=== PATIENT | female | born 1975 | race Caucasian/White ===

== ENCOUNTER 2016-07-24 18:31 | Emergency (ER) | payer OTHER ==
[~2016-07-24] VITALS: Ht 160 cm; Wt 68.0 kg
[~2016-07-24 18:31] MED LIST: /AUGM875TA OR; ADDE20TA PO; BACL10TA2; CELE10TA PO; CLIN300C PO; FLEXERIL OR; IBUP600T OR; IBUP800T; LIDO5DIS; VALI5TAB OR; VENL75TA2 OR; VICO5TAB PO; VICODAN
[2016-07-24 18:32] VITALS: BP 174/104
[2016-07-24] MEDS ORDERED: EFFE150C PO (18:38)
[2016-07-24] MEDS ORDERED: CLON1TAB PO (18:38)
[2016-07-24] MEDS ORDERED: ACETAMINOPHEN 325 MG TAB PO ONE (19:15)
[2016-07-24] MEDS ORDERED: TYLE325T5 PO (19:16)
[2016-07-24] MEDS ORDERED: AUGM875T27 PO (19:16)
[2016-07-24] MEDS ORDERED: AUGMENTIN 875 MG TAB PO ONE (19:30)
[2016-07-24] MEDS ORDERED: CIPRODEX OTIC SUSP 7.5ML AD SCH (21:00)
== END 2016-07-24 19:57 | disposition home or self-care (01) ==
LOC: M ED 19:22
DX: H60.91 Unspecified otitis externa, right ear (principal); Z87.440 Personal history of urinary (tract) infections; Z79.899 Other long term (current) drug therapy

== ENCOUNTER 2016-08-04 03:42 | Emergency (ER) | payer OTHER ==
[~2016-08-04] VITALS: Ht 160 cm; Wt 68.0 kg
[~2016-08-04 03:42] MED LIST changes: +AUGM875T27 PO; +CLON1TAB PO; +EFFE150C PO; +TYLE325T5 PO
[2016-08-04] MEDS ORDERED: VICO5TAB16 PO (04:19)
[2016-08-04] MEDS ORDERED: HYDR-3713 (04:27)
[2016-08-04 04:58] VITALS: BP 146/89
[2016-08-04] MEDS ORDERED: LOTR1CRE TOP (05:04)
== END 2016-08-04 05:18 | disposition home or self-care (01) ==
LOC: M ED 04:21
DX: B37.2 Candidiasis of skin and nail (principal); F41.9 Anxiety disorder, unspecified; F32.9 Major depressive disorder, single episode, unspecified; Z79.891 Long term (current) use of opiate analgesic; Z79.899 Other long term (current) drug therapy; Z88.8 Allergy status to other drugs, medicaments and biological substances

== ENCOUNTER 2016-09-07 17:35 | Emergency (ER) | payer OTHER ==
[~2016-09-07] VITALS: Ht 160 cm; Wt 79.1 kg
[~2016-09-07 17:35] MED LIST changes: -AUGM875T27 PO; +AUGM875T28 PO; +HYDR-3713; +LOTR1CRE11 TOP; +VICO5TAB16 PO
[2016-09-07 18:05] VITALS: BP 140/90
[2016-09-07] MEDS ORDERED: CLEO300C2 PO (18:05)
[2016-10-22] MEDS ORDERED: PRED20TA PO (10:57)
[2016-10-22] MEDS ORDERED: PERC7.5T11 PO (10:57)
== END 2016-09-07 18:15 | disposition home or self-care (01) ==
LOC: M ED 18:11
DX: L03.116 Cellulitis of left lower limb (principal); Z87.891 Personal history of nicotine dependence; Z79.899 Other long term (current) drug therapy; Z88.8 Allergy status to other drugs, medicaments and biological substances

== ENCOUNTER 2016-10-06 03:19 | Emergency (ER) | payer OTHER ==
[~2016-10-06 03:19] MED LIST changes: +CLEO300C2 PO
[2016-10-06] MEDS ORDERED: KETOROLAC 30 MG/ML VIAL (J1885) IV ONE (04:15)
[2016-10-06] MEDS ORDERED: NS 1,000 ML IV ONE (04:15)
[2016-10-06 05:04] LABS: BASO # 0.1 K/mm3 (0.0-0.2); BASO % 1.2 % (0.0-1.0); EOS # 0.1 K/mm3 (0.0-0.50); EOS % 2.2 % (0.0-3.0); LARGE UNSTAINED CELL # 0.1 K/mm3 (0.0-0.4); LYMPH # 1.8 K/mm3 (1.5-4.5); LYMPH % 30.6 % (24.0-44.0); MEAN CORPUSCULAR HEMOGLOBIN 29.4 pg (27.0-33.0); MEAN CORPUSCULAR HGB CONC 34.3 g/dl (32.0-36.5); MEAN CORPUSCULAR VOLUME 85.6 fl (80.0-96.0); MONO # 0.4 K/mm3 (0.0-0.8); MONO % 7.3 % (0.0-5.0); NEUTROPHILS # 3.3 K/mm3 (1.8-7.7); NEUTROPHILS % 56.7 % (36.0-66.0); PLATELET COUNT, AUTOMATED 293 k/mm3 (150-450); RED CELL DISTRIBUTION WIDTH 14.8 % (11.5-14.5); WHITE BLOOD COUNT 5.8 K/mm3 (4.0-10.0)
[2016-10-06 05:05] LABS: ADD MORPHOLOGY? YES
--- NOTE | 2016-10-06 05:06 | ED PDOC ---
Post-Departure Follow-Up This record was completed partially or completely on paper due to electronic EMR downtime. Please see the scanned paper chart attached. Renetta Dial MD Oct 06, 2016 05:06
[2016-10-06 05:21] LABS: ANISOCYTOSIS 2+; BURR CELLS 1+; OVALOCYTES 1+
[2016-10-06] MEDS ORDERED: ONDANSETRON 4MG/2ML VIAL (J2405) IV ONE (05:45)
[2016-10-06 06:02] LABS: ANION GAP 4 MEQ/L (8-16); BLOOD UREA NITROGEN 13 MG/DL (7-18); CALCIUM LEVEL 8.3 MG/DL (8.5-10.1); CARBON DIOXIDE LEVEL 24 MEQ/L (21-32); CHLORIDE LEVEL 108 MEQ/L (98-107); CREATININE FOR GFR 0.83 MG/DL (0.55-1.02); GLOMERULAR FILTRATION RATE > 60.0 (>60); GLUCOSE, FASTING 88 MG/DL (70-105); SODIUM LEVEL 136 MEQ/L (136-145)
[2016-10-06] MEDS: MORPHINE 4 MG/ML 1ML SYRINGE IV PRN ×2 (06:03→06:48)
[2016-10-06 06:07] LABS: POTASSIUM SERUM 6.1 MEQ/L (3.5-5.1)
[2016-10-06 06:08] VITALS: BP 149/78
[2016-10-06] MEDS ORDERED: PRED20TA PO (06:25)
[2016-10-06] MEDS ORDERED: methylPREDNISolone INJ 125 MG/2 ML VIAL (J2930) IV ONE (06:30)
--- NOTE | 2016-10-06 11:32 | REPUSA ---
CLINICAL HISTORY: Headaches. TECHNIQUE: Multiple axial brain CT scan sections were obtained from base to vertex without contrast a dministration. COMMENTS: The study shows normal configuration of sella turcica. There are no intra or extra-axial collections. There is no mass effect or midline shift. There is no evidence of hematoma formation. No hydrocephal us is present. No abnormal calcifications are noted. No significant abnormalities are seen either in the posterior fossa or supratentorial compartment. The sinuses and mastoid air cells are patent. IMPRESSION: No evidence of acute intracranial pathology. Thank you for your kind referral of this patient.
[2016-10-07] MEDS ORDERED: TYLE325T5 PO (14:41)
[2016-10-22] MEDS ORDERED: PERC7.5T11 PO (10:57)
[2016-10-22] MEDS ORDERED: PRED20TA PO (10:57)
== END 2016-10-06 06:57 | disposition home or self-care (01) ==
LOC: M ED 03:19
DX: M31.6 Other giant cell arteritis (principal); Z88.8 Allergy status to other drugs, medicaments and biological substances; Z79.899 Other long term (current) drug therapy

== ENCOUNTER 2016-10-07 14:20 | Emergency (ER) | payer OTHER ==
[~2016-10-07] VITALS: Ht 160 cm; Wt 68.2 kg
[~2016-10-07 14:20] MED LIST changes: +PRED20TA PO
[2016-10-07] MEDS ORDERED: TYLE325T5 PO (14:41)
[2016-10-07] MEDS ORDERED: methylPREDNISolone INJ 125 MG/2 ML VIAL (J2930) IV ONE (15:15)
[2016-10-07] MEDS ORDERED: MORPHINE 4 MG/ML 1ML SYRINGE IV ONE (15:15)
[2016-10-07] MEDS ORDERED: METOCLOPRAMIDE INJ 10MG/2ML VIAL (J2765) IV ONE (15:15)
[2016-10-07] MEDS ORDERED: NS 1,000 ML IV ONE (15:15)
[2016-10-07 15:36] LABS: EOS # 0.1 K/mm3 (0.0-0.50); EOS % 0.7 % (0.0-3.0); LARGE UNSTAINED CELL % 0.2 % (0.0-4.0); LYMPH % 7.1 % (24.0-44.0); MEAN CORPUSCULAR HEMOGLOBIN 30.3 pg (27.0-33.0); MEAN CORPUSCULAR VOLUME 84.2 fl (80.0-96.0); MONO # 0.5 K/mm3 (0.0-0.8); MONO % 3.3 % (0.0-5.0); NEUTROPHILS # 12.5 K/mm3 (1.8-7.7); NEUTROPHILS % 88.7 % (36.0-66.0); PLATELET COUNT, AUTOMATED 370 k/mm3 (150-450); RED CELL DISTRIBUTION WIDTH 13.8 % (11.5-14.5); WHITE BLOOD COUNT 14.1 K/mm3 (4.0-10.0)
[2016-10-07 15:55] LABS: ANION GAP 5 MEQ/L (8-16); BLOOD UREA NITROGEN 8 MG/DL (7-18); CALCIUM LEVEL 9.2 MG/DL (8.5-10.1); CARBON DIOXIDE LEVEL 26 MEQ/L (21-32); CHLORIDE LEVEL 103 MEQ/L (98-107); CREATININE FOR GFR 0.78 MG/DL (0.55-1.02); GLOMERULAR FILTRATION RATE > 60.0 (>60); GLUCOSE, FASTING 179 MG/DL (70-105); POTASSIUM SERUM 4.3 MEQ/L (3.5-5.1); SODIUM LEVEL 134 MEQ/L (136-145)
[2016-10-07 16:04] LABS: ERYTHROCYTE SEDIMENTATION RATE 17 mm/hr (0-20)
[2016-10-07 16:47] VITALS: BP 151/92
[2016-10-22] MEDS ORDERED: PERC7.5T11 PO (10:57)
[2016-10-22] MEDS ORDERED: PRED20TA PO (10:57)
== END 2016-10-07 16:51 | disposition home or self-care (01) ==
LOC: M ED 14:20
DX: R51 Headache (principal); M31.6 Other giant cell arteritis; R56.9 Unspecified convulsions; I10 Essential (primary) hypertension; F41.9 Anxiety disorder, unspecified; F43.10 Post-traumatic stress disorder, unspecified; Z88.8 Allergy status to other drugs, medicaments and biological substances; Z87.891 Personal history of nicotine dependence; Z79.899 Other long term (current) drug therapy

== ENCOUNTER 2016-10-13 20:53 | Emergency (ER) | payer OTHER ==
[~2016-10-13] VITALS: Ht 160 cm; Wt 80.7 kg
[2016-10-13] MEDS ORDERED: PERC5TAB12 PO (22:25)
[2016-10-13] MEDS ORDERED: PRED20TA PO (22:25)
[2016-10-13] MEDS ORDERED: predniSONE 20 MG TAB PO ONE (22:30)
[2016-10-13] MEDS ORDERED: PERCOCET 5MG/325MG TAB PO ONE (22:30)
[2016-10-13 22:40] VITALS: BP 159/99
[2016-10-22] MEDS ORDERED: PRED20TA PO (10:57)
[2016-10-22] MEDS ORDERED: PERC7.5T11 PO (10:57)
== END 2016-10-13 22:41 | disposition home or self-care (01) ==
LOC: M ED 20:53
DX: R51 Headache (principal); R05 Cough; I10 Essential (primary) hypertension; M31.6 Other giant cell arteritis; F17.210 Nicotine dependence, cigarettes, uncomplicated; Z87.442 Personal history of urinary calculi; Z88.8 Allergy status to other drugs, medicaments and biological substances; Z79.899 Other long term (current) drug therapy

== ENCOUNTER 2016-10-25 11:09 | Day surgery (SDC) | payer OTHER ==
[~2016-10-25] VITALS: Ht 160 cm; Wt 77.1 kg
[~2016-10-25 11:09] MED LIST changes: +PERC5TAB12 PO; +PERC7.5T11 PO
[2016-10-25] MEDS ORDERED: ceFAZolin SOD 1 GM in D5W MINI-BAG PLUS 50 ML IV ONE (11:15)
[2016-10-25] MEDS ORDERED: LR 1,000 ML IV ONE (11:15)
[2016-10-25] MEDS ORDERED: LIDOCAINE 2% INJ 100 MG/5 ML SDV (FOR ANES.) As Ordered ONE (12:44)
[2016-10-25] MEDS ORDERED: ONDANSETRON 4MG/2ML VIAL (J2405) As Ordered ONE (12:44)
[2016-10-25] MEDS ORDERED: MIDAZOLAM INJ 2 MG/2 ML VIAL (J2250) As Ordered ONE (12:44)
[2016-10-25] MEDS ORDERED: fentaNYL 100 MCG/2 ML INJECTION (J3010) As Ordered ONE (12:44)
[2016-10-25] MEDS ORDERED: PROPOFOL 200 MG/20 ML VIAL As Ordered ONE ×2 (12:44→14:11)
[2016-10-25] MEDS ORDERED: LIDOCAINE 1% SDV INJ 30 ML VIAL As Ordered ONE (13:13)
[2016-10-25] MEDS ORDERED: BUPIVACAINE HCL 0.25% 30 ML VIAL As Ordered ONE (13:13)
[2016-10-25] MEDS ORDERED: PERCOCET 5MG/325MG TAB As Ordered ONE (15:01)
[2016-10-25] MEDS ORDERED: ONDANSETRON 4MG/2ML VIAL (J2405) IV PRN (15:15)
[2016-10-25] MEDS ORDERED: PERCOCET 5MG/325MG TAB PO PRN (15:15)
[2016-10-25] MEDS ORDERED: METOCLOPRAMIDE INJ 10MG/2ML VIAL (J2765) IV PRN (15:15)
[2016-10-25] MEDS ORDERED: LR 1,000 ML IV SCH (15:15)
[2016-10-25] MEDS ORDERED: NORCO, ANEXSIA 5/325MG TABLET (HYDROcodone/ACETAMINOPHEN) PO PRN (15:15)
[2016-10-25 15:45] VITALS: BP 148/90
--- NOTE | 2016-10-26 08:54 | RO ---
DATE OF PROCEDURE: 10/25/2016 PREOPERATIVE DIAGNOSIS: Right temporal headaches. POSTOPERATIVE DIAGNOSIS: Right temporal headaches. PROCEDURE: Right temporal artery biopsy. SURGEON: Kza Moffett DO PLANT DIRECTOR: None. ANESTHESIA: Intravenous (IV) sedation with 5 mL of 1% lidocaine plain local. COMPLICATIONS: None. INDICATIONS FOR PROCEDURE: The patient is a 40-year-old female presents with a 3-week history of severe right-sided headaches with blurred vision, swelling over the right scalp, and pain to palpation. She was sent over for temporal artery biopsy. Recommendation was to proceed with procedure. Risks and benefits of procedure not limited but including bleeding, infection, damage to surrounding structures, hematoma, need for further surgery discussed in detail with the patient. Informed consent was obtained, and procedure was planned. DESCRIPTION OF PROCEDURE: The patient brought back to operating room #2 after sufficient sedation. The right scalp was sterilely prepped and draped with Betadine. The temporal artery was mapped out using Doppler; and once that was completed, the skin and subcutaneous tissue was infiltrated with local. Following that, a 4 cm incision was created with a #15 blade scalpel. This incision was carried down through the temporal fascia. Once that was completed, the artery was identified. A length of approximately 2.5 to 3 cm was mobilized gently. There was one branch heading posteriorly that was ligated with clips, then cut. The artery was then ligated proximally and distally with a 2-0 Vicryl suture. The artery was then cut out and sent for biopsy. The subcutaneous tissues were reapproximated with a 3-0 Vicryl suture interrupted, followed by a running 4-0 Vicryl subcuticular suture to approximate the skin edges. Once this was completed, the area was cleaned and dried, and a Steri-Strip was applied, thus ending procedure.
[2016-10-26] MEDS ORDERED: PERC5TAB12 PO (17:00)
[2016-10-26] MEDS ORDERED: CLAR1TAB2 PO (20:56)
== END 2016-10-25 15:40 | disposition home or self-care (01) ==
LOC: M SDC 11:09
PROVIDERS: ATTEND Surgery
DX: R51 Headache (principal); I10 Essential (primary) hypertension; F41.9 Anxiety disorder, unspecified; F32.9 Major depressive disorder, single episode, unspecified; R29.898 Other symptoms and signs involving the musculoskeletal system; M51.9 Unspecified thoracic, thoracolumbar and lumbosacral intervertebral disc disorder; F43.10 Post-traumatic stress disorder, unspecified; R56.9 Unspecified convulsions; Z88.8 Allergy status to other drugs, medicaments and biological substances; Z79.899 Other long term (current) drug therapy; Z98.51 Tubal ligation status; Z72.0 Tobacco use

== ENCOUNTER 2016-10-26 16:53 | Emergency (ER) | payer OTHER ==
[~2016-10-26] VITALS: Ht 160 cm; Wt 79.5 kg
[2016-10-26] MEDS ORDERED: PERC5TAB12 PO (17:00)
[2016-10-26] MEDS ORDERED: MORPHINE 4 MG/ML 1ML SYRINGE IM ONE (19:00)
[2016-10-26 20:28] VITALS: BP 150/108
[2016-10-26] MEDS ORDERED: PERCOCET 5MG/325MG TAB PO ONE (20:30)
[2016-10-26] MEDS ORDERED: CLAR1TAB2 PO (20:56)
== END 2016-10-26 21:10 | disposition home or self-care (01) ==
LOC: M ED 16:53
DX: G89.18 Other acute postprocedural pain (principal); R21 Rash and other nonspecific skin eruption

== ENCOUNTER → 2016-11-02 | Outpatient (REF) | payer OTHER ==
[~2016-11-02] MED LIST changes: +CIPR0.3S AS; +CLAR1TAB2 PO; +INDO25CA PO; +TRAM50TA2 PO
== END ==
LOC: M LAB REF 21:17
PROVIDERS: ATTEND Physician Assistant
DX: L30.9 Dermatitis, unspecified (principal)

== ENCOUNTER → 2016-11-02 | Outpatient (REF) ==
--- NOTE | 2016-11-02 16:56 | REP ---
LUMBOSACRAL SPINE: Three AP and lateral views of the lumbosacral spine are performed. There is no compression fracture or malalignment with normal lumbar lordosis. There is no evidence of spondylolysis or spondylolisthesis. There appears to be mild disc space narrowing at L5-S1 with mild sclerosis at the posterior facet joints at that level. The posterior elements are intact. IMPRESSION: Mild degenerative changes L5-S1 level. Signed by Kaz Roberts MD 11/02/2016 05:11 P
== END ==
LOC: M SMT 12:59
PROVIDERS: ATTEND Internal Medicine
DX: Z02.9 Encounter for administrative examinations, unspecified (principal); L30.9 Dermatitis, unspecified

== ENCOUNTER → 2016-11-10 | Outpatient (CLI) | payer OTHER ==
[2016-11-10 08:47] LABS: MEAN CORPUSCULAR HEMOGLOBIN 31.1 pg (27.0-33.0); MEAN CORPUSCULAR HGB CONC 36.3 g/dl (32.0-36.5); MEAN CORPUSCULAR VOLUME 85.7 fl (80.0-96.0); RED CELL DISTRIBUTION WIDTH 15.7 % (11.5-14.5); WHITE BLOOD COUNT 7.6 K/mm3 (4.0-10.0)
[2016-11-10 09:27] LABS: ALBUMIN 3.7 GM/DL (3.2-5.2); ALBUMIN/GLOBULIN RATIO 1.09 (1.00-1.93); ALKALINE PHOSPHATASE 75 U/L (45-117); ALT/SGPT 54 U/L (12-78); ANION GAP 7 MEQ/L (8-16); AST/SGOT 29 U/L (15-37); BILIRUBIN,TOTAL 0.4 MG/DL (0.2-1.0); BLOOD UREA NITROGEN 11 MG/DL (7-18); CARBON DIOXIDE LEVEL 25 MEQ/L (21-32); CHLORIDE LEVEL 108 MEQ/L (98-107); CHOLESTEROL LEVEL 218 MG/DL (<200); CREATININE FOR GFR 0.76 MG/DL (0.55-1.02); GLOMERULAR FILTRATION RATE > 60.0 (>60); GLUCOSE, FASTING 110 MG/DL (70-105); POTASSIUM SERUM 4.8 MEQ/L (3.5-5.1); SODIUM LEVEL 140 MEQ/L (136-145); TOTAL PROTEIN 7.1 GM/DL (6.4-8.2); TRIGLYCERIDES LEVEL 178 MG/DL (<150)
== END ==
LOC: M LAB 08:06
PROVIDERS: ATTEND Family Medicine
DX: R53.83 Other fatigue (principal)

== ENCOUNTER 2017-01-12 18:16 | Emergency (ER) | payer OTHER ==
[~2017-01-12] VITALS: Ht 160 cm; Wt 83.2 kg
[2017-01-12 18:16] VITALS: BP 169/108
[~2017-01-12 18:16] MED LIST changes: -CIPR0.3S AS; -INDO25CA PO; -TRAM50TA2 PO
[2017-01-13] MEDS ORDERED: TRAM50TA2 PO (14:46)
[2017-01-13] MEDS ORDERED: INDO25CA PO (14:46)
[2017-01-13] MEDS ORDERED: CIPR0.3S AS ×2 (14:46→14:55)
== END 2017-01-12 19:00 | disposition left against medical advice (07) ==
LOC: M ED 18:16
DX: H92.09 Otalgia, unspecified ear (principal); Z53.21 Procedure and treatment not carried out due to patient leaving prior to being seen by health care provider

== ENCOUNTER 2017-01-13 13:25 | Emergency (ER) | payer OTHER ==
[~2017-01-13] VITALS: Ht 160 cm; Wt 82.7 kg
[2017-01-13] MEDS ORDERED: TRAM50TA2 PO (14:46)
[2017-01-13] MEDS ORDERED: CIPR0.3S AS ×2 (14:46→14:55)
[2017-01-13] MEDS ORDERED: INDO25CA PO (14:46)
[2017-01-13 15:02] VITALS: BP 164/120
--- NOTE | 2017-01-13 15:24 | REP ---
Chest x-ray: Two views. History: Right-sided neck and facial swelling. . Comparison study: March 18, 2016. . Findings: The lungs are well inflated and free of infiltrate. The pleural angles are sharp. The heart size is normal. Pulmonary vasculature is not increased. No significant bony abnormality is seen. Impression: Negative chest x-ray. Signed by Sincere Pena MD 01/13/2017 03:16 P
== END 2017-01-13 15:35 | disposition home or self-care (01) ==
LOC: M ED 13:25
DX: H60.92 Unspecified otitis externa, left ear (principal); R22.0 Localized swelling, mass and lump, head; I10 Essential (primary) hypertension; R51 Headache; R56.9 Unspecified convulsions; F41.9 Anxiety disorder, unspecified; F33.9 Major depressive disorder, recurrent, unspecified; F43.10 Post-traumatic stress disorder, unspecified; Z79.899 Other long term (current) drug therapy; Z88.8 Allergy status to other drugs, medicaments and biological substances

== ENCOUNTER 2017-02-15 16:51 | Emergency (ER) | payer OTHER ==
[~2017-02-15] VITALS: Ht 160 cm; Wt 81.8 kg
[~2017-02-15 16:51] MED LIST changes: +CIPR0.3S AS; +INDO25CA PO; +TRAM50TA2 PO
[2017-02-15] MEDS ORDERED: OXAY1TAB (17:16)
[2017-02-15] MEDS ORDERED: VALI5TAB PO (17:16)
[2017-02-15] MEDS ORDERED: NS 1,000 ML IV ONE (20:00)
[2017-02-15] MEDS ORDERED: KETOROLAC 30 MG/ML VIAL (J1885) IV ONE (20:00)
[2017-02-15] MEDS ORDERED: MORPHINE 4 MG/ML 1ML SYRINGE IV ONE (20:00)
[2017-02-15] MEDS ORDERED: HYDROmorphone HCL 1 MG/ML SYRINGE (J1170) IV PRN (21:15)
[2017-02-15] MEDS ORDERED: METOCLOPRAMIDE INJ 10MG/2ML VIAL (J2765) IV ONE (21:15)
[2017-02-15 21:22] VITALS: BP 159/92
== END 2017-02-15 21:59 | disposition home or self-care (01) ==
LOC: M ED 16:51
DX: R51 Headache (principal); Z87.891 Personal history of nicotine dependence
CPT/HCPCS: 96361; 96374; 96375; 99284; J1170; J1885; J2765

== ENCOUNTER → 2017-02-28 | Outpatient (REF) | payer OTHER ==
[~2017-02-28] MED LIST changes: +OXAY1TAB; +VALI5TAB PO
[2017-02-28 17:48] LABS: ANION GAP 12 MEQ/L (8-16); BLOOD UREA NITROGEN 9 MG/DL (7-18); CALCIUM LEVEL 8.7 MG/DL (8.5-10.1); CARBON DIOXIDE LEVEL 21 MEQ/L (21-32); CHLORIDE LEVEL 107 MEQ/L (98-107); CREATININE FOR GFR 0.72 MG/DL (0.55-1.02); GLOMERULAR FILTRATION RATE > 60.0 (>60); GLUCOSE, FASTING 94 MG/DL (70-105); POTASSIUM SERUM 4.4 MEQ/L (3.5-5.1); SODIUM LEVEL 140 MEQ/L (136-145)
[2017-02-28 18:01] LABS: MEAN CORPUSCULAR HGB CONC 33.4 g/dl (32.0-36.5); MEAN CORPUSCULAR VOLUME 86.8 fl (80.0-96.0); PLATELET COUNT, AUTOMATED 368 10^3/uL (150-450); RED CELL DISTRIBUTION WIDTH 14.4 % (11.5-14.5); WHITE BLOOD COUNT 6.4 10^3/uL (4.0-10.0)
== END ==
LOC: M SFHCLERA 12:51
PROVIDERS: ATTEND Family Medicine
DX: Z79.899 Other long term (current) drug therapy (principal); F43.10 Post-traumatic stress disorder, unspecified; F41.1 Generalized anxiety disorder

== ENCOUNTER 2017-04-04 21:35 | Emergency (ER) | payer OTHER ==
[2017-04-05] MEDS: ONDANSETRON 4MG/2ML VIAL (J2405) IV (00:45)
[2017-04-05] MEDS: NS 1,000 ML IV (00:45)
[2017-04-05] MEDS: HYDROmorphone HCL 1 MG/ML SYRINGE (J1170) IV (00:53)
[2017-04-05] MEDS: HYDROmorphone 2 MG TAB PO (02:00)
== END 2017-04-05 02:11 | disposition home or self-care (01) ==
LOC: M ED 21:35
DX: R51 Headache (principal); G89.29 Other chronic pain; R56.9 Unspecified convulsions; F41.9 Anxiety disorder, unspecified; F33.9 Major depressive disorder, recurrent, unspecified; F43.10 Post-traumatic stress disorder, unspecified; Z79.899 Other long term (current) drug therapy; Z88.8 Allergy status to other drugs, medicaments and biological substances; Z98.890 Other specified postprocedural states; Z87.891 Personal history of nicotine dependence
CPT/HCPCS: J1170

== ENCOUNTER 2017-04-11 20:19 | Emergency (ER) | payer OTHER ==
[2017-04-11] MEDS: oxyCODONE 5MG TAB PO (21:11)
[2017-04-11] MEDS: ONDANSETRON 4 MG ORAL DISINTEGRATING TAB (S0181) PO (21:12)
== END 2017-04-11 21:34 | disposition home or self-care (01) ==
LOC: M ED 20:19
DX: R51 Headache (principal); R11.2 Nausea with vomiting, unspecified; R53.83 Other fatigue
CPT/HCPCS: 99283

== ENCOUNTER 2017-04-29 05:44 | Emergency (ER) | payer OTHER ==
[2017-04-29] MEDS: ONDANSETRON 4MG/2ML VIAL (J2405) IV (07:47)
[2017-04-29] MEDS: MORPHINE 4 MG/ML 1ML VIAL (J2270) IV (07:47)
[2017-04-29] MEDS: NS 1,000 ML IV (07:48)
[2017-04-29 08:05] LABS: BASO % 0.5 % (0.0-1.0); EOS # 0.2 10^3/uL (0.0-0.50); EOS % 1.8 % (0.0-3.0); HEMATOCRIT 39.7 % (36.0-47.0); HEMOGLOBIN 13.6 g/dl (12.0-16.0); IMMATURE GRANULOCYTE % 0.2 % (0-3.0); LYMPH # 2.1 10^3/uL (1.5-4.5); LYMPH % 24.6 % (24.0-44.0); MEAN CORPUSCULAR HEMOGLOBIN 28.8 pg (27.0-33.0); MEAN CORPUSCULAR HGB CONC 34.3 g/dl (32.0-36.5); MEAN CORPUSCULAR VOLUME 83.9 fl (80.0-96.0); MONO # 0.6 10^3/uL (0.0-0.8); MONO % 7.5 % (0.0-5.0); NEUTROPHILS # 5.6 10^3/uL (1.8-7.7); NEUTROPHILS % 65.4 % (36.0-66.0); PLATELET COUNT, AUTOMATED 331 10^3/uL (150-450); RED BLOOD COUNT 4.73 10^6/uL (4.00-5.40); RED CELL DISTRIBUTION WIDTH 13.1 % (11.5-14.5); WHITE BLOOD COUNT 8.5 10^3/uL (4.0-10.0)
[2017-04-29 08:34] LABS: ALBUMIN 3.9 GM/DL (3.2-5.2); ALBUMIN/GLOBULIN RATIO 1.03 (1.00-1.93); ALKALINE PHOSPHATASE 86 U/L (45-117); ALT/SGPT 29 U/L (12-78); AMYLASE 40 U/L (25-115); ANION GAP 7 MEQ/L (8-16); AST/SGOT 13 U/L (7-37); BILIRUBIN,DIRECT < 0.1 MG/DL (0.0-0.2); BILIRUBIN,TOTAL 0.4 MG/DL (0.2-1.0); BLOOD UREA NITROGEN 14 MG/DL (7-18); CALCIUM LEVEL 8.5 MG/DL (8.5-10.1); CARBON DIOXIDE LEVEL 23 MEQ/L (21-32); CHLORIDE LEVEL 110 MEQ/L (98-107); CREATININE FOR GFR 0.95 MG/DL (0.55-1.30); FREE T4 0.86 NG/DL (0.76-1.46); GLOMERULAR FILTRATION RATE > 60.0 (>60); GLUCOSE, FASTING 113 MG/DL (70-100); POTASSIUM SERUM 3.7 MEQ/L (3.5-5.1); SODIUM LEVEL 140 MEQ/L (136-145); TOTAL PROTEIN 7.7 GM/DL (6.4-8.2)
[2017-04-29] MEDS ORDERED: ISOVUE-370 76% 100ML VIAL (Q9967) As Ordered (08:36)
== END 2017-04-29 09:37 | disposition home or self-care (01) ==
LOC: M ED 05:44
DX: E03.9 Hypothyroidism, unspecified (principal); E04.1 Nontoxic single thyroid nodule; I10 Essential (primary) hypertension; G43.909 Migraine, unspecified, not intractable, without status migrainosus; F43.10 Post-traumatic stress disorder, unspecified; M51.9 Unspecified thoracic, thoracolumbar and lumbosacral intervertebral disc disorder; Z79.899 Other long term (current) drug therapy; Z88.8 Allergy status to other drugs, medicaments and biological substances; Z87.891 Personal history of nicotine dependence
CPT/HCPCS: J2270

== ENCOUNTER → 2017-05-06 | Outpatient (CLI) | payer OTHER | LOC: M PAIN 09:30 | DX: M46.1 Sacroiliitis, not elsewhere classified (principal); M51.16 Intervertebral disc disorders with radiculopathy, lumbar region; M51.17 Intervertebral disc disorders with radiculopathy, lumbosacral region; M54.5 Low back pain; G89.29 Other chronic pain; M41.9 Scoliosis, unspecified; F41.9 Anxiety disorder, unspecified; M79.7 Fibromyalgia; E03.9 Hypothyroidism, unspecified; Z79.899 Other long term (current) drug therapy; Z88.8 Allergy status to other drugs, medicaments and biological substances; Z87.891 Personal history of nicotine dependence | CPT/HCPCS: G0463 ==

== ENCOUNTER 2017-05-07 18:34 | Emergency (ER) | payer OTHER ==
[2017-05-07] MEDS: zolPIDEM TARTRATE 5 MG TAB PO (21:57)
[2017-05-07] MEDS: LIDOCAINE VISCOUS 2% SOLN 15ML UDC MT (22:00)
== END 2017-05-07 22:11 | disposition home or self-care (01) ==
LOC: M ED 18:34
DX: E06.9 Thyroiditis, unspecified (principal); I10 Essential (primary) hypertension; Z87.891 Personal history of nicotine dependence; Z79.899 Other long term (current) drug therapy; Z88.8 Allergy status to other drugs, medicaments and biological substances
CPT/HCPCS: 87880

== ENCOUNTER → 2017-05-11 | Outpatient (REF) | payer OTHER ==
[2017-05-11 12:02] LABS: THYROID PEROXIDASE ANTIBODY < 28.0 U/ML (<60.0)
[2017-05-11 12:04] LABS: TOTAL T3 122.4 NG/DL (60.0-181.0)
[2017-05-11 12:21] LABS: FREE T4 0.93 NG/DL (0.76-1.46)
== END ==
LOC: M LABDRAW1 10:39
DX: E03.9 Hypothyroidism, unspecified (principal)
CPT/HCPCS: 84443

== ENCOUNTER 2017-05-20 03:44 | Emergency (ER) | payer OTHER ==
[2017-05-20] MEDS: KETOROLAC 60 MG/2 ML VIAL (J1885) IM (06:30)
[2017-05-20 06:59] LABS: BASO # 0.1 10^3/uL (0.0-0.2); BASO % 0.7 % (0.0-1.0); EOS # 0.2 10^3/uL (0.0-0.50); HEMATOCRIT 36.3 % (36.0-47.0); HEMOGLOBIN 12.7 g/dl (12.0-16.0); IMMATURE GRANULOCYTE % 0.1 % (0-3.0); LYMPH # 2.1 10^3/uL (1.5-4.5); MEAN CORPUSCULAR HEMOGLOBIN 29.3 pg (27.0-33.0); MEAN CORPUSCULAR VOLUME 83.6 fl (80.0-96.0); MONO # 0.8 10^3/uL (0.0-0.8); MONO % 9.5 % (0.0-5.0); NEUTROPHILS # 4.9 10^3/uL (1.8-7.7); NEUTROPHILS % 60.7 % (36.0-66.0); PLATELET COUNT, AUTOMATED 298 10^3/uL (150-450); RED BLOOD COUNT 4.34 10^6/uL (4.00-5.40); RED CELL DISTRIBUTION WIDTH 13.1 % (11.5-14.5)
[2017-05-20] MEDS ORDERED: ACETAMINOPHEN 325 MG TAB PO (07:15)
[2017-05-20 07:30] LABS: ERYTHROCYTE SEDIMENTATION RATE 24 mm/hr (0-20)
[2017-05-20] MEDS: oxyCODONE 5MG TAB PO (07:46)
== END 2017-05-20 08:16 | disposition home or self-care (01) ==
LOC: M ED 03:44
DX: M54.2 Cervicalgia (principal); G89.29 Other chronic pain; G43.009 Migraine without aura, not intractable, without status migrainosus; R21 Rash and other nonspecific skin eruption; F17.210 Nicotine dependence, cigarettes, uncomplicated; Z79.899 Other long term (current) drug therapy; Z88.8 Allergy status to other drugs, medicaments and biological substances
CPT/HCPCS: J1885

== ENCOUNTER → 2017-05-30 | Outpatient (REF) | payer OTHER | LOC: M LAB REF 14:19 | DX: E04.2 Nontoxic multinodular goiter (principal) ==

== ENCOUNTER 2017-06-01 20:33 | Emergency (ER) | payer OTHER ==
[2017-06-01] MEDS: KETOROLAC 30 MG/ML VIAL (J1885) IV (23:30)
[2017-06-02 00:14] LABS: ANION GAP 7 MEQ/L (8-16); BLOOD UREA NITROGEN 18 MG/DL (7-18); CALCIUM LEVEL 9.2 MG/DL (8.5-10.1); CARBON DIOXIDE LEVEL 25 MEQ/L (21-32); CHLORIDE LEVEL 110 MEQ/L (98-107); GLOMERULAR FILTRATION RATE > 60.0 (>60); GLUCOSE, FASTING 104 MG/DL (70-100); POTASSIUM SERUM 4.1 MEQ/L (3.5-5.1); SODIUM LEVEL 142 MEQ/L (136-145)
[2017-06-02] MEDS ORDERED: ISOVUE-370 76% 100ML VIAL (Q9967) As Ordered (00:32)
[2017-06-02] MEDS: PERCOCET 5MG/325MG TAB PO (02:24)
== END 2017-06-02 02:30 | disposition home or self-care (01) ==
LOC: M ED 20:33
DX: G43.909 Migraine, unspecified, not intractable, without status migrainosus (principal); Z88.8 Allergy status to other drugs, medicaments and biological substances; Z79.899 Other long term (current) drug therapy
CPT/HCPCS: Q9967

== ENCOUNTER → 2017-06-06 | Outpatient (CLI) | payer OTHER | LOC: M PAIN 11:15 | DX: M46.1 Sacroiliitis, not elsewhere classified (principal); M51.16 Intervertebral disc disorders with radiculopathy, lumbar region; M51.17 Intervertebral disc disorders with radiculopathy, lumbosacral region; M54.5 Low back pain; G89.29 Other chronic pain; F32.9 Major depressive disorder, single episode, unspecified; F41.9 Anxiety disorder, unspecified; Z79.891 Long term (current) use of opiate analgesic; Z79.899 Other long term (current) drug therapy; Z88.8 Allergy status to other drugs, medicaments and biological substances; Z87.891 Personal history of nicotine dependence | CPT/HCPCS: G0463 ==

== ENCOUNTER → 2017-06-20 | Outpatient (CLI) | payer OTHER | LOC: M PAIN 14:30 | DX: M51.16 Intervertebral disc disorders with radiculopathy, lumbar region (principal); M51.17 Intervertebral disc disorders with radiculopathy, lumbosacral region; M54.5 Low back pain; M79.7 Fibromyalgia; F41.9 Anxiety disorder, unspecified; E03.9 Hypothyroidism, unspecified; M41.9 Scoliosis, unspecified; Z79.891 Long term (current) use of opiate analgesic; Z79.899 Other long term (current) drug therapy; Z88.8 Allergy status to other drugs, medicaments and biological substances; Z87.891 Personal history of nicotine dependence | CPT/HCPCS: G0463 ==

== ENCOUNTER → 2017-07-04 | Outpatient (CLI) | payer OTHER | LOC: M PAIN 10:30 | DX: M51.16 Intervertebral disc disorders with radiculopathy, lumbar region (principal); M51.17 Intervertebral disc disorders with radiculopathy, lumbosacral region; M54.5 Low back pain; M79.7 Fibromyalgia; F41.9 Anxiety disorder, unspecified; E03.9 Hypothyroidism, unspecified; Z79.891 Long term (current) use of opiate analgesic; Z79.899 Other long term (current) drug therapy; Z88.8 Allergy status to other drugs, medicaments and biological substances; Z87.891 Personal history of nicotine dependence | CPT/HCPCS: G0463 ==

== ENCOUNTER → 2017-07-06 | Outpatient (REF) | payer OTHER ==
[2017-07-06 15:48] LABS: BASO % 0.6 % (0.0-1.0); EOS # 0.1 10^3/uL (0.0-0.50); EOS % 1.9 % (0.0-3.0); HEMATOCRIT 37.8 % (36.0-47.0); IMMATURE GRANULOCYTE % 0.3 % (0-3.0); LYMPH # 1.4 10^3/uL (1.5-4.5); LYMPH % 19.6 % (24.0-44.0); MEAN CORPUSCULAR HEMOGLOBIN 28.3 pg (27.0-33.0); MEAN CORPUSCULAR HGB CONC 34.4 g/dl (32.0-36.5); MEAN CORPUSCULAR VOLUME 82.2 fl (80.0-96.0); MONO # 0.4 10^3/uL (0.0-0.8); MONO % 6.2 % (0.0-5.0); NEUTROPHILS % 71.4 % (36.0-66.0); PLATELET COUNT, AUTOMATED 320 10^3/uL (150-450); RED CELL DISTRIBUTION WIDTH 13.2 % (11.5-14.5); WHITE BLOOD COUNT 6.9 10^3/uL (4.0-10.0)
[2017-07-06 16:08] LABS: ALBUMIN 3.8 GM/DL (3.2-5.2); ALBUMIN/GLOBULIN RATIO 1.06 (1.00-1.93); ALKALINE PHOSPHATASE 98 U/L (45-117); ALT/SGPT 36 U/L (12-78); ANION GAP 5 MEQ/L (8-16); AST/SGOT 22 U/L (7-37); BILIRUBIN,TOTAL 0.4 MG/DL (0.2-1.0); BLOOD UREA NITROGEN 9 MG/DL (7-18); CALCIUM LEVEL 8.8 MG/DL (8.5-10.1); CARBON DIOXIDE LEVEL 24 MEQ/L (21-32); CHLORIDE LEVEL 112 MEQ/L (98-107); CREATININE FOR GFR 0.86 MG/DL (0.55-1.30); GLOMERULAR FILTRATION RATE > 60.0 (>60); GLUCOSE, FASTING 115 MG/DL (70-100); POTASSIUM SERUM 4.1 MEQ/L (3.5-5.1); RHEUMATOID FACTOR QUANT < 10.0 IU/ML (<15.0); SODIUM LEVEL 141 MEQ/L (136-145); THYROID STIMULATING HORMONE 0.975 uIU/ML (0.358-3.740); TOTAL PROTEIN 7.4 GM/DL (6.4-8.2)
[2017-07-06 16:38] LABS: ERYTHROCYTE SEDIMENTATION RATE 27 mm/hr (0-20)
[2017-07-08 14:19] LABS: ANTINUCLEAR ANTIBODIES DIRECT Negative (Negative)
== END ==
LOC: M LABDRAW1 14:16
DX: R51 Headache (principal)

== ENCOUNTER → 2017-07-18 | Outpatient (CLI) | payer OTHER | LOC: M PAIN 11:45 | DX: G89.29 Other chronic pain (principal); M51.16 Intervertebral disc disorders with radiculopathy, lumbar region; M51.17 Intervertebral disc disorders with radiculopathy, lumbosacral region; M54.5 Low back pain; M79.7 Fibromyalgia; F41.9 Anxiety disorder, unspecified; E03.9 Hypothyroidism, unspecified; E04.1 Nontoxic single thyroid nodule; Z79.891 Long term (current) use of opiate analgesic; Z87.891 Personal history of nicotine dependence; Z79.899 Other long term (current) drug therapy; Z88.8 Allergy status to other drugs, medicaments and biological substances | CPT/HCPCS: G0463 ==

== ENCOUNTER → 2017-07-26 | Outpatient (REF) | payer OTHER ==
[2017-07-26 22:33] LABS: CONTROL LINE MONO INT CTR LINE PRESENT; MONO SCRN NEGATIVE (NEGATIVE)
[2017-07-27 07:57] LABS: FOLATE 5.7 NG/ML; VITAMIN B12 LEVEL 202 PG/ML
[2017-07-29 00:09] LABS: Lyme Disease IgG/IgM Antibodie <0.91 ISR (0.00-0.90); Lyme Disease IgM Ab Quantitati <0.80 index (0.00-0.79)
== END ==
LOC: M LABDRAW1 17:15
DX: M51.16 Intervertebral disc disorders with radiculopathy, lumbar region (principal)

== ENCOUNTER → 2017-08-09 | Outpatient (CLI) | payer OTHER | LOC: M PAIN 10:30 | DX: M51.16 Intervertebral disc disorders with radiculopathy, lumbar region (principal); M51.17 Intervertebral disc disorders with radiculopathy, lumbosacral region; M54.5 Low back pain; M79.7 Fibromyalgia; F41.9 Anxiety disorder, unspecified; E03.9 Hypothyroidism, unspecified; Z79.891 Long term (current) use of opiate analgesic; Z79.899 Other long term (current) drug therapy; Z88.8 Allergy status to other drugs, medicaments and biological substances; Z87.891 Personal history of nicotine dependence | CPT/HCPCS: G0463 ==

== ENCOUNTER → 2017-09-30 | Outpatient (CLI) | payer OTHER | LOC: M PAIN 10:45 | DX: M51.16 Intervertebral disc disorders with radiculopathy, lumbar region (principal); M51.17 Intervertebral disc disorders with radiculopathy, lumbosacral region; M79.7 Fibromyalgia; Z79.891 Long term (current) use of opiate analgesic; T40.2X5A Adverse effect of other opioids, initial encounter; K59.03 Drug induced constipation; M41.9 Scoliosis, unspecified; F41.9 Anxiety disorder, unspecified; E03.9 Hypothyroidism, unspecified; E04.1 Nontoxic single thyroid nodule; Z87.891 Personal history of nicotine dependence; Z79.899 Other long term (current) drug therapy; Z88.8 Allergy status to other drugs, medicaments and biological substances | CPT/HCPCS: G0463 ==

== ENCOUNTER → 2017-12-19 | Outpatient (CLI) | payer OTHER | LOC: M PAIN 11:30 | DX: M51.16 Intervertebral disc disorders with radiculopathy, lumbar region (principal); M51.17 Intervertebral disc disorders with radiculopathy, lumbosacral region; M79.7 Fibromyalgia; T40.2X5A Adverse effect of other opioids, initial encounter; K59.03 Drug induced constipation; F41.9 Anxiety disorder, unspecified; E03.9 Hypothyroidism, unspecified; I10 Essential (primary) hypertension; F43.10 Post-traumatic stress disorder, unspecified; Z72.0 Tobacco use; Z79.899 Other long term (current) drug therapy; Z88.8 Allergy status to other drugs, medicaments and biological substances | CPT/HCPCS: G0463 ==

== ENCOUNTER → 2018-01-13 | Outpatient (CLI) | payer OTHER | LOC: M RAD 15:54 | DX: M51.16 Intervertebral disc disorders with radiculopathy, lumbar region (principal) | CPT/HCPCS: 72148 ==

== ENCOUNTER → 2018-01-19 | Outpatient (CLI) | payer OTHER | LOC: M PAIN 11:30 | DX: M51.16 Intervertebral disc disorders with radiculopathy, lumbar region (principal); M51.17 Intervertebral disc disorders with radiculopathy, lumbosacral region; M79.7 Fibromyalgia; Z79.891 Long term (current) use of opiate analgesic; T40.2X5A Adverse effect of other opioids, initial encounter; K59.03 Drug induced constipation; F41.9 Anxiety disorder, unspecified; M41.9 Scoliosis, unspecified; E03.9 Hypothyroidism, unspecified; E04.1 Nontoxic single thyroid nodule; I10 Essential (primary) hypertension; F43.10 Post-traumatic stress disorder, unspecified; F17.210 Nicotine dependence, cigarettes, uncomplicated; Z79.899 Other long term (current) drug therapy; Z88.8 Allergy status to other drugs, medicaments and biological substances | CPT/HCPCS: G0463 ==

== ENCOUNTER 2018-03-07 07:50 | Emergency (ER) | payer OTHER | END 2018-03-07 09:45 | disposition home or self-care (01) | LOC: M ED 07:50 | DX: M25.471 Effusion, right ankle (principal); M25.472 Effusion, left ankle; M25.461 Effusion, right knee; M25.462 Effusion, left knee; I10 Essential (primary) hypertension; M51.9 Unspecified thoracic, thoracolumbar and lumbosacral intervertebral disc disorder; F43.10 Post-traumatic stress disorder, unspecified; F41.9 Anxiety disorder, unspecified; F32.9 Major depressive disorder, single episode, unspecified; G43.909 Migraine, unspecified, not intractable, without status migrainosus; Z87.442 Personal history of urinary calculi; M79.7 Fibromyalgia; G25.81 Restless legs syndrome; M19.90 Unspecified osteoarthritis, unspecified site; Z72.0 Tobacco use; Z79.899 Other long term (current) drug therapy; Z88.8 Allergy status to other drugs, medicaments and biological substances | CPT/HCPCS: 93970 ==

== ENCOUNTER → 2018-03-17 | Outpatient (CLI) | payer OTHER ==
[~2018-03-17] MED LIST changes: +AMBI10TA PO; +BUSP1TAB PO; -CLON1TAB PO; +CLON1TAB8 PO; +DULO30CA PO; -EFFE150C PO; +EFFE150C2 PO; +HYDR25OI TOP; +LACT10SO3 PO; +LIDO1SOL7 MT; -LOTR1CRE11 TOP; +LOTR1CRE12 TOP; +MOVA1TAB2 PO; +OXYC-517 PO; +OXYC1TAB23 PO; +SUCR1TA PO; +TRAM50TA2; +ZOFR4TAB14 PO; +ZONI100C2 PO; +ZONI25CA2 PO; +[UNRECOGNIZED DRUG - CODE] PO
--- NOTE | 2018-03-17 16:37 | REP ---
MRI brain without contrast: History: Headache . Comparison study: No comparison brain MRI. Comparison brain CT study October 06, 2016. Technique: Axial and sagittal imaging planes are utilized for T1 and T2-weighted scans. Sequences include spin-echo, fast spin echo, FLAIR, and diffusion weighted sequences. MRI findings: There is magnetic field susceptibility artifact emanating from the right cheek soft tissues in this patient with known dermal piercing. No bony calvarial lesion is seen. Craniocervical junction and upper cervical cord are normal in appearance. There is no MR evidence of significant paranasal sinus disease. No intraorbital abnormality is seen. The lateral, third, and fourth ventricles are normal in size and position. Roberts-white differentiation pattern is intact above and below the tentorium. There is no evidence of intracranial hemorrhage. No mass, infarction, extra-axial fluid collection or midline shift is seen. No abnormal white matter lesion is seen. Impression: Negative noncontrast brain MRI study. Electronically Signed by Sincere Pena MD 03/17/2018 04:28 P
== END ==
LOC: M PLARAD 13:29
PROVIDERS: ATTEND Physician Assistant Medical
DX: R51 Headache (principal); R41.840 Attention and concentration deficit

== ENCOUNTER → 2018-04-11 | Outpatient (CLI) | payer OTHER ==
--- NOTE | 2018-04-22 00:38 | ECWPNPC ---
PATIENT NAME: DENISE ABAD : 1975 GENDER: FEMALE VISIT DATE: 04/11/2018 DISCHARGE DATE: 04/11/18 1501 VISIT LOCKED DATE TIME: PHYSICIAN: CHARAN FERRELL RESOURCE: CHARAN FERRELL REASON FOR APPOINTMENT 1. SW PT-BACK HISTORY OF PRESENT ILLNESS HISTORY OF PRESENT ILLNESS: HERE FOR ROUTINE F/U AND MANAGEMENT OF CHRONIC GENERALIZED BODY PAIN.COMPLAINING OF INCEASE IN KNEE PAIN LATELY.RATING PAIN VAS 8/10.PAIN AWAKENS HER FROM SLEEP.DESCRIBES PAIN CONSTANT,ACHING AND BURNING. PAIN THE PATIENT DESCRIBES THE PAIN... FALL RISK SCREENING: SCREENING :NO FALLS IN THE PAST YEAR CURRENT MEDICATIONS TAKING CARAFATE 1 GM TABLET 1 TABLET ORALLY FOUR TIMES DAILY PRN TAKING CYMBALTA 60 MG CAPSULE DELAYED RELEASE PARTICLES 1 CAPSULE ORALLY BID TAKING LACTULOSE 10 GM/15ML SOLUTION 15 ML ORALLY ONCE A DAY TAKING MOVANTIK 25 MG TABLET 1 TABLET IN THE MORNING ORALLY ONCE A DAY TAKING ZOHYDRO ER 40 MG CAPSULE ER 12 HOUR ABUSE-DETERRENT 1 CAPSULE ORALLY EVERY 12 HRS TAKING AMLODIPINE BESYLATE 10 MG TABLET 1 TABLET ORALLY ONCE A DAY TAKING FUROSEMIDE 40 MG TABLET 1 TABLET ORALLY ONCE A DAY TAKING POTASSIUM CHLORIDE CR 8 MEQ ORALLY DAILY NOT-TAKING ZONISAMIDE 100 MG CAPSULE 1 CAPSULE--TAKES 150 MGS ORALLY BID NOT-TAKING VITAMIN B2 100 MG ORALLY BID DISCONTINUED METOPROLOL TARTRATE 25 MG TABLET 1 TABLET WITH FOOD ORALLY TWICE A DAY DISCONTINUED SENNOSIDES-DOCUSATE SODIUM 8.6-50 MG TABLET 2 CAPSULES AT BEDTIME NEEDED ORALLY ONCE A DAY, NOTES: NEEDS INCREASE DISCONTINUED MAGNESIUM OXIDE 500 MG TABLET ORALLY MEDICATION LIST REVIEWED AND RECONCILED WITH THE PATIENT PAST MEDICAL HISTORY L5-S1 CENTRAL DISC HERNIATION (BEING COVERED UNDER WORKMAN COMP) SCOLOSIS ANXIETY FIBROMYALGIA HYPOTHYROIDISM THYROID NODULE HYPERTENSION PTSD ALLERGIES BENADRYL: RESTLESS LEG : SIDE EFFECTS SURGICAL HISTORY CSECTION X 2 2001 TUBAL LIGATION WITH LEFT OVARY AND TUBE REMOVAL SECONDARY TO CYST 2004 BIOPSY OF TEMPORAL ARTERY FAMILY HISTORY FATHER: ALIVE 63 YRS, DM DUE TO AGENT ORANGE, HTN, DIAGNOSED WITH DIABETES, HYPERTENSION, PSYCHIATRIC CONDITIONS MOTHER: ALIVE 61 YRS, HTN, DIAGNOSED WITH HYPERTENSION SIBLINGS: ALIVE 37 YRS, HEALTHY SISTER 1 BROTHER(S) , 1 SISTER(S) - HEALTHY. 3DAUGHTER(S) - HEALTHY. SOCIAL HISTORY GENERAL: TOBACCO USE ARE YOU A:FORMER SMOKER HOW LONG HAS IT BEEN SINCE YOU LAST SMOKED?1-3 MONTHS BMI CARE GOAL FOLLOW-UP ABOVE NORMAL BMI FOLLOW-UPDIETARY MANAGEMENT EDUCATION, GUIDANCE, AND COUNSELING ALCOHOL SCREENING DID YOU HAVE A DRINK CONTAINING ALCOHOL IN THE PAST YEAR?NO POINTS0 INTERPRETATIONNEGATIVE RECREATIONAL DRUG USE NO DRUGS. CAFFEINE 3-4/D NON-DIET. HIV / HEP-C SCREENING HIV TEST OFFERED TO PATIENT:YES DATE OFFERED:02/28/2017 TEST ACCEPTED:NO REASON:PATIENT DECLINED HEP-C TEST OFFERED TO PATIENT:NO CHEONDOISM [id number] NONE LANGUAGE LANGUAGES SPOKEN:CROATIAN LEARNING BARRIERS / SPECIAL NEEDS BARRIERS TO LEARNING?NO HEARING IMPAIRED?NO VISION IMPAIRED?YES :CORRECTIVE LENSES COGNITIVELY IMPAIRED?NO READINESS TO LEARN?YES LEARNING PREFERENCES?NO LEARNING CAPABILITIES PRESENT?YES EMOTIONAL BARRIERS?NO SPECIAL DEVICES?NO MEDICAL LIAISON NEEDED?NO DOMESTIC VIOLENCE DO YOU FEEL SAFE IN YOUR ENVIRONMENT?YES OCCUPATION: UNEMPLOYED. DIET: NORMAL. EXERCISE: NO REGULAR EXERCISE. MARITAL STATUS: . OTHERS AT HOME: SPOUSE, CHILDREN. PAIN CLINIC PFS, CLERGY, PUBLIC HEALTH REFERRALS HAS THE PATIENT BEEN EDUCATED REGARDING HIS/HER PLAN OF CARE?YES HAS THE PATIENT BEEN EDUCATED REGARDING PAIN, THE RISK FOR PAIN, THE IMPORTANCE OF EFFECTIVE PAIN MANAGEMENT, AND THE PAIN ASSESSMENT PROCESS?YES HOUSING: RENT A DUPLEX. ADVANCE DIRECTIVE ADVANCE DIRECTIVE DISCUSSED WITH PATIENT:YES 04/11/18 PT DOES NOT HAVE ANY ADVANCED DIRECTIVES AND SHE DECLINES INFORMATION ON HCP AT THIS TIME. AD 08/09/17 6729 REVIEWED. BVREVIEWED WITH PAITENT 12/19/17 1200 JSREVIEWED WITH PATIENT 01/19/18 1151 JS04/11/18 REVIEWED WITH PT. AD. HOSPITALIZATION/MAJOR DIAGNOSTIC PROCEDURE C SECTIONS REVIEW OF SYSTEMS REVIEWED BY: PROVIDER: CHARAN RONDON . CONSTITUTIONAL: ANY CHANGE IN YOUR MEDICAL CONDITION? NO . CHILLS NO . FEVER NO . INFECTION: DO YOU HAVE NEW INFECTIONS? NO . DO YOU HAVE HISTORY OF MRSA? NO . MUSCULOSKELETAL: ANY NEW PATTERNS OF PAIN OR NUMBNESS? YES, HAS BEEN HAVING A LOT OF PAIN IN BOTH KNEES WITH SWELLING AND REDNESS, FEELS HOT TO THE TOUCH, HAS BEEN GOING ON FOR APPROX. 1 MONTH TERRY WHEN SHE HAS BEEN ON HER FEET FOR AWHILE, ANKLES ARE ALSO SWOLLEN. SHE WAS STARTED ON FLUID PILL AND K+ BY DR. MEANS AND SHE AT THIS TIME IS LOOKING FOR A NEW PCP. THE SWELLING IS BETTER WITH THE FLUID PILL BUT SHE STILL HAS IT . GASTROENTEROLOGY: ANY NEW CHANGE IN BOWEL CONTROL? NO . GENITOURINARY: ANY NEW CHANGE IN BLADDER CONTROL? NO . IS THERE A CHANCE YOU COULD BE ? NO . HEMATOLOGY/LYMPH: DO YOU TAKE ANY BLOOD THINNERS? (FOR EXAMPLE- COUMADIN, PLAVIX, AGGRENOX, PLATEL, PRADAXA, OR XARELTO) NO . WHEN WAS YOUR LAST DOSE? DATE: TIME: . NEUROLOGY: HAVE YOU FALLEN IN THE PAST 12 MONTHS? NO . ANY NEW EXTREMITY NUMBNESS OR WEAKNESS? YES, ABOVE . CARDIOLOGY: DO YOU HAVE A PACEMAKER OR DEFIBRILLATOR? NO . RESPIRATORY: HAVE YOU BEEN SICK IN THE PAST WEEK? NO . FEVER NO . FLU LIKE SYMPTOMS? NO . COUGH NO . INTEGUMENTARY: DO YOU HAVE ANY RASHES OR OPEN SORES? NO . ALLERGIC/IMMUNO: ARE YOU ALLERGIC TO IV DYE? NO . ANY NEW ALLERGIES? NO . PSYCHIATRIC: DO YOU HAVE THOUGHTS OF HURTING YOURSELF OR SOMEONE ELSE? NO . ARE YOU ABUSED, NEGLECTED, OR IN AN UNSAFE ENVIRONMENT? NO . ENDOCRINOLOGY: ARE YOU DIABETIC? NO . OTHER: DO YOU NEED ANY PRESCRIPTIONS? NO . IF YES, PLEASE LIST: ____ . ANY NEW PROBLEMS WITH YOUR MEDICATIONS? NO . WHEN DID YOU LAST EAT? ____ . WHEN DID YOU LAST DRINK? ____ . WHAT DID YOU LAST DRINK? ____ . NAME OF PERSON DRIVING YOU HOME? ____ . DO YOU HAVE ANY OTHER QUESTIONS OR CONCERNS YES, SWELLING IN KNEES AND ANKLES WITH PAIN. PAIN RIGHT CHEST AND ARM X 2 DAYS. SORE TO TOUCH . VITAL SIGNS WT 174.8 LBS, HT 63 IN, BMI 30.96 INDEX, BP 146/93 MM HG, HR 106 /MIN, RR 16 /MIN, TEMP 97.7 F, OXYGEN SAT % 98%, SAFE IN ENV? (Y/N) Y, NA INITIALS TX 13:58, REVIEWED BY: NIRMAL. EXAMINATION GENERAL EXAMINATION: PSYCHALERT , ORIENTED X 3. LUNGS:CLEAR TO AUSCULTATION BILATERALLY. HEART:NORMAL S1S2, NO MURMURS, CLICK OR RUBS. MUSCULOSKELETAL:MUSCLE STRENGTH TESTING 5/5 BILATERAL UPPER EXTREMITIES. POINT TENDERNESS OVER BILATERAL SIJ REGIONS. TENDER POINTS IDENTIFIED ABOVE AND BELOW THE WAIST, BOTH SIDES OF THE BODY CONSISTANT WITH FIBROMYALGIA. TRIGGER POINTS AND TIGHT FIBROUS BANDS IDENTIFIED OVER BILATERAL TRAPEZIUS MUSCLES WELL ACROSS THE LUMBOSACRAL AXIS.. EXTREMITIES:NO EDEMA. ASSESSMENTS INTERVERTEBRAL DISC DISORDER WITH RADICULOPATHY OF LUMBOSACRAL REGION - M51.17 (PRIMARY) FIBROMYALGIA - M79.7 USE OF OPIATES FOR THERAPEUTIC PURPOSES - Z79.891 TREATMENT INTERVERTEBRAL DISC DISORDER WITH RADICULOPATHY OF LUMBOSACRAL REGION CONTINUE MOVANTIK TABLET, 25 MG, 1 TABLET IN THE MORNING, ORALLY, ONCE A DAY CONTINUE LACTULOSE SOLUTION, 10 GM/15ML, 15 ML, ORALLY, ONCE A DAY REFILL ZOHYDRO ER CAPSULE ER 12 HOUR ABUSE-DETERRENT, 40 MG, 1 CAPSULE, ORALLY, EVERY 12 HRS, 30 DAY(S), 60 CAPSULE, REFILLS 0 NOTES: ISTOP REGISTRY REVIEWED AND DEMONSTRATES COMPLLIANCE. (REF # ) BRINGS IN MEDICATIONS WHICH IS APPROPRIATE FOR WHAT WAS DISPENSED. RECENT URINE TOXICOLOGY REVIEWED. NO UNAUTHORIZED MEDICATIONS. NO ILLICIT SUBSTANCES AND PRESCRIBED MEDICATIONS WERE PRESENT. , RISKS AND BENEFITS OF NARCOTIC/OPIOD MEDICATIONS WERE REVIEWED WITH PATIENT - THIS INCLUDES BUT IS NOT LIMITED TO RISK OF DEPENDANCE/DEVELOPMENT OF ADDICTION, MOOD DISTURBANCE AND DEPRESSION, OSTEOPOROSIS, HORMONAL AND LABIDAL CHANGES, RESPIRATORY DEPRESSION AND . PATIENT IS ADVISED NOT TO DRIVE OR DRINK ALCOHOL WHILE ON THESE MEDICATIONS. PROCEDURE CODES FA211 ESTABILISHED PATIENT [facility] CHARGE DISPOSITION & COMMUNICATION FOLLOW UP 2 MONTHS ELECTRONICALLY SIGNED BY ALCON CLIFFORD ON 04/21/2018 AT 09:13 AM EST DISCLAIMER : THIS IS A VISIT SUMMARY EXTRACTED FROM THE [employer] CHART. IT IS NOT A COPY OF THE [employer] PROGRESS NOTE. MTDD
== END ==
LOC: M PAIN 14:45
PROVIDERS: ATTEND Nurse Practitioner Family
DX: M51.17 Intervertebral disc disorders with radiculopathy, lumbosacral region (principal); M79.7 Fibromyalgia; G89.29 Other chronic pain; F41.9 Anxiety disorder, unspecified; E03.9 Hypothyroidism, unspecified; I10 Essential (primary) hypertension; F43.10 Post-traumatic stress disorder, unspecified; E66.9 Obesity, unspecified; Z68.30 Body mass index [BMI] 30.0-30.9, adult; Z87.891 Personal history of nicotine dependence; Z88.8 Allergy status to other drugs, medicaments and biological substances; Z79.891 Long term (current) use of opiate analgesic; Z79.899 Other long term (current) drug therapy

== ENCOUNTER 2018-05-16 18:48 | Emergency (ER) | payer OTHER ==
[~2018-05-16] VITALS: Ht 162.6 cm; Wt 76.4 kg
[2018-05-16] MEDS ORDERED: AMLO10TA5 (18:55)
[2018-05-16] MEDS ORDERED: POTA1TAB21 (18:55)
[2018-05-16] MEDS ORDERED: FURO40TA2 (18:55)
[2018-05-16] MEDS ORDERED: NS 1,000 ML IV ONE (20:00)
[2018-05-16] MEDS ORDERED: hydrOXYzine 50 MG TAB PO ONE (20:45)
[2018-05-16] MEDS ORDERED: KETOROLAC 30 MG/ML VIAL (J1885) IV ONE (20:45)
[2018-05-16] MEDS ORDERED: METOCLOPRAMIDE INJ 10MG/2ML VIAL (J2765) IV ONE (20:45)
[2018-05-16 21:29] LABS: FREE THYROXINE INDEX 3.5 % (1.3-4.8); THYROID STIMULATING HORMONE 2.06 uIU/ML (0.358-3.740); THYROXINE (T4) 10.5 UG/DL (4.5-12.0)
[2018-05-16 21:36] VITALS: BP 123/76
== END 2018-05-16 21:37 | disposition home or self-care (01) ==
LOC: M ED 18:48
DX: R51 Headache (principal); I10 Essential (primary) hypertension; M79.7 Fibromyalgia; G25.81 Restless legs syndrome; F43.10 Post-traumatic stress disorder, unspecified; E04.1 Nontoxic single thyroid nodule; Z87.891 Personal history of nicotine dependence
CPT/HCPCS: 84436; 84443; 84479; 96374; 96375; 99284; J1885; J2765

== ENCOUNTER → 2018-05-24 | Outpatient (CLI) | payer OTHER ==
[~2018-05-24] MED LIST changes: +AMLO10TA5; +FURO40TA2; +POTA1TAB21
--- NOTE | 2018-05-25 05:18 | REP ---
Clinical: Thyroid lesion/mass. Technique: Real time sagastume scale and color evaluation using linear high frequency transducer. Comparison: None. Findings: Thyroid gland is diffusely heterogeneous and nodular. Isthmus measures 3.4 mm in width. Right lobe measures 4.3 x 1.8 x 2.0 cm and includes complex cystic nodule in the upper pole with multiple soft tissue components measuring 18 x 13 x 14 mm along with solid upper pole nodule measuring 12 x 7 x 11 mm and 15 x 8 x 10 mm along with smaller upper pole nodule measuring 4 x 3 x 4 mm. Left thyroid lobe measures 4.9 x 1.7 x 1.4 cm and includes 24 x 13 x 15 mm solid nodule at the mid pole and smaller solid nodules in the mid to lower pole measuring 7 x 3 x 3 mm and 4 x 3 x 4 mm. Impression: Solid and complex bilateral nodules are nonspecific in appearance. Electronically Signed by Keaton Corey MD 05/25/2018 05:10 A
== END ==
LOC: M RAD 14:33
PROVIDERS: ATTEND Physician Assistant
DX: D34 Benign neoplasm of thyroid gland (principal)

== ENCOUNTER → 2018-05-25 | Outpatient (REF) | payer OTHER ==
[2018-05-25 19:01] LABS: BASO % 0.5 % (0.0-1.0); EOS # 0.1 10^3/uL (0.0-0.50); EOS % 2.2 % (0.0-3.0); HEMATOCRIT 38.9 % (36.0-47.0); HEMOGLOBIN 13.8 g/dl (12.0-15.5); LYMPH # 1.8 10^3/uL (1.5-4.5); LYMPH % 30.4 % (24.0-44.0); MEAN CORPUSCULAR HEMOGLOBIN 29.9 pg (27.0-33.0); MEAN CORPUSCULAR HGB CONC 35.5 g/dl (32.0-36.5); MEAN CORPUSCULAR VOLUME 84.4 fl (80.0-96.0); MONO # 0.4 10^3/uL (0.0-0.8); MONO % 7.5 % (0.0-5.0); NEUTROPHILS # 3.5 10^3/uL (1.8-7.7); NEUTROPHILS % 59.1 % (36.0-66.0); PLATELET COUNT, AUTOMATED 368 10^3/uL (150-450); RED BLOOD COUNT 4.61 10^6/uL (4.00-5.40); WHITE BLOOD COUNT 5.9 10^3/uL (4.0-10.0)
[2018-05-25 19:28] LABS: ALBUMIN 4.1 GM/DL (3.2-5.2); ALT/SGPT 62 U/L (12-78); BILIRUBIN,TOTAL 0.5 MG/DL (0.2-1.0); BLOOD UREA NITROGEN 11 MG/DL (7-18); C REACTIVE PROTEIN QUANTITATIV < 0.30 MG/DL (0.00-0.30); CALCIUM LEVEL 8.9 MG/DL (8.5-10.1); CARBON DIOXIDE LEVEL 25 MEQ/L (21-32); CHLORIDE LEVEL 106 MEQ/L (98-107); CHOLESTEROL LEVEL 222 MG/DL (<200); CHOLESTEROL RISK RATIO 6.342 (<5); CREATININE FOR GFR 0.76 MG/DL (0.55-1.30); FREE T4 0.99 NG/DL (0.76-1.46); GLOMERULAR FILTRATION RATE > 60.0 (>58); GLUCOSE, FASTING 103 MG/DL (70-100); HDL CHOLESTEROL 35 MG/DL (>40); LDL CHOLESTEROL 147 MG/DL (<100); NON-HDL-C 187 MG/DL; SODIUM LEVEL 140 MEQ/L (136-145); TOTAL 25(OH) VITAMIN D 22.3 NG/ML (30.0-100.0); TOTAL PROTEIN 7.8 GM/DL (6.4-8.2); TRIGLYCERIDES LEVEL 199 MG/DL (<150)
[2018-05-25 19:40] LABS: HEMOGLOBIN A1c 4.6 %
[2018-05-25 19:58] LABS: ERYTHROCYTE SEDIMENTATION RATE 20 mm/hr (0-20)
== END ==
LOC: M LABDRAW1 17:46
PROVIDERS: ATTEND Physician Assistant
DX: Z13.29 Encounter for screening for other suspected endocrine disorder (principal)

== ENCOUNTER → 2018-06-04 | Outpatient (REF) | payer OTHER ==
[2018-06-04 15:01] LABS: INFLUENZA A AMPLIFICATION NEGATIVE (NEGATIVE); INFLUENZA B AMPLIFICATION NEGATIVE (NEGATIVE)
== END ==
LOC: M LAB REF 10:47
PROVIDERS: ATTEND Physician Assistant Medical
DX: J11.1 Influenza due to unidentified influenza virus with other respiratory manifestations (principal)

== ENCOUNTER → 2018-07-13 | Outpatient (CLI) | payer OTHER ==
[~2018-07-13] MED LIST changes: -DULO30CA PO; +DULO30CA9 PO; -LIDO1SOL7 MT; +LIDO1SOL8 MT; -VICO5TAB16 PO; +VICO5TAB17 PO
--- NOTE | 2018-07-29 23:58 | ECWPNPC ---
PATIENT NAME: DENISE ABAD : 1975 GENDER: FEMALE VISIT DATE: 07/13/2018 DISCHARGE DATE: 07/13/18 1230 VISIT LOCKED DATE TIME: PHYSICIAN: CHARAN FERRELL RESOURCE: CHARAN FERRELL REASON FOR APPOINTMENT 1. BACK HISTORY OF PRESENT ILLNESS HISTORY OF PRESENT ILLNESS: HERE FOR F/U OF CHRONIC GENERALIZED BODY PAIN.RATING PAIN VAS 8/10.DESCRIBES PAIN CONSTANT ,ACHING AND SORENESS. PAIN THE PATIENT DESCRIBES THE PAIN... FALL RISK SCREENING: SCREENING :NO FALLS REPORTED IN THE LAST YEAR CURRENT MEDICATIONS TAKING CYMBALTA 60 MG CAPSULE DELAYED RELEASE PARTICLES 1 CAPSULE ORALLY BID TAKING AMLODIPINE BESYLATE 10 MG TABLET 1 TABLET ORALLY ONCE A DAY TAKING FUROSEMIDE 40 MG TABLET 1 TABLET ORALLY ONCE A DAY TAKING POTASSIUM CHLORIDE CR 8 MEQ ORALLY DAILY TAKING LACTULOSE 10 GM/15ML SOLUTION 15 ML ORALLY ONCE A DAY TAKING MOVANTIK 25 MG TABLET 1 TABLET IN THE MORNING ORALLY ONCE A DAY TAKING ZOHYDRO ER 40 MG CAPSULE ER 12 HOUR ABUSE-DETERRENT 1 CAPSULE ORALLY EVERY 12 HRS TAKING PHENTERMINE HCL 37.5 MG TABLET 1 TABLET ORALLY ONCE A DAY NOT-TAKING CARAFATE 1 GM TABLET 1 TABLET ORALLY FOUR TIMES DAILY PRN NOT-TAKING ZONISAMIDE 100 MG CAPSULE 1 CAPSULE--TAKES 150 MGS ORALLY BID NOT-TAKING VITAMIN B2 100 MG ORALLY BID MEDICATION LIST REVIEWED AND RECONCILED WITH THE PATIENT PAST MEDICAL HISTORY L5-S1 CENTRAL DISC HERNIATION (BEING COVERED UNDER WORKMAN COMP) SCOLOSIS ANXIETY FIBROMYALGIA HYPOTHYROIDISM THYROID NODULE X7 HYPERTENSION PTSD 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 3DAUGHTER(S) - HEALTHY. SOCIAL HISTORY GENERAL: TOBACCO USE ARE YOU A:CURRENT SMOKER ARE YOU INTERESTED IN QUITTING?THINKING ABOUT QUITTING PREVIOUS QUIT ATTEMPTS?YES, WITHIN THE LAST 6 MONTHS. COUNSELED THE PATIENT ON SMOKING CESSATION, EDUCATION [id number]/25/[id number] HOW MANY CIGARETTES A DAY DO YOU SMOKE?5 OR LESS HOW OFTEN DO YOU SMOKE CIGARETTES?SOME DAYS, BUT NOT EVERY DAY PATIENT COUNSELED ON THE DANGERS OF TOBACCO USE AND URGED TO QUIT:07/13/2018 HIV / HEP-C SCREENING HIV TEST OFFERED TO PATIENT:YES DATE OFFERED:02/28/2017 TEST ACCEPTED:NO HEP-C TEST OFFERED TO PATIENT:NO REASON:PATIENT DECLINED OTHERS AT HOME: SPOUSE, CHILDREN. HOUSING: RENT A DUPLEX. DIET: NORMAL. LANGUAGE LANGUAGES SPOKEN:[place] DOMESTIC VIOLENCE DO YOU FEEL SAFE IN YOUR ENVIRONMENT?YES BMI CARE GOAL FOLLOW-UP ABOVE NORMAL BMI FOLLOW-UPDIETARY MANAGEMENT EDUCATION, GUIDANCE, AND COUNSELING RECREATIONAL DRUG USE DRUG USE?NO EXERCISE: NO REGULAR EXERCISE. LEARNING BARRIERS / SPECIAL NEEDS BARRIERS TO LEARNING?NO HEARING IMPAIRED?NO VISION IMPAIRED?YES COGNITIVELY IMPAIRED?NO :CORRECTIVE LENSES READINESS TO LEARN?YES LEARNING PREFERENCES?NO LEARNING CAPABILITIES PRESENT?YES EMOTIONAL BARRIERS?NO SPECIAL DEVICES?NO CUPOLA OPERATOR NEEDED?NO PAIN CLINIC PFS, CLERGY, PUBLIC HEALTH REFERRALS HAS THE PATIENT BEEN EDUCATED REGARDING HIS/HER PLAN OF CARE?YES HAS THE PATIENT BEEN EDUCATED REGARDING PAIN, THE RISK FOR PAIN, THE IMPORTANCE OF EFFECTIVE PAIN MANAGEMENT, AND THE PAIN ASSESSMENT PROCESS?YES LATEX QUESTIONNAIRE LATEX ALLERGY : HAVE YOU EVER DEVELOPED ANY TYPE OF REACTION AFTER HANDLING LATEX PRODUCTS SUCH RUBBER GLOVES, CONDOMS, DIAPHRAGMS, BALLOONS, SOCKS, OR UNDERWEAR?NO LATEX ALLERGY : HAVE YOU EVER DEVELOPED ANY TYPE OF REACTION DURING OR AFTER DENTAL APPOINTMENT, VAGINAL/RECTAL EXAMINATION, SURGICAL PROCEDURE, OR ANY OTHER EXPOSURE?NO LATEX RISK : HAVE YOU EVER HAD ANY DIFFICULTY BREATHING OR HIVES AFTER EATING OR HANDLING ANY FRUITS, OR VEGETABLES; SUCH KIWI, BANANAS, STONE FRUITS, OR CHESTNUTSNO LATEX RISK : DO YOU HAVE A PREVIOUS PERSONAL HISTORY OF MORE THAN NINE SURGERIES, SPINA BIFIDA, OR REPEATED CATHERTIZATIONS? NO LATEX RISK : ARE YOU FREQUENTLY EXPOSED TO LATEX PRODUCTS IN YOUR OCCUPATION?NO DATE ASKED : 07/13/2018 CAFFEINE 3-4/D NON-DIET. ADVANCE DIRECTIVE ADVANCE DIRECTIVE DISCUSSED WITH PATIENT:YES 07/13/18 PT DOES NOT HAVE ANY ADVANCED DIRECTIVES AND SHE DECLINES INFORMATION ON HCP AT THIS TIME. JS ISLAM [id number] NONE MARITAL STATUS: . ALCOHOL SCREENING DID YOU HAVE A DRINK CONTAINING ALCOHOL IN THE PAST YEAR?NO POINTS0 INTERPRETATIONNEGATIVE OCCUPATION: UNEMPLOYED. 08/09/17 0953 REVIEWED. BVREVIEWED WITH DINA 12/19/17 1200 JSREVIEWED WITH PATIENT 01/19/18 1151 JS04/11/18 REVIEWED WITH PT. RAJD WITH PATIENT 07/13/18 1146 JS. HOSPITALIZATION/MAJOR DIAGNOSTIC PROCEDURE C SECTIONS REVIEW OF SYSTEMS REVIEWED BY: PROVIDER: CHARAN RONDON . CONSTITUTIONAL: ANY CHANGE IN YOUR MEDICAL CONDITION? YES, STATES TILTED KNEE CAPS AND ARTHRITIS IN KNEES . CHILLS NO . FEVER NO . INFECTION: DO YOU HAVE NEW INFECTIONS? YES, HAD THE FLU ABOUT A MONTH AGO . DO YOU HAVE HISTORY OF MRSA? NO . MUSCULOSKELETAL: ANY NEW PATTERNS OF PAIN OR NUMBNESS? YES, STATES INCREASING PAIN TO LOWER BACK . GASTROENTEROLOGY: ANY NEW CHANGE IN BOWEL CONTROL? NO . GENITOURINARY: ANY NEW CHANGE IN BLADDER CONTROL? NO . IS THERE A CHANCE YOU COULD BE ? NO . HEMATOLOGY/LYMPH: DO YOU TAKE ANY BLOOD THINNERS? (FOR EXAMPLE- COUMADIN, PLAVIX, AGGRENOX, PLATEL, PRADAXA, OR XARELTO) NO . WHEN WAS YOUR LAST DOSE? DATE: TIME: . NEUROLOGY: HAVE YOU FALLEN IN THE PAST 12 MONTHS? NO . ANY NEW EXTREMITY NUMBNESS OR WEAKNESS? NO . CARDIOLOGY: DO YOU HAVE A PACEMAKER OR DEFIBRILLATOR? NO . RESPIRATORY: HAVE YOU BEEN SICK IN THE PAST WEEK? NO . FEVER NO . FLU LIKE SYMPTOMS? NO . COUGH NO . INTEGUMENTARY: DO YOU HAVE ANY RASHES OR OPEN SORES? YES, STATES SORES TO SCALP AND A CYST ON HER HEAD - FOLLOWS DERMATOLOGY . ALLERGIC/IMMUNO: ARE YOU ALLERGIC TO IV DYE? NO . ANY NEW ALLERGIES? NO . PSYCHIATRIC: DO YOU HAVE THOUGHTS OF HURTING YOURSELF OR SOMEONE ELSE? YES, STATES SOMETIMES HAS THOUGHTS OF HURTING HERSLF, IS RELATED TO THE PAIN AT TIMES, SEES A COUNSELOR EVERY COUPLE OF WEEKS. STATES NO PLAN TO HURT OR KILL HERSELF AT THIS TIME. STATES SHE LIKES TALKING WITH HER COUSELOR AND THAT IT HELPS. CHARAN FERRELL NOTIFIED . ARE YOU ABUSED, NEGLECTED, OR IN AN UNSAFE ENVIRONMENT? NO . ENDOCRINOLOGY: ARE YOU DIABETIC? NO . OTHER: DO YOU NEED ANY PRESCRIPTIONS? YES . IF YES, PLEASE LIST: ____ZOHYDRO ER, LACTULOSE . ANY NEW PROBLEMS WITH YOUR MEDICATIONS? YES, STATES THAT THE MEDICATIONS ARE NOT HELPING MUCH ANYMORE . WHEN DID YOU LAST EAT? ____ . WHEN DID YOU LAST DRINK? ____ . WHAT DID YOU LAST DRINK? ____ . NAME OF PERSON DRIVING YOU HOME? ____ . DO YOU HAVE ANY OTHER QUESTIONS OR CONCERNS NO . VITAL SIGNS WT 174.8 LBS, HT 63 IN, BMI 30.96 INDEX, BP 135/95 MM HG, HR 120 /MIN, RR 18 /MIN, TEMP 97.8 F, OXYGEN SAT % 100%, SAFE IN ENV? (Y/N) YES, NA INITIALS SC 11:40, REVIEWED BY: SPENSER. EXAMINATION GENERAL EXAMINATION: PSYCHALERT , ORIENTED X 3. LUNGS:CLEAR TO AUSCULTATION BILATERALLY. HEART:NORMAL S1S2, NO MURMURS, CLICK OR RUBS. MUSCULOSKELETAL:MUSCLE STRENGTH TESTING 5/5 BILATERAL UPPER EXTREMITIES. POINT TENDERNESS OVER BILATERAL SIJ REGIONS. TENDER POINTS IDENTIFIED ABOVE AND BELOW THE WAIST, BOTH SIDES OF THE BODY CONSISTANT WITH FIBROMYALGIA. TRIGGER POINTS AND TIGHT FIBROUS BANDS IDENTIFIED OVER BILATERAL TRAPEZIUS MUSCLES WELL ACROSS THE LUMBOSACRAL AXIS.. EXTREMITIES:NO EDEMA. ASSESSMENTS INTERVERTEBRAL DISC DISORDER WITH RADICULOPATHY OF LUMBOSACRAL REGION - M51.17 (PRIMARY) TREATMENT INTERVERTEBRAL DISC DISORDER WITH RADICULOPATHY OF LUMBOSACRAL REGION INCREASE ZOHYDRO ER CAPSULE ER 12 HOUR ABUSE-DETERRENT, 50 MG, 1 CAPSULE, ORALLY, EVERY 12 HRS MDD2, 30 DAY(S), 60, REFILLS 0 NOTES: ISTOP REGISTRY REVIEWED AND DEMONSTRATES COMPLLIANCE. BRINGS IN MEDICATIONS WHICH IS APPROPRIATE FOR WHAT WAS DISPENSED. RECENT URINE TOXICOLOGY REVIEWED. NO UNAUTHORIZED MEDICATIONS. NO ILLICIT SUBSTANCES AND PRESCRIBED MEDICATIONS WERE PRESENT. , RISKS AND BENEFITS OF NARCOTIC/OPIOD MEDICATIONS WERE REVIEWED WITH PATIENT - THIS INCLUDES BUT IS NOT LIMITED TO RISK OF DEPENDANCE/DEVELOPMENT OF ADDICTION, MOOD DISTURBANCE AND DEPRESSION, OSTEOPOROSIS, HORMONAL AND LABIDAL CHANGES, RESPIRATORY DEPRESSION AND . PATIENT IS ADVISED NOT TO DRIVE OR DRINK ALCOHOL WHILE ON THESE MEDICATIONS. PROCEDURE CODES FA211 ESTABILISHED PATIENT [facility] FACILITY CHARGE DISPOSITION & COMMUNICATION FOLLOW UP 2 MONTHS ELECTRONICALLY SIGNED BY ALCON CLIFFORD ON 07/29/2018 AT 08:40 AM EDT DISCLAIMER : THIS IS A VISIT SUMMARY EXTRACTED FROM THE [employer] CHART. IT IS NOT A COPY OF THE [employer] PROGRESS NOTE. MTDD
== END ==
LOC: M PAIN 11:30
PROVIDERS: ATTEND Nurse Practitioner Family
DX: M51.17 Intervertebral disc disorders with radiculopathy, lumbosacral region (principal); G89.29 Other chronic pain; Z86.59 Personal history of other mental and behavioral disorders; M79.7 Fibromyalgia; I10 Essential (primary) hypertension; M17.0 Bilateral primary osteoarthritis of knee; F17.210 Nicotine dependence, cigarettes, uncomplicated; Z88.8 Allergy status to other drugs, medicaments and biological substances; Z79.891 Long term (current) use of opiate analgesic; Z79.899 Other long term (current) drug therapy

== ENCOUNTER → 2018-09-12 | Outpatient (CLI) | payer OTHER ==
--- NOTE | 2018-09-27 02:10 | ECWPNPC ---
PATIENT NAME: DENISE ABAD : 1975 GENDER: FEMALE VISIT DATE: 09/12/2018 DISCHARGE DATE: 09/12/18 1125 VISIT LOCKED DATE TIME: PHYSICIAN: CHARAN FERRELL RESOURCE: CHARAN FERRELL REASON FOR APPOINTMENT 1. BACK HISTORY OF PRESENT ILLNESS HISTORY OF PRESENT ILLNESS: HERE FOR F/U OF CHRONIC GENERALIZED PAIN WITH HX OF FIBROMYALGIA.INCREASE IN ZOHYDRO TO 50MG BID HAS BEEN HELPFUL AT REDUCING PAIN AND KEEPING HER COMFORTABLE.WILL BE HAVING KNEE SURGERY WITH [facility] DR GAVIN.HE WILL PRESCRIBE USUAL TO HER HE DOES FOR ANY PROCEDURE FOR POST OP PAIN.WE WILL CONTINUE ZOHYDRO ER 50MG BID FOR CHRONIC PAIN. PAIN THE PATIENT DESCRIBES THE PAIN... FALL RISK SCREENING: SCREENING :NO FALLS REPORTED IN THE LAST YEAR CURRENT MEDICATIONS TAKING CYMBALTA 60 MG CAPSULE DELAYED RELEASE PARTICLES 1 CAPSULE ORALLY BID TAKING AMLODIPINE BESYLATE 10 MG TABLET 1 TABLET ORALLY ONCE A DAY TAKING FUROSEMIDE 40 MG TABLET 1 TABLET ORALLY ONCE A DAY TAKING POTASSIUM CHLORIDE CR 8 MEQ ORALLY DAILY TAKING LACTULOSE 10 GM/15ML SOLUTION 15 ML ORALLY ONCE A DAY TAKING MOVANTIK 25 MG TABLET 1 TABLET IN THE MORNING ORALLY ONCE A DAY TAKING PHENTERMINE HCL 37.5 MG TABLET 1 TABLET ORALLY ONCE A DAY TAKING CLINDAMYCIN PHOSPHATE 1 % GEL 1 APPLICATION TO AFFECTED AREA EXTERNALLY BID TO SCALP SORE LESIONS WHEN PRESENT TAKING ZOHYDRO ER 50 MG CAPSULE ER 12 HOUR ABUSE-DETERRENT 1 CAPSULE ORALLY EVERY 12 HRS MDD2 TAKING LOSARTAN POTASSIUM 25 MG TABLET 1 TABLET ORALLY ONCE A DAY TAKING TOPAMAX 25 MG TABLET 1 TABLET ORALLY ONCE A DAY NOT-TAKING CARAFATE 1 GM TABLET 1 TABLET ORALLY FOUR TIMES DAILY PRN NOT-TAKING ZONISAMIDE 100 MG CAPSULE 1 CAPSULE--TAKES 150 MGS ORALLY BID NOT-TAKING VITAMIN B2 100 MG ORALLY BID MEDICATION LIST REVIEWED AND RECONCILED WITH THE PATIENT PAST MEDICAL HISTORY L5-S1 CENTRAL DISC HERNIATION (BEING COVERED UNDER WORKMAN COMP) SCOLOSIS ANXIETY FIBROMYALGIA HYPOTHYROIDISM THYROID NODULE X7 HYPERTENSION PTSD 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 ALLERGIES BENADRYL: RESTLESS LEG - SIDE EFFECTS SURGICAL HISTORY CSECTION X 2 2001 TUBAL LIGATION WITH LEFT OVARY AND TUBE REMOVAL SECONDARY TO CYST 2004 BIOPSY OF TEMPORAL ARTERY FAMILY HISTORY FATHER: ALIVE 63 YRS, DM DUE TO AGENT ORANGE, HTN, DIAGNOSED WITH PSYCHIATRIC CONDITIONS, DIABETES, HYPERTENSION MOTHER: ALIVE 61 YRS, HTN, HYPERTENSION SIBLINGS: ALIVE 37 YRS, HEALTHY SISTER 1 BROTHER(S) , 1 SISTER(S) - HEALTHY. 3DAUGHTER(S) - HEALTHY. MOTHER HAD MELANOMA. DENIES FAMILY HX OF PANCREATIC CANCER. SOCIAL HISTORY GENERAL: TOBACCO USE ARE YOU A:CURRENT SMOKER ARE YOU INTERESTED IN QUITTING?THINKING ABOUT QUITTING PREVIOUS QUIT ATTEMPTS?YES, WITHIN THE LAST 6 MONTHS. COUNSELED THE PATIENT ON SMOKING CESSATION, EDUCATION [id number]/25/2019 HOW MANY CIGARETTES A DAY DO YOU SMOKE?5 OR LESS HOW OFTEN DO YOU SMOKE CIGARETTES?SOME DAYS, BUT NOT EVERY DAY PATIENT COUNSELED ON THE DANGERS OF TOBACCO USE AND URGED TO QUIT:07/13/2018 HIV / HEP-C SCREENING HIV TEST OFFERED TO PATIENT:YES DATE OFFERED:02/28/2017 TEST ACCEPTED:NO REASON:PATIENT DECLINED HEP-C TEST OFFERED TO PATIENT:NO OTHERS AT HOME: SPOUSE, CHILDREN. HOUSING: RENT A DUPLEX. DIET: NORMAL. LANGUAGE LANGUAGES SPOKEN:CANADIAN DOMESTIC VIOLENCE DO YOU FEEL SAFE IN YOUR ENVIRONMENT?YES BMI CARE GOAL FOLLOW-UP ABOVE NORMAL BMI FOLLOW-UPDIETARY MANAGEMENT EDUCATION, GUIDANCE, AND COUNSELING RECREATIONAL DRUG USE DRUG USE?NO EXERCISE: NO REGULAR EXERCISE. 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 ARCHITECT NEEDED?NO PAIN CLINIC PFS, CLERGY, PUBLIC HEALTH REFERRALS HAS THE PATIENT BEEN EDUCATED REGARDING HIS/HER PLAN OF CARE?YES HAS THE PATIENT BEEN EDUCATED REGARDING PAIN, THE RISK FOR PAIN, THE IMPORTANCE OF EFFECTIVE PAIN MANAGEMENT, AND THE PAIN ASSESSMENT PROCESS?YES LATEX QUESTIONNAIRE LATEX ALLERGY : HAVE YOU EVER DEVELOPED ANY TYPE OF REACTION AFTER HANDLING LATEX PRODUCTS SUCH RUBBER GLOVES, CONDOMS, DIAPHRAGMS, BALLOONS, SOCKS, OR UNDERWEAR?NO LATEX ALLERGY : HAVE YOU EVER DEVELOPED ANY TYPE OF REACTION DURING OR AFTER DENTAL APPOINTMENT, VAGINAL/RECTAL EXAMINATION, SURGICAL PROCEDURE, OR ANY OTHER EXPOSURE?NO LATEX RISK : HAVE YOU EVER HAD ANY DIFFICULTY BREATHING OR HIVES AFTER EATING OR HANDLING ANY FRUITS, OR VEGETABLES; SUCH KIWI, BANANAS, STONE FRUITS, OR CHESTNUTSNO LATEX RISK : DO YOU HAVE A PREVIOUS PERSONAL HISTORY OF MORE THAN NINE SURGERIES, SPINA BIFIDA, OR REPEATED CATHERTIZATIONS? NO LATEX RISK : ARE YOU FREQUENTLY EXPOSED TO LATEX PRODUCTS IN YOUR OCCUPATION?NO DATE ASKED : 07/13/2018 CAFFEINE 3-4/D NON-DIET. ADVANCE DIRECTIVE ADVANCE DIRECTIVE DISCUSSED WITH PATIENT:YES 09/12/18 PT DOES NOT HAVE ANY ADVANCED DIRECTIVES AND SHE DECLINES INFORMATION ON HCP AT THIS TIME. BV TEMPLE [id number] NONE MARITAL STATUS: . ALCOHOL SCREENING DID YOU HAVE A DRINK CONTAINING ALCOHOL IN THE PAST YEAR?NO POINTS0 INTERPRETATIONNEGATIVE OCCUPATION: UNEMPLOYED. 08/09/17 0953 REVIEWED. BVREVIEWED WITH PAITENT 12/19/17 1200 JSREVIEWED WITH PATIENT 01/19/18 1151 JS04/11/18 REVIEWED WITH PT. ADREVIEWED WITH PATIENT 07/13/18 1146 JS. HOSPITALIZATION/MAJOR DIAGNOSTIC PROCEDURE C SECTIONS REVIEW OF SYSTEMS REVIEWED BY: PROVIDER: CHARAN RONDON . CONSTITUTIONAL: ANY CHANGE IN YOUR MEDICAL CONDITION? YES, PT IS SEEING DR. RYAN TO HAVE RIGHT KNEE SURGERY DONE IN . . CHILLS NO . FEVER NO . INFECTION: DO YOU HAVE NEW INFECTIONS? NO . DO YOU HAVE HISTORY OF MRSA? NO . MUSCULOSKELETAL: ANY NEW PATTERNS OF PAIN OR NUMBNESS? NO . GASTROENTEROLOGY: ANY NEW CHANGE IN BOWEL CONTROL? NO . GENITOURINARY: ANY NEW CHANGE IN BLADDER CONTROL? NO . IS THERE A CHANCE YOU COULD BE ? NO . HEMATOLOGY/LYMPH: DO YOU TAKE ANY BLOOD THINNERS? (FOR EXAMPLE- COUMADIN, PLAVIX, AGGRENOX, PLATEL, PRADAXA, OR XARELTO) NO . WHEN WAS YOUR LAST DOSE? DATE: TIME: . NEUROLOGY: HAVE YOU FALLEN IN THE PAST 12 MONTHS? NO . ANY NEW EXTREMITY NUMBNESS OR WEAKNESS? NO . CARDIOLOGY: DO YOU HAVE A PACEMAKER OR DEFIBRILLATOR? NO . RESPIRATORY: HAVE YOU BEEN SICK IN THE PAST WEEK? NO . FEVER NO . FLU LIKE SYMPTOMS? NO . COUGH NO . INTEGUMENTARY: DO YOU HAVE ANY RASHES OR OPEN SORES? NO . ALLERGIC/IMMUNO: ARE YOU ALLERGIC TO IV DYE? NO . ANY NEW ALLERGIES? NO . PSYCHIATRIC: DO YOU HAVE THOUGHTS OF HURTING YOURSELF OR SOMEONE ELSE? NO . ARE YOU ABUSED, NEGLECTED, OR IN AN UNSAFE ENVIRONMENT? NO . ENDOCRINOLOGY: ARE YOU DIABETIC? NO . OTHER: DO YOU NEED ANY PRESCRIPTIONS? NO . IF YES, PLEASE LIST: ____ . ANY NEW PROBLEMS WITH YOUR MEDICATIONS? NO . WHEN DID YOU LAST EAT? ____ . WHEN DID YOU LAST DRINK? ____ . WHAT DID YOU LAST DRINK? ____ . NAME OF PERSON DRIVING YOU HOME? ____ . DO YOU HAVE ANY OTHER QUESTIONS OR CONCERNS NO . VITAL SIGNS WT 169 LBS, HT 63 IN, BMI 29.93 INDEX, BP 131/89 MM HG, HR 117 /MIN, RR 18 /MIN, TEMP 97.8 F, OXYGEN SAT % 96%, NA INITIALS AW 1042, REVIEWED BY: BV. EXAMINATION GENERAL EXAMINATION: PSYCHALERT , ORIENTED X 3. LUNGS:CLEAR TO AUSCULTATION BILATERALLY. HEART:NORMAL S1S2, NO MURMURS, CLICK OR RUBS. MUSCULOSKELETAL:MUSCLE STRENGTH TESTING 5/5 BILATERAL UPPER EXTREMITIES. POINT TENDERNESS OVER BILATERAL SIJ REGIONS. TENDER POINTS IDENTIFIED ABOVE AND BELOW THE WAIST, BOTH SIDES OF THE BODY CONSISTANT WITH FIBROMYALGIA. TRIGGER POINTS AND TIGHT FIBROUS BANDS IDENTIFIED OVER BILATERAL TRAPEZIUS MUSCLES WELL ACROSS THE LUMBOSACRAL AXIS.. EXTREMITIES:NO EDEMA. ASSESSMENTS INTERVERTEBRAL DISC DISORDER WITH RADICULOPATHY OF LUMBOSACRAL REGION - M51.17 (PRIMARY) TREATMENT INTERVERTEBRAL DISC DISORDER WITH RADICULOPATHY OF LUMBOSACRAL REGION REFILL ZOHYDRO ER CAPSULE ER 12 HOUR ABUSE-DETERRENT, 50 MG, 1 CAPSULE, ORALLY, EVERY 12 HRS MDD2, 30 DAY(S), 60, REFILLS 0 NOTES: ISTOP REGISTRY REVIEWED AND DEMONSTRATES COMPLLIANCE. BRINGS IN MEDICATIONS WHICH IS APPROPRIATE FOR WHAT WAS DISPENSED. RECENT URINE TOXICOLOGY REVIEWED. NO UNAUTHORIZED MEDICATIONS. NO ILLICIT SUBSTANCES AND PRESCRIBED MEDICATIONS WERE PRESENT. , RISKS AND BENEFITS OF NARCOTIC/OPIOD MEDICATIONS WERE REVIEWED WITH PATIENT - THIS INCLUDES BUT IS NOT LIMITED TO RISK OF DEPENDANCE/DEVELOPMENT OF ADDICTION, MOOD DISTURBANCE AND DEPRESSION, OSTEOPOROSIS, HORMONAL AND LABIDAL CHANGES, RESPIRATORY DEPRESSION AND . PATIENT IS ADVISED NOT TO DRIVE OR DRINK ALCOHOL WHILE ON THESE MEDICATIONS. PROCEDURE CODES FA211 ESTABILISHED PATIENT [facility] CHARGE DISPOSITION & COMMUNICATION FOLLOW UP 3 MONTHS (REASON: MED MGMNT) ELECTRONICALLY SIGNED BY ALCON CLIFFORD ON 09/26/2018 AT 02:04 PM EDT DISCLAIMER : THIS IS A VISIT SUMMARY EXTRACTED FROM THE [employer] CHART. IT IS NOT A COPY OF THE [employer] PROGRESS NOTE. MTDD
== END ==
LOC: M PAIN 10:45
PROVIDERS: ATTEND Nurse Practitioner Family
DX: M51.17 Intervertebral disc disorders with radiculopathy, lumbosacral region (principal); M79.7 Fibromyalgia; M41.9 Scoliosis, unspecified; F41.9 Anxiety disorder, unspecified; E03.9 Hypothyroidism, unspecified; E04.2 Nontoxic multinodular goiter; I10 Essential (primary) hypertension; F43.10 Post-traumatic stress disorder, unspecified; M17.0 Bilateral primary osteoarthritis of knee; F17.210 Nicotine dependence, cigarettes, uncomplicated; Z79.899 Other long term (current) drug therapy; Z88.8 Allergy status to other drugs, medicaments and biological substances

== ENCOUNTER → 2018-12-13 | Outpatient (CLI) | payer OTHER ==
[~2018-12-13] MED LIST changes: +AIMO70IN IM; +ALBU8.5H INH; +ATOR1TAB21 PO; +D 50CAP PO; +INDO-16 PO; -INDO25CA PO; +LOSA100T50 PO; +[UNRECOGNIZED DRUG - CODE] PO
--- NOTE | 2018-12-14 01:27 | REP ---
Clinical: Trauma. Technique: AP, lateral, bilateral oblique views left wrist . Findings: The carpal bones, surrounding osseous structures, soft tissues, and joint spaces are normal. There is no evidence for acute fracture or dislocation. No subcutaneous emphysema or radiodense foreign body. Impression: Normal wrist series. No acute fracture or dislocation Electronically Signed by Keaton Corey MD 12/14/2018 01:19 A
== END ==
LOC: M WUC 19:23
PROVIDERS: ATTEND Physician Assistant
DX: S60.212A Contusion of left wrist, initial encounter (principal); X58.XXXA Exposure to other specified factors, initial encounter; Y92.89 Other specified places as the place of occurrence of the external cause; Y93.9 Activity, unspecified; Y99.9 Unspecified external cause status

== ENCOUNTER → 2018-12-13 | Outpatient (CLI) | payer OTHER ==
[~2018-12-13] MED LIST changes: -AIMO70IN IM; -ALBU8.5H INH; -ATOR1TAB21 PO; -D 50CAP PO; -LOSA100T50 PO; -[UNRECOGNIZED DRUG - CODE] PO
--- NOTE | 2018-12-15 01:20 | ECWPNPC ---
PATIENT NAME: DENISE ABAD : 1975 GENDER: FEMALE VISIT DATE: 12/13/2018 DISCHARGE DATE: 12/13/18 1410 VISIT LOCKED DATE TIME: PHYSICIAN: DELONTE MARQUEZ RESOURCE: DELONTE MARQUEZ REASON FOR APPOINTMENT 1. BACK HISTORY OF PRESENT ILLNESS HISTORY OF PRESENT ILLNESS: PAIN THE PATIENT DESCRIBES THE PAIN... 43-YEAR-OLD FEMALE IN FOR CHRONIC PAIN FOLLOW-UP. SHE FEELS MEDICATIONS ARE WORKING WELL AND DENIES MED SIDE EFFECTS. SHE DOES ADMIT TO INCREASED PAIN RECENTLY BUT STATES THIS IS AND RESULTS OF A FALL ON HER RIGHT KNEE YESTERDAY. SHE WILL BE SEEN BY ORTHOPEDICS FOR ACL REPAIR ON DECEMBER 27. SHE RATES HER PAIN CURRENTLY AT A 9 OUT OF 10 AND DESCRIBES IT ACHING, STABBING, SORE, SHOOTING, AND TENDER. FALL RISK SCREENING: SCREENING :NO FALLS REPORTED IN THE LAST YEAR CURRENT MEDICATIONS TAKING CYMBALTA 60 MG CAPSULE DELAYED RELEASE PARTICLES 1 CAPSULE ORALLY BID TAKING LACTULOSE 10 GM/15ML SOLUTION 15 ML ORALLY ONCE A DAY TAKING PHENTERMINE HCL 37.5 MG TABLET 1 TABLET ORALLY ONCE A DAY TAKING LOSARTAN POTASSIUM 25 MG TABLET 1 TABLET ORALLY ONCE A DAY TAKING MOVANTIK 25 MG TABLET 1 TABLET IN THE MORNING ORALLY ONCE A DAY TAKING ZOHYDRO ER 50 MG CAPSULE ER 12 HOUR ABUSE-DETERRENT 1 CAPSULE ORALLY EVERY 12 HRS MDD2 TAKING VITAMIN D (CHOLECALCIFEROL) 1000 UNIT CAPSULE 1 CAPSULE ORALLY ONCE A DAY TAKING AIMOVIG 70 MG/ML SOLUTION AUTO-INJECTOR 1 ML SUBCUTANEOUS NOT-TAKING CARAFATE 1 GM TABLET 1 TABLET ORALLY FOUR TIMES DAILY PRN NOT-TAKING ZONISAMIDE 100 MG CAPSULE 1 CAPSULE--TAKES 150 MGS ORALLY BID NOT-TAKING VITAMIN B2 100 MG ORALLY BID NOT-TAKING FUROSEMIDE 40 MG TABLET 1 TABLET ORALLY ONCE A DAY NOT-TAKING POTASSIUM CHLORIDE CR 8 MEQ ORALLY DAILY DISCONTINUED AMLODIPINE BESYLATE 10 MG TABLET 1 TABLET ORALLY ONCE A DAY DISCONTINUED CLINDAMYCIN PHOSPHATE 1 % GEL 1 APPLICATION TO AFFECTED AREA EXTERNALLY BID TO SCALP SORE LESIONS WHEN PRESENT DISCONTINUED TOPAMAX 25 MG TABLET 1 TABLET ORALLY ONCE A DAY MEDICATION LIST REVIEWED AND RECONCILED WITH THE PATIENT PAST MEDICAL HISTORY L5-S1 CENTRAL DISC HERNIATION (BEING COVERED UNDER WORKMAN COMP) SCOLOSIS ANXIETY FIBROMYALGIA HYPOTHYROIDISM THYROID NODULE X7 HYPERTENSION PTSD 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 ALLERGIES BENADRYL: RESTLESS LEG - SIDE EFFECTS SURGICAL HISTORY CSECTION X 2 2000 TUBAL LIGATION WITH LEFT OVARY AND TUBE REMOVAL SECONDARY TO CYST 2004 BIOPSY OF TEMPORAL ARTERY FAMILY HISTORY FATHER: ALIVE 63 YRS, DM DUE TO AGENT ORANGE, HTN, DIAGNOSED WITH DIABETES, HYPERTENSION, UNSPECIFIED NONPSYCHOTIC MENTAL DISORDER FOLLOWING ORGANIC BRAIN DAMAGE MOTHER: ALIVE 61 YRS, HTN, HYPERTENSION SIBLINGS: ALIVE 37 YRS, HEALTHY SISTER 1 BROTHER(S) , 1 SISTER(S) - HEALTHY. 3DAUGHTER(S) - HEALTHY. MOTHER HAD MELANOMA. DENIES FAMILY HX OF PANCREATIC CANCER. SOCIAL HISTORY GENERAL: TOBACCO USE ARE YOU A:CURRENT SMOKER ARE YOU INTERESTED IN QUITTING?THINKING ABOUT QUITTING PREVIOUS QUIT ATTEMPTS?YES, WITHIN THE LAST 6 MONTHS. COUNSELED THE PATIENT ON SMOKING CESSATION, EDUCATION [id number]/25/2019 HOW MANY CIGARETTES A DAY DO YOU SMOKE?5 OR LESS HOW OFTEN DO YOU SMOKE CIGARETTES?SOME DAYS, BUT NOT EVERY DAY PATIENT COUNSELED ON THE DANGERS OF TOBACCO USE AND URGED TO QUIT:07/13/2018 HIV / HEP-C SCREENING HIV TEST OFFERED TO PATIENT:YES DATE OFFERED:02/28/2017 TEST ACCEPTED:NO HEP-C TEST OFFERED TO PATIENT:NO REASON:PATIENT DECLINED OTHERS AT HOME: SPOUSE, CHILDREN. HOUSING: RENT A DUPLEX. DIET: NORMAL. LANGUAGE LANGUAGES SPOKEN:KOREAN DOMESTIC VIOLENCE DO YOU FEEL SAFE IN YOUR ENVIRONMENT?YES BMI CARE GOAL FOLLOW-UP ABOVE NORMAL BMI FOLLOW-UPDIETARY MANAGEMENT EDUCATION, GUIDANCE, AND COUNSELING RECREATIONAL DRUG USE DRUG USE?NO EXERCISE: NO REGULAR EXERCISE. LEARNING BARRIERS / SPECIAL NEEDS BARRIERS TO LEARNING?NO HEARING IMPAIRED?NO VISION IMPAIRED?YES COGNITIVELY IMPAIRED?NO :CORRECTIVE LENSES READINESS TO LEARN?YES LEARNING PREFERENCES?NO LEARNING CAPABILITIES PRESENT?YES EMOTIONAL BARRIERS?NO SPECIAL DEVICES?NO ENTERPRISE MANAGER NEEDED?NO PAIN CLINIC PFS, CLERGY, PUBLIC HEALTH REFERRALS HAS THE PATIENT BEEN EDUCATED REGARDING HIS/HER PLAN OF CARE?YES HAS THE PATIENT BEEN EDUCATED REGARDING PAIN, THE RISK FOR PAIN, THE IMPORTANCE OF EFFECTIVE PAIN MANAGEMENT, AND THE PAIN ASSESSMENT PROCESS?YES LATEX QUESTIONNAIRE LATEX ALLERGY : HAVE YOU EVER DEVELOPED ANY TYPE OF REACTION AFTER HANDLING LATEX PRODUCTS SUCH RUBBER GLOVES, CONDOMS, DIAPHRAGMS, BALLOONS, SOCKS, OR UNDERWEAR?NO LATEX ALLERGY : HAVE YOU EVER DEVELOPED ANY TYPE OF REACTION DURING OR AFTER DENTAL APPOINTMENT, VAGINAL/RECTAL EXAMINATION, SURGICAL PROCEDURE, OR ANY OTHER EXPOSURE?NO DATE ASKED : 07/13/2018 LATEX RISK : HAVE YOU EVER HAD ANY DIFFICULTY BREATHING OR HIVES AFTER EATING OR HANDLING ANY FRUITS, OR VEGETABLES; SUCH KIWI, BANANAS, STONE FRUITS, OR CHESTNUTSNO LATEX RISK : DO YOU HAVE A PREVIOUS PERSONAL HISTORY OF MORE THAN NINE SURGERIES, SPINA BIFIDA, OR REPEATED CATHERIZATIONS? NO LATEX RISK : ARE YOU FREQUENTLY EXPOSED TO LATEX PRODUCTS IN YOUR OCCUPATION?NO CAFFEINE 3-4/D NON-DIET. ADVANCE DIRECTIVE ADVANCE DIRECTIVE DISCUSSED WITH PATIENT:YES PT DOES NOT HAVE ANY ADVANCED DIRECTIVES AND SHE DECLINES INFORMATION ON HCP AT THIS TIME. NONDENOMINATIONAL [id number] NONE MARITAL STATUS: . ALCOHOL SCREENING DID YOU HAVE A DRINK CONTAINING ALCOHOL IN THE PAST YEAR?NO POINTS0 INTERPRETATIONNEGATIVE OCCUPATION: UNEMPLOYED. 08/09/17 0953 REVIEWED. BVREVIEWED WITH PAITENT 12/19/17 1200 JSREVIEWED WITH PATIENT 01/19/18 1151 JS04/11/18 REVIEWED WITH PT. ADREVIEWED WITH PATIENT 07/13/18 1146 JS. HOSPITALIZATION/MAJOR DIAGNOSTIC PROCEDURE C SECTIONS REVIEW OF SYSTEMS REVIEWED BY: PROVIDER: VASHTI MARQUEZ SERVICE TRANSFORMER REPAIR SUPERVISOR-Jose Angel . CONSTITUTIONAL: ANY CHANGE IN YOUR MEDICAL CONDITION? NO . CHILLS NO . FEVER NO . INFECTION: DO YOU HAVE NEW INFECTIONS? NO . DO YOU HAVE HISTORY OF MRSA? NOT SURE . MUSCULOSKELETAL: ANY NEW PATTERNS OF PAIN OR NUMBNESS? YES, PT FELL YESTERDAY LANDING ON KNEES, BACK PAIN WRIST PAIN . GASTROENTEROLOGY: ANY NEW CHANGE IN BOWEL CONTROL? NO . GENITOURINARY: ANY NEW CHANGE IN BLADDER CONTROL? NO . IS THERE A CHANCE YOU COULD BE ? NO . HEMATOLOGY/LYMPH: DO YOU TAKE ANY BLOOD THINNERS? (FOR EXAMPLE- COUMADIN, PLAVIX, AGGRENOX, PLATEL, PRADAXA, OR XARELTO) NO . WHEN WAS YOUR LAST DOSE? DATE: TIME: . NEUROLOGY: HAVE YOU FALLEN IN THE PAST 12 MONTHS? YES, FELL YESTERDAY TRIPPED OVER CAT LANDING ON KNEES, PT DENIES SEEKING TX . ANY NEW EXTREMITY NUMBNESS OR WEAKNESS? YES, WRISTS AND LEGS . CARDIOLOGY: DO YOU HAVE A PACEMAKER OR DEFIBRILLATOR? NO . RESPIRATORY: HAVE YOU BEEN SICK IN THE PAST WEEK? NO . FEVER NO . FLU LIKE SYMPTOMS? NO . COUGH NO . INTEGUMENTARY: DO YOU HAVE ANY RASHES OR OPEN SORES? YES, PAINFUL LUMPS ON HEAD, PCP AWARE, PT WAS SENT TO DERMATOLOGY, BUT THEY FORGOT ABOUT IT . ALLERGIC/IMMUNO: ARE YOU ALLERGIC TO IV DYE? NO . ANY NEW ALLERGIES? NO . PSYCHIATRIC: DO YOU HAVE THOUGHTS OF HURTING YOURSELF OR SOMEONE ELSE? NO . ARE YOU ABUSED, NEGLECTED, OR IN AN UNSAFE ENVIRONMENT? NO . ENDOCRINOLOGY: ARE YOU DIABETIC? NO . OTHER: DO YOU NEED ANY PRESCRIPTIONS? YES, LACTULOSE, MOVANTIK . IF YES, PLEASE LIST: ____ . ANY NEW PROBLEMS WITH YOUR MEDICATIONS? NO . WHEN DID YOU LAST EAT? ____ . WHEN DID YOU LAST DRINK? ____ . WHAT DID YOU LAST DRINK? ____ . NAME OF PERSON DRIVING YOU HOME? ____ . DO YOU HAVE ANY OTHER QUESTIONS OR CONCERNS YES, SPEAK ABOUT MEDS FOR UPCOMING SURGERY-KNEE SURGERY . VITAL SIGNS WT 164.0 LBS, HT 63 IN, BMI 29.05 INDEX, BP 161/98 MM HG, HR 118 /MIN, RR 18 /MIN, TEMP 97.1 F, OXYGEN SAT % 98%, NA INITIALS AW 1311, REVIEWED BY: JAGUAR. EXAMINATION GENERAL EXAMINATION: GENERALNO ACUTE DISTRESS, WELL NOURISHED AND HYDRATED. PSYCHAPPROPRIATE MOOD AND AFFECT . LUNGS:CLEAR TO AUSCULTATION BILATERALLY, NO WHEEZES, RHONCHI, RALES. HEART:NO MURMURS, REGULAR RATE AND RHYTHM. 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 SHE DID SHOW THIS DEICER INSPECTOR PNEUMATIC SOME LUMPS LOCATED BEHIND HER LEFT EAR AND LEFT POSTERIOR NECK AND SHE WAS ENCOURAGED TO DISCUSS THIS WITH HER PCP FOR POTENTIAL IMAGING. GIVEN PRESENTING SYMPTOMS AND RESULTS PHYSICAL EXAMINATION RECOMMENDED CONTINUATION OF CURRENT MEDICATION REGIMEN WITH FOLLOW-UP IN 3 MONTHS. PATIENT HAS EXPRESSED UNDERSTANDING OF AND WAS IN AGREEMENT WITH TREATMENT PLAN. GIVEN TIME TO ASK QUESTIONS AND EXPRESS CONCERNS., ISTOP REGISTRY REVIEWED AND DEMONSTRATES COMPLLIANCE. (REF # [id number] ) BRINGS IN MEDICATIONS WHICH IS APPROPRIATE FOR WHAT WAS DISPENSED. RECENT URINE TOXICOLOGY REVIEWED. NO UNAUTHORIZED MEDICATIONS. NO ILLICIT SUBSTANCES AND PRESCRIBED MEDICATIONS WERE PRESENT. INTERVERTEBRAL DISC DISORDER WITH RADICULOPATHY OF LUMBOSACRAL REGION REFILL LACTULOSE SOLUTION, 10 GM/15ML, 15 ML, ORALLY, ONCE A DAY, 450 ML, REFILLS 2 REFILL MOVANTIK TABLET, 25 MG, 1 TABLET IN THE MORNING, ORALLY, ONCE A DAY, 30 DAYS, 30 TABLET, REFILLS 1 PROCEDURE CODES FA211 ESTABILISHED PATIENT [facility] CHARGE DISPOSITION & COMMUNICATION FOLLOW UP 3 MONTHS (REASON: CHRONIC PAIN ) ELECTRONICALLY SIGNED BY ALCON PATTON ON 12/14/2018 AT 09:08 AM EDT DISCLAIMER : THIS IS A VISIT SUMMARY EXTRACT[facility] FROM THE [facility]. IT IS NOT A COPY OF THE [facility] PROGRESS NOTE. SARA
== END ==
LOC: M PAIN 13:00
PROVIDERS: ATTEND Family Medicine
DX: M51.16 Intervertebral disc disorders with radiculopathy, lumbar region (principal); M51.17 Intervertebral disc disorders with radiculopathy, lumbosacral region; G89.29 Other chronic pain; Z86.59 Personal history of other mental and behavioral disorders; M79.7 Fibromyalgia; I10 Essential (primary) hypertension; M17.0 Bilateral primary osteoarthritis of knee; F17.210 Nicotine dependence, cigarettes, uncomplicated; Z88.8 Allergy status to other drugs, medicaments and biological substances; Z79.899 Other long term (current) drug therapy

== ENCOUNTER 2018-12-27 05:53 | Day surgery (SDC) | payer OTHER ==
[~2018-12-27] VITALS: Ht 160 cm; Wt 74.8 kg
[~2018-12-27 05:53] MED LIST changes: +AIMO70IN IM; +ALBU8.5H INH; +ATOR1TAB21 PO; +D 50CAP PO; +LOSA100T50 PO; +[UNRECOGNIZED DRUG - CODE] PO
[2018-12-27] MEDS ORDERED: ROPIvacaine 0.5% 30 ML INJECTION (J2795 PER 1MG) ONE (05:54)
[2018-12-27] MEDS ORDERED: dexameTHASONE 10 MG/1 ML VIAL PRES.FREE (J1100) ONE (05:54)
[2018-12-27] MEDS ORDERED: LIDOCAINE 1% MDV 20ML VIAL ONE (05:54)
[2018-12-27] MEDS ORDERED: LIDOCAINE 1% MDV 20ML VIAL SQ PRN (06:00)
[2018-12-27] MEDS ORDERED: ceFAZolin 2 GM/D5W 50 ML IV BAG (J0690 PER 500MG) As Ordered ONE (06:14)
[2018-12-27] MEDS ORDERED: MIDAZOLAM INJ 2 MG/2 ML VIAL (J2250) As Ordered ONE ×2 (06:42→07:32)
[2018-12-27] MEDS ORDERED: fentaNYL 100 MCG/2 ML INJECTION (J3010) As Ordered ONE ×4 (06:42→09:58)
[2018-12-27] MEDS ORDERED: LR 1,000 ML IV ONE (07:00)
[2018-12-27] MEDS ORDERED: PROPOFOL 200 MG/20 ML VIAL As Ordered ONE (07:05)
[2018-12-27] MEDS ORDERED: dexameTHASONE 4 MG/ML 1ML VIAL (J1100) As Ordered ONE ×2 (07:05→07:56)
[2018-12-27] MEDS ORDERED: PROPOFOL 500 MG/50 ML VIAL As Ordered ONE (07:05)
[2018-12-27] MEDS ORDERED: ONDANSETRON 4MG/2ML VIAL (J2405) As Ordered ONE (07:05)
[2018-12-27] MEDS ORDERED: BUPIVACAINE HCL 0.5% 30 ML VIAL As Ordered ONE (07:14)
[2018-12-27] MEDS ORDERED: BUPIVACAINE HCL 0.5% 10 ML VIAL As Ordered ONE (07:15)
[2018-12-27] MEDS ORDERED: LIDOCAINE 2% INJ 100 MG/5 ML SDV (FOR ANES.) As Ordered ONE (07:34)
[2018-12-27] MEDS ORDERED: ACETAMINOPHEN 1000MG 100ML IV BTL (OFIRMEV) (J0131 PER 10MG) As Ordered ONE (07:57)
[2018-12-27] MEDS ORDERED: fentaNYL 100 MCG/2 ML INJECTION (J3010) IV ONE (08:30)
[2018-12-27] MEDS ORDERED: MIDAZOLAM INJ 2 MG/2 ML VIAL (J2250) IV ONE (08:30)
[2018-12-27] MEDS ORDERED: HYDROMORPHONE HCL 0.5 MG/ 0.5 ML SYRINGE (J1170 PER 1) As Ordered ONE ×2 (10:23→10:34)
[2018-12-27] MEDS ORDERED: PERCOCET 5MG/325MG TAB As Ordered ONE (10:24)
[2018-12-27] MEDS ORDERED: ONDANSETRON 4MG/2ML VIAL (J2405) IV PRN (11:00)
[2018-12-27] MEDS ORDERED: fentaNYL 100 MCG/2 ML INJECTION (J3010) IV PRN (11:00)
[2018-12-27] MEDS ORDERED: LR 1,000 ML IV SCH ×2 (11:00)
[2018-12-27] MEDS ORDERED: HYDROMORPHONE HCL 0.5 MG/ 0.5 ML SYRINGE (J1170 PER 1) IV PRN (11:00)
[2018-12-27] MEDS ORDERED: PERCOCET 5MG/325MG TAB PO PRN (11:00)
[2018-12-27 11:43] VITALS: BP 138/82
--- NOTE | 2018-12-27 15:15 | RO ---
DATE OF PROCEDURE: 12/27/2018 PREOPERATIVE DIAGNOSES: 1. Right knee anterior cruciate ligament tear. 2. Right knee possible meniscus tear. POSTOPERATIVE DIAGNOSES: 1. Right knee anterior cruciate ligament tear. 2. Right knee chondromalacia. PROCEDURE: 1. Right knee examination under anesthesia. 2. Right knee arthroscopic assisted anterior cruciate ligament reconstruction with allograft. SURGEON: Dr. Galo Lazcano. CIVIL TRANSPORTATION ENGINEER: MR. Cy Salgado PA-C. ANESTHESIA: Preoperative nerve block with general IV FLUIDS: Lactated Ringer's. ESTIMATE BLOOD LOSS: 5 mL. IMPLANTS: Arthrex 7 x 23 peak interference screw in the femur and Arthrex 10 x 28 mm peak interference screw in the tibia. CLOSURE: Nylon. DESCRIPTION OF PROCEDURE: Patient identified in the preoperative holding area. The right leg marked by myself. She had an abductor canal block by anesthesia. She was brought to the operating room, placed supine on a well-padded operating room (OR) table. General anesthesia was induced. Examination under anesthesia revealed a grade 1 plus Edna with a soft endpoint. There was a pivot glide. In the left knee, she had a grade 1A Edna with a negative pivot shift or pivot glide. She was stable to varus and valgus stress. Negative posterior drawer. No patellar instability. She has full range of motion. A well-padded tourniquet was applied to the right side. Sandbag taped to the end of the OR table and the post secured to the side of the OR table. The left leg had a Venodyne boots for deep venous thrombosis (DVT) prophylaxis. The right leg was then prepped and draped in normal sterile fashion with Chloraprep all the way from the toes up to the tourniquet. Prior to incision, time-out was performed per hospital protocol. She received appropriate IV antibiotics within 1 hour of incision. Cy Salgado was present for the entire procedure and participated all essential portions of the procedure. This included patient positioning and draping, holding the arthroscope, preparing the graft on the back table, holding the knee hyper-flexed to facilitate drilling an anteromedial portal, assisting with graft passage and hardware placement and wound closure and applying dressing and brace. The right leg was exsanguinated an Esmarch bandage and the tourniquet inflated to 250 mmHg. The knee was insufflated with lactated Ringer's. Standard modified anterolateral portal made with 11-blade just off the patellar tendon. 30 degrees arthroscope was introduced into the joint and there was grade 1 chondromalacia in the patella, trochlea was in good condition. There are no loose bodies. Medial compartment was entered where there was a fissure in the medial femoral condyle but no significant softening. No displaced flaps. There did not appear to be any tears in the medial meniscus. The anterior cruciate ligament (ACL) was visible. The fibers were present, however, it appeared lax. The leg was brought to the [id number] position. No tears in the lateral meniscus. No significant chondromalacia. An anteromedial portal was created under direct visualization and localized with a spinal needle to give the appropriate angle for drilling an anteromedial (AM) portal. An 11 blade was used to create that portal under direct visualization to avoid damage to the medial meniscus. On probing the medial meniscus there were no tears. On probing the medial femoral condyle, there are no unstable flaps of articular cartilage and no chondroplasty necessary. Lateral compartment was entered again. Lateral meniscus probed, no tearing. I then probed the ACL in various degrees of knee flexion and it was significantly lax, which corresponded to her MRI. Although there was laxity on her examination under anesthesia, it was not profound but there was very impressive laxity on probing the ligament with the probe. There appeared to have been an injury at some point and then it had scarred in placed under poor tension. This appeared to be more of a proximal injury. Given that she had preoperative symptoms of instability and given that [id number] difference on her examination under anesthesia and given the significant laxity on probing, I felt that an ACL reconstruction was still indicated. Shaver and cautery was then used to remove the remaining ACL fibers. The allograft, which was an Achilles allograft precut to a size 10 diameter bone block was opened and thawed on the back table. This was prepared by both myself and my assistant construction superintendent. It was prepared to a 22 mm in length bulleted at the tip and two drill holes placed the guide with a drill bit. #2 FiberWire placed through both drill holes. My assistant professor of marine biology performed the whipstitch with a #2-0 FiberWire in a Krackow fashion. The tendon edges were trimmed of any frayed tissue. This was then sized to fit easily through a 10 sizer. This was secured on the back table in a moist sponge. An angled curette was used to brissa the appropriate position for a single bundle ACL reconstruction on the femur. An 8 mm uurm-luz-awl guide was then placed through the anteromedial portal. The knee was hyper-flexed and the beef pin was advanced out the lateral femoral condyle. A 10 mm low profile acorn reamer was then used over the guidewire to drill a socket 25 mm in depth. All bony debris was removed with the shaver. PDS passing suture was placed and withdrawn with the beef pin and secured for later graft passage. Inspection of the femoral tunnel revealed that there was a 2 mm back wall and this was just off the articular surface with the knee in 90 degrees of flexion. Next, an incision was made over the anteromedial tibia in the area of the pes with a 15 blade and dissection down to the periosteum with Metzenbaum scissors. A few small veins were quickly cauterized but electrocautery was minimized during this case due to some none-removal facial piercings and we had taken extra care to make sure that the grounding pad was well adhered to her body during the positioning process. The tibial drill guide was then set to 55 degrees and a guidepin was drilled entering the tibia through the [place] ACL attachments about 9 mm posterior to the intrameniscal ligament and just medial to the midline. Pituitary rongeur was used to remove soft tissue at the aperture to help prevent a cyclops lesion. The CrabClaw was then used to retrieve the PDS suture through the tibial tunnel and then the graft was passed into the joint. The bone block was docked into the femoral tunnel and a nitinol wire was placed. Seven mm tap was used custodial. A 7 x 23 mm peak interference screw was then placed over the guidewire. The bone block was fully seated and the knee was hyper-flexed. The screw was inserted over the nitinol wire and this had fantastic fixation. The knee was then brought to full extension with distal traction on the graft and there was no superior notch impingement. The leg was brought to full extension up on the OR table. Large sterile bump placed behind the femoral condyles and a nitinol wire placed between the soft tissue portion of the graft and the tibial tunnel. I applied distal traction to the FiberWire sutures as my assistant construction superintendent applied a posterior drawer to the proximal tibia and a 10 x 28 mm peak interference screw was placed with the nitinol wire. This had excellent fixation. Fixation was so good, I did not feel backup was required. She now had a grade 1A Edna with a definite improvement from her preoperative exam under anesthesia. The knee was then ranged from 0-120 degrees. The Edna's repeated and there is no change. The arthroscope was placed back into the joint and I probed the graft and this was under much better tension than preop. This superior pouch and gutters were inspected. There was no bony debris. The knee was irrigated and drained. Excess graft from the tibial incision was cut and discarded. Incisions were then closed with #2-0 Vicryl running nylon. Portals closed with nylon. We injected 10 mL of 0.5% Marcaine without epinephrine for extra local anesthetic. Tourniquet was let down. Bulky sterile dressing applied. Hinged knee brace locked in extension was then placed. All counts correct times two. Complications none. She was extubated and transferred to postanesthesia care unit (PACU) in stable condition. She will be weightbearing as tolerated full-dose aspirin for DVT prophylaxis.
[2018-12-28] MEDS ORDERED: ASPIRIN 325 MG TAB PO SCH (09:00)
== END 2018-12-27 11:40 | disposition home or self-care (01) ==
LOC: M SDC 05:53
PROVIDERS: ATTEND Orthopaedic Surgery
DX: S83.31XA Tear of articular cartilage of right knee, current, initial encounter (principal); M94.261 Chondromalacia, right knee; X58.XXXA Exposure to other specified factors, initial encounter; Y92.89 Other specified places as the place of occurrence of the external cause; Y93.9 Activity, unspecified; Y99.9 Unspecified external cause status; I10 Essential (primary) hypertension; E78.5 Hyperlipidemia, unspecified; E04.1 Nontoxic single thyroid nodule; M79.7 Fibromyalgia; F41.9 Anxiety disorder, unspecified; F32.9 Major depressive disorder, single episode, unspecified; Z79.899 Other long term (current) drug therapy; F17.218 Nicotine dependence, cigarettes, with other nicotine-induced disorders; F43.10 Post-traumatic stress disorder, unspecified; J45.909 Unspecified asthma, uncomplicated; G25.81 Restless legs syndrome; Z88.8 Allergy status to other drugs, medicaments and biological substances
CPT/HCPCS: 29888; 64425; C1713; C1762; J0131; J1100; J2250; J2405; J2795; J3010

== ENCOUNTER → 2019-01-16 | Outpatient (CLI) | payer OTHER ==
--- NOTE | 2019-01-16 13:57 | REP ---
MRI lumbar spine: 01/16/2019. Indication: Low back pain. Comparison: 01/13/2018. Technique: Multiplanar short and long TR sequences of the lumbar spine were performed without IV Gadolinium. Findings: Very minimal retrolisthesis of L5 on S1 is present. No worrisome marrow signal is noted. The visualized cord is unremarkable. Incidental fatty filum terminalis is noted. 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 No significant paraspinal soft tissue abnormalities are present. L1/L2, L2/L3 and L3/L4: There is no focal disc herniation or significant spinal canal / neural foraminal compromise. L4/L5: Mild diffuse disc bulge is present without significant spinal canal / neural foraminal narrowing. L5/S1: Diffuse disc bulge is present without significant spinal canal / neural foraminal narrowing. Impression: Degenerative sequelae of L4/L5 and L5/S1 without significant spinal canal or neural foraminal narrowing as discussed. Incidental fatty filum terminalis without cord tethering. Electronically Signed by Tyrone Zhang DO 01/16/2019 01:48 P
== END ==
LOC: M RAD 12:41
PROVIDERS: ATTEND Physician Assistant Medical
DX: M51.26 Other intervertebral disc displacement, lumbar region (principal); R20.2 Paresthesia of skin

== ENCOUNTER 2019-01-17 11:39 | Outpatient (RCR) | payer OTHER | END 2019-01-18 | LOC: M PT 11:39 | PROVIDERS: ATTEND Orthopaedic Surgery | DX: Z47.89 Encounter for other orthopedic aftercare (principal); S83.511D Sprain of anterior cruciate ligament of right knee, subsequent encounter; X58.XXXD Exposure to other specified factors, subsequent encounter; Y92.9 Unspecified place or not applicable; Y93.9 Activity, unspecified; Y99.9 Unspecified external cause status ==

== ENCOUNTER 2019-01-26 10:59 | Outpatient (RCR) | payer OTHER | END 2019-02-17 | LOC: M PT 10:59 | PROVIDERS: ATTEND Orthopaedic Surgery | DX: Z47.89 Encounter for other orthopedic aftercare (principal); S83.511D Sprain of anterior cruciate ligament of right knee, subsequent encounter; X58.XXXD Exposure to other specified factors, subsequent encounter; Y92.9 Unspecified place or not applicable; Y93.9 Activity, unspecified; Y99.9 Unspecified external cause status ==

== ENCOUNTER → 2019-04-12 | Outpatient (CLI) | payer OTHER ==
[~2019-04-12] MED LIST changes: +ZONI100C17 PO; -ZONI100C2 PO; +ZONI25CA13 PO; -ZONI25CA2 PO
--- NOTE | 2019-04-17 01:41 | ECWPNPC ---
PATIENT NAME: DENISE ABAD : 1975 GENDER: FEMALE VISIT DATE: 04/12/2019 DISCHARGE DATE: 04/12/19 1421 VISIT LOCKED DATE TIME: PHYSICIAN: DELONTE MARQUEZ RESOURCE: DELONTE MARQUEZ REASON FOR APPOINTMENT 1. BACK HISTORY OF PRESENT ILLNESS HISTORY OF PRESENT ILLNESS: PAIN THE PATIENT DESCRIBES THE PAIN... 43-YEAR-OLD FEMALE IN FOR CHRONIC PAIN FOLLOW-UP. SHE RATES HER PAIN CURRENTLY AT AN 8 OUT OF 10 AND DESCRIBES IT ACHING, SHARP, STABBING, SORE, SHOOTING, AND TENDER. SHE FEELS HER MEDICATIONS ARE WORKING BUT DOES ADMIT THAT SOME DAYS ARE BETTER THAN OTHERS ESPECIALLY GIVEN THE WINTER WEATHER RECENTLY. SHE DENIES MED SIDE EFFECTS AT THIS TIME. FALL RISK SCREENING: SCREENING :NO FALLS REPORTED IN THE LAST YEAR CURRENT MEDICATIONS TAKING CARAFATE 1 GM TABLET 1 TABLET ORALLY FOUR TIMES DAILY PRN TAKING [place] POTASSIUM 25 MG TABLET 1 TABLET ORALLY ONCE A DAY TAKING VITAMIN D (CHOLECALCIFEROL) 1000 UNIT CAPSULE 1 CAPSULE ORALLY ONCE A DAY TAKING AIMOVIG 70 MG/ML SOLUTION AUTO-INJECTOR 1 ML SUBCUTANEOUS TAKING LACTULOSE 10 GM/15ML SOLUTION 15 ML ORALLY ONCE A DAY TAKING MOVANTIK 25 MG TABLET 1 TABLET IN THE MORNING ORALLY ONCE A DAY TAKING CYMBALTA 60 MG CAPSULE DELAYED RELEASE PARTICLES 1 CAPSULE ORALLY BID TAKING ZOHYDRO ER 50 MG CAPSULE ER 12 HOUR ABUSE-DETERRENT 1 CAPSULE ORALLY EVERY 12 HRS MDD2 TAKING ATORVASTATIN CALCIUM 10 MG TABLET 1 TABLET ORALLY ONCE A DAY DISCONTINUED ZONISAMIDE 100 MG CAPSULE 1 CAPSULE--TAKES 150 MGS ORALLY BID DISCONTINUED VITAMIN B2 100 MG ORALLY BID DISCONTINUED FUROSEMIDE 40 MG TABLET 1 TABLET ORALLY ONCE A DAY DISCONTINUED POTASSIUM CHLORIDE CR 8 MEQ ORALLY DAILY DISCONTINUED PHENTERMINE HCL 37.5 MG TABLET 1 TABLET ORALLY ONCE A DAY MEDICATION LIST REVIEWED AND RECONCILED WITH THE PATIENT PAST MEDICAL HISTORY L5-S1 CENTRAL DISC HERNIATION (BEING COVERED UNDER WORKMAN COMP) SCOLOSIS ANXIETY FIBROMYALGIA HYPOTHYROIDISM THYROID NODULE X7 HYPERTENSION PTSD 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 3DAUGHTER(S) - HEALTHY. MOTHER HAD MELANOMA. DENIES FAMILY HX OF PANCREATIC CANCER. SOCIAL HISTORY GENERAL: TOBACCO USE ARE YOU A:FORMER SMOKER HIV / HEP-C SCREENING HIV TEST OFFERED TO PATIENT:YES DATE OFFERED:02/28/2017 TEST ACCEPTED:NO HEP-C TEST OFFERED TO PATIENT:NO REASON:PATIENT DECLINED OTHERS AT HOME: SPOUSE, CHILDREN. HOUSING: RENT A DUPLEX. DIET: NORMAL. LANGUAGE LANGUAGES SPOKEN:AZERI DOMESTIC VIOLENCE DO YOU FEEL SAFE IN YOUR ENVIRONMENT?YES BMI CARE GOAL FOLLOW-UP ABOVE NORMAL BMI FOLLOW-UPDIETARY MANAGEMENT EDUCATION, GUIDANCE, AND COUNSELING RECREATIONAL DRUG USE DRUG USE?NO EXERCISE: NO REGULAR EXERCISE. LEARNING BARRIERS / SPECIAL NEEDS BARRIERS TO LEARNING?NO HEARING IMPAIRED?NO VISION IMPAIRED?YES COGNITIVELY IMPAIRED?NO :CORRECTIVE LENSES READINESS TO LEARN?YES LEARNING PREFERENCES?NO LEARNING CAPABILITIES PRESENT?YES EMOTIONAL BARRIERS?NO SPECIAL DEVICES?NO AIR FORCE SENIOR OFFICER NEEDED?NO PAIN CLINIC PFS, CLERGY, PUBLIC HEALTH REFERRALS HAS THE PATIENT BEEN EDUCATED REGARDING HIS/HER PLAN OF CARE?YES HAS THE PATIENT BEEN EDUCATED REGARDING PAIN, THE RISK FOR PAIN, THE IMPORTANCE OF EFFECTIVE PAIN MANAGEMENT, AND THE PAIN ASSESSMENT PROCESS?YES LATEX QUESTIONNAIRE LATEX ALLERGY : HAVE YOU EVER DEVELOPED ANY TYPE OF REACTION AFTER HANDLING LATEX PRODUCTS SUCH RUBBER GLOVES, CONDOMS, DIAPHRAGMS, BALLOONS, SOCKS, OR UNDERWEAR?NO LATEX ALLERGY : HAVE YOU EVER DEVELOPED ANY TYPE OF REACTION DURING OR AFTER DENTAL APPOINTMENT, VAGINAL/RECTAL EXAMINATION, SURGICAL PROCEDURE, OR ANY OTHER EXPOSURE?NO LATEX RISK : HAVE YOU EVER HAD ANY DIFFICULTY BREATHING OR HIVES AFTER EATING OR HANDLING ANY FRUITS, OR VEGETABLES; SUCH KIWI, BANANAS, STONE FRUITS, OR CHESTNUTSNO LATEX RISK : DO YOU HAVE A PREVIOUS PERSONAL HISTORY OF MORE THAN NINE SURGERIES, SPINA BIFIDA, OR REPEATED CATHERIZATIONS? NO LATEX RISK : ARE YOU FREQUENTLY EXPOSED TO LATEX PRODUCTS IN YOUR OCCUPATION?NO DATE ASKED : 04/12/2019 CAFFEINE 3-4/D NON-DIET. ADVANCE DIRECTIVE ADVANCE DIRECTIVE DISCUSSED WITH PATIENT:YES PT DOES NOT HAVE ANY ADVANCED DIRECTIVES AND SHE DECLINES INFORMATION ON HCP AT THIS TIME. [facility] [id number] NONE MARITAL STATUS: . ALCOHOL SCREENING DID YOU HAVE A DRINK CONTAINING ALCOHOL IN THE PAST YEAR?NO POINTS0 INTERPRETATIONNEGATIVE OCCUPATION: UNEMPLOYED. 08/09/17 0953 REVIEWED. BVREVIEWED WITH PAITENT 12/19/17 1200 JSREVIEWED WITH PATIENT 01/19/18 1151 JS04/11/18 REVIEWED WITH PT. ADREVIEWED WITH PATIENT 07/13/18 1146 JS04/12/19 REVIEWED WITH PT. VD. HOSPITALIZATION/MAJOR DIAGNOSTIC PROCEDURE C SECTIONS REVIEW OF SYSTEMS REVIEWED BY: PROVIDER: VASHTI MARQUEZ WOLF HUNTER-C . CONSTITUTIONAL: ANY CHANGE IN YOUR MEDICAL CONDITION? NO . CHILLS NO . FEVER NO . INFECTION: DO YOU HAVE NEW INFECTIONS? NO . DO YOU HAVE HISTORY OF MRSA? NO . MUSCULOSKELETAL: ANY NEW PATTERNS OF PAIN OR NUMBNESS? YES . GASTROENTEROLOGY: ANY NEW CHANGE IN BOWEL CONTROL? NO . GENITOURINARY: ANY NEW CHANGE IN BLADDER CONTROL? NO . IS THERE A CHANCE YOU COULD BE ? NO . HEMATOLOGY/LYMPH: DO YOU TAKE ANY BLOOD THINNERS? (FOR EXAMPLE- COUMADIN, PLAVIX, AGGRENOX, PLATEL, PRADAXA, OR XARELTO) NO . WHEN WAS YOUR LAST DOSE? DATE: TIME: . NEUROLOGY: HAVE YOU FALLEN IN THE PAST 12 MONTHS? NO . ANY NEW EXTREMITY NUMBNESS OR WEAKNESS? NO . CARDIOLOGY: DO YOU HAVE A PACEMAKER OR DEFIBRILLATOR? NO . RESPIRATORY: HAVE YOU BEEN SICK IN THE PAST WEEK? NO . FEVER NO . FLU LIKE SYMPTOMS? NO . COUGH NO . INTEGUMENTARY: DO YOU HAVE ANY RASHES OR OPEN SORES? NO . ALLERGIC/IMMUNO: ARE YOU ALLERGIC TO IV DYE? NO . ANY NEW ALLERGIES? NO . PSYCHIATRIC: DO YOU HAVE THOUGHTS OF HURTING YOURSELF OR SOMEONE ELSE? NO . ARE YOU ABUSED, NEGLECTED, OR IN AN UNSAFE ENVIRONMENT? NO . ENDOCRINOLOGY: ARE YOU DIABETIC? NO . OTHER: DO YOU NEED ANY PRESCRIPTIONS? YES . IF YES, PLEASE LIST: ____MOVANTIC . ANY NEW PROBLEMS WITH YOUR MEDICATIONS? NO . WHEN DID YOU LAST EAT? ____ . WHEN DID YOU LAST DRINK? ____ . WHAT DID YOU LAST DRINK? ____ . NAME OF PERSON DRIVING YOU HOME? ____ . DO YOU HAVE ANY OTHER QUESTIONS OR CONCERNS WRIST HAVE BEEN HURTING ON AND OFF . VITAL SIGNS WT 185.0 LBS, HT 63 IN, BMI 32.77 INDEX, BP 143/95 MM HG, HR 100 /MIN, RR 16 /MIN, TEMP 98.6 F, OXYGEN SAT % 96%, SAFE IN ENV? (Y/N) YES, NA INITIALS TL 1322, REVIEWED BY: IVA. EXAMINATION GENERAL EXAMINATION: GENERALNO ACUTE DISTRESS, WELL NOURISHED AND HYDRATED. PSYCHAPPROPRIATE MOOD AND AFFECT . LUNGS:CLEAR TO AUSCULTATION BILATERALLY, NO WHEEZES, RHONCHI, RALES. HEART:NO MURMURS, REGULAR RATE AND RHYTHM. ASSESSMENTS INTERVERTEBRAL DISC DISORDER WITH RADICULOPATHY OF LUMBAR REGION - M51.16 (PRIMARY) TREATMENT INTERVERTEBRAL DISC DISORDER WITH RADICULOPATHY OF LUMBAR REGION REFILL MOVANTIK TABLET, 25 MG, 1 TABLET IN THE MORNING, ORALLY, ONCE A DAY, 30 DAYS, 30 TABLET, REFILLS 1 CLINICAL NOTES: 43-YEAR-OLD FEMALE IN FOR CHRONIC PAIN FOLLOW-UP. GIVEN PRESENTING SYMPTOMS AND RESULTS OF PHYSICAL EXAMINATION RECOMMENDED CONTINUATION OF CURRENT MEDICATION REGIMEN WITH FOLLOW-UP IN 3 MONTHS. PATIENT TO SIGN NARCOTIC AGREEMENT TODAY. PATIENT HAS EXPRESSED UNDERSTANDING OF AND WAS IN AGREEMENT WITH TREATMENT PLAN. GIVEN TIME TO ASK QUESTIONS AND EXPRESS CONCERNS., ISTOP REGISTRY REVIEWED AND DEMONSTRATES COMPLLIANCE. (REF # [id number] ) BRINGS IN MEDICATIONS WHICH IS APPROPRIATE FOR WHAT WAS DISPENSED. RECENT URINE TOXICOLOGY REVIEWED. NO UNAUTHORIZED MEDICATIONS. NO ILLICIT SUBSTANCES AND PRESCRIBED MEDICATIONS WERE PRESENT. PROCEDURE CODES [id number] ESTABILISHED PATIENT [facility] CHARGE DISPOSITION & COMMUNICATION FOLLOW UP 3 MONTHS (REASON: LOW BACK PAIN) ELECTRONICALLY SIGNED BY ALCON PATTON ON 04/16/2019 AT 08:20 AM EST DISCLAIMER : THIS IS A VISIT SUMMARY EXTRACTED FROM THE [employer] CHART. IT IS NOT A COPY OF THE [employer] PROGRESS NOTE. SARA
== END ==
LOC: M PAIN 13:15
PROVIDERS: ATTEND Family Medicine
DX: M51.16 Intervertebral disc disorders with radiculopathy, lumbar region (principal)

== ENCOUNTER → 2019-07-12 | Outpatient (CLI) | payer OTHER ==
[~2019-07-12] MED LIST changes: -LIDO1SOL8 MT; +LIDO2SOL17 MT
--- NOTE | 2019-07-14 02:39 | ECWPNPC ---
PATIENT NAME: DENISE ABAD : 1975 GENDER: FEMALE VISIT DATE: 07/12/2019 DISCHARGE DATE: 07/12/19 1209 VISIT LOCKED DATE TIME: PHYSICIAN: DELONTE MARQUEZ RESOURCE: DELONTE MARQUEZ REASON FOR APPOINTMENT 1. 3 MONTH FOLLOW UP HISTORY OF PRESENT ILLNESS HISTORY OF PRESENT ILLNESS: PAIN THE PATIENT DESCRIBES THE PAIN... PERMISSION REQUESTED AND RECEIVED FROM PATIENT TO PERFORM TELEHEALTH VISIT. 43-YEAR-OLD FEMALE IN FOR CHRONIC PAIN FOLLOW-UP. SHE FEELS HER MEDICATIONS ARE WORKING WELL AND DENIES MED SIDE EFFECTS AT THIS TIME. SHE RATES HER PAIN CURRENTLY AT A 6-7 OUT OF 10 AND DESCRIBES IT ACHING AND SORE. FALL RISK SCREENING: SCREENING :NO FALLS REPORTED IN THE LAST YEAR CURRENT MEDICATIONS TAKING CARAFATE 1 GM TABLET 1 TABLET ORALLY FOUR TIMES DAILY PRN TAKING LOSARTAN POTASSIUM 25 MG TABLET 1 TABLET ORALLY ONCE A DAY TAKING VITAMIN D (CHOLECALCIFEROL) 1000 UNIT CAPSULE 1 CAPSULE ORALLY ONCE A DAY TAKING AIMOVIG 70 MG/ML SOLUTION AUTO-INJECTOR 1 ML SUBCUTANEOUS ONCE A MONTH TAKING LACTULOSE 10 GM/15ML SOLUTION 15 ML ORALLY ONCE A DAY TAKING CYMBALTA 60 MG CAPSULE DELAYED RELEASE PARTICLES 1 CAPSULE ORALLY DAILY TAKING ATORVASTATIN CALCIUM 10 MG TABLET 1 TABLET ORALLY ONCE A DAY TAKING MOVANTIK 25 MG TABLET 1 TABLET IN THE MORNING ORALLY ONCE A DAY TAKING ZOHYDRO ER 50 MG CAPSULE ER 12 HOUR ABUSE-DETERRENT 1 CAPSULE ORALLY EVERY 12 HRS MDD2 NOT-TAKING PERCOCET 10-325 MG TABLET 1 TABLET NEEDED ORALLY TO COVER UNTIL ZOHYDOR AVAILABLE EVERY 8 HRS NEEDED MEDICATION LIST REVIEWED AND RECONCILED WITH THE PATIENT PAST MEDICAL HISTORY L5-S1 CENTRAL DISC HERNIATION (BEING COVERED UNDER WORKMAN COMP) SCOLOSIS ANXIETY FIBROMYALGIA HYPOTHYROIDISM THYROID NODULE X7 HYPERTENSION PTSD 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 3DAUGHTER(S) - HEALTHY. MOTHER HAD MELANOMA. DENIES FAMILY HX OF PANCREATIC CANCER. SOCIAL HISTORY GENERAL: TOBACCO USE ARE YOU A:FORMER SMOKER LATEX QUESTIONNAIRE LATEX ALLERGY : HAVE YOU EVER DEVELOPED ANY TYPE OF REACTION AFTER HANDLING LATEX PRODUCTS SUCH RUBBER GLOVES, CONDOMS, DIAPHRAGMS, BALLOONS, SOCKS, OR UNDERWEAR?NO LATEX ALLERGY : HAVE YOU EVER DEVELOPED ANY TYPE OF REACTION DURING OR AFTER DENTAL APPOINTMENT, VAGINAL/RECTAL EXAMINATION, SURGICAL PROCEDURE, OR ANY OTHER EXPOSURE?NO LATEX RISK : HAVE YOU EVER HAD ANY DIFFICULTY BREATHING OR HIVES AFTER EATING OR HANDLING ANY FRUITS, OR VEGETABLES; SUCH KIWI, BANANAS, STONE FRUITS, OR CHESTNUTSNO LATEX RISK : DO YOU HAVE A PREVIOUS PERSONAL HISTORY OF MORE THAN NINE SURGERIES, SPINA BIFIDA, OR REPEATED CATHERIZATIONS? NO LATEX RISK : ARE YOU FREQUENTLY EXPOSED TO LATEX PRODUCTS IN YOUR OCCUPATION?NO DATE ASKED : 07/12/2019 BMI CARE GOAL FOLLOW-UP ABOVE NORMAL BMI FOLLOW-UPDIETARY MANAGEMENT EDUCATION, GUIDANCE, AND COUNSELING ALCOHOL SCREENING DID YOU HAVE A DRINK CONTAINING ALCOHOL IN THE PAST YEAR?NO POINTS0 INTERPRETATIONNEGATIVE RECREATIONAL DRUG USE DRUG USE?NO CAFFEINE 3-4/D NON-DIET. HIV / HEP-C SCREENING HIV TEST OFFERED TO PATIENT:YES DATE OFFERED:02/28/2017 TEST ACCEPTED:NO HEP-C TEST OFFERED TO PATIENT:NO REASON:PATIENT DECLINED MORAVIAN [id number] NONE LANGUAGE LANGUAGES SPOKEN:ANDORRAN LEARNING BARRIERS / SPECIAL NEEDS BARRIERS TO LEARNING?NO HEARING IMPAIRED?NO VISION IMPAIRED?YES :CORRECTIVE LENSES COGNITIVELY IMPAIRED?NO READINESS TO LEARN?YES LEARNING PREFERENCES?NO LEARNING CAPABILITIES PRESENT?YES EMOTIONAL BARRIERS?NO SPECIAL DEVICES?NO RESIDENCE LIFE COORDINATOR NEEDED?NO DOMESTIC VIOLENCE DO YOU FEEL SAFE IN YOUR ENVIRONMENT?YES OCCUPATION: UNEMPLOYED. DIET: NORMAL. EXERCISE: NO REGULAR EXERCISE. MARITAL STATUS: . OTHERS AT HOME: SPOUSE, CHILDREN. NEW PATIENT PAIN DIARY TODAY'S VISIT 07/12/19 PATIENT DESCRIBES PAIN :ACHING, HAVE IT ALL THE TIME, SHARP, STABBING, TENDER, THROBBING, SORE, SHOOTING FROM 0-10, WHAT LEVEL IS YOUR PAIN TODAY?7 6-7 PRECIPITATING FACTORS NOTHING IN PARTICULAR -IT IS JUST THERE. SOMETIMES WEATHER OR OVER DOING IT MAKES IT WORSE ALLEVIATING FACTORS NOTHING , MEDS TAKE THE EDGE OFF, RESTING OR LAYING DOWN, HOT SHOWER MAY DECREASE IT IMPACT ON FUNCTION LIMITS HER ON WHAT SHE IS ABLE TO DO, SHE REQUIRES HELP IN DOING MANY THINGS PAIN CLINIC PFS, CLERGY, PUBLIC HEALTH REFERRALS HAS THE PATIENT BEEN EDUCATED REGARDING HIS/HER PLAN OF CARE?YES HAS THE PATIENT BEEN EDUCATED REGARDING PAIN, THE RISK FOR PAIN, THE IMPORTANCE OF EFFECTIVE PAIN MANAGEMENT, AND THE PAIN ASSESSMENT PROCESS?YES HOUSING: RENT A DUPLEX. ADVANCE DIRECTIVE ADVANCE DIRECTIVE DISCUSSED WITH PATIENT:YES 07/12/19 PT DOES NOT HAVE ANY ADVANCED DIRECTIVES AND SHE DECLINES INFORMATION ON HCP AT THIS TIME. AD HOSPITALIZATION/MAJOR DIAGNOSTIC PROCEDURE C SECTIONS CYST BEHIND EAR-NOT SURE WHICH ONE REVIEW OF SYSTEMS REVIEWED BY: PROVIDER: VASHTI MARQUEZ SIGN WRITER HAND-C . CONSTITUTIONAL: ANY CHANGE IN YOUR MEDICAL CONDITION? NO . CHILLS NO . FEVER NO . INFECTION: DO YOU HAVE NEW INFECTIONS? NO . DO YOU HAVE HISTORY OF MRSA? YES, AFTER TEMPORAL ARTERY BIOPSY . MUSCULOSKELETAL: ANY NEW PATTERNS OF PAIN OR NUMBNESS? NO . GASTROENTEROLOGY: ANY NEW CHANGE IN BOWEL CONTROL? NO . GENITOURINARY: ANY NEW CHANGE IN BLADDER CONTROL? NO . IS THERE A CHANCE YOU COULD BE ? NO . HEMATOLOGY/LYMPH: DO YOU TAKE ANY BLOOD THINNERS? (FOR EXAMPLE- COUMADIN, PLAVIX, AGGRENOX, PLATEL, PRADAXA, OR XARELTO) NO . WHEN WAS YOUR LAST DOSE? DATE: TIME: . NEUROLOGY: HAVE YOU FALLEN IN THE PAST 12 MONTHS? NO . ANY NEW EXTREMITY NUMBNESS OR WEAKNESS? NO . CARDIOLOGY: DO YOU HAVE A PACEMAKER OR DEFIBRILLATOR? NO . RESPIRATORY: HAVE YOU BEEN SICK IN THE PAST WEEK? NO . FEVER NO . FLU LIKE SYMPTOMS? NO . COUGH YES, PCP FEELS IT IS JUST ALLERGIES . INTEGUMENTARY: DO YOU HAVE ANY RASHES OR OPEN SORES? NO . ALLERGIC/IMMUNO: ARE YOU ALLERGIC TO IV DYE? NO . ANY NEW ALLERGIES? NO . PSYCHIATRIC: DO YOU HAVE THOUGHTS OF HURTING YOURSELF OR SOMEONE ELSE? NO . ARE YOU ABUSED, NEGLECTED, OR IN AN UNSAFE ENVIRONMENT? NO . ENDOCRINOLOGY: ARE YOU DIABETIC? NO . OTHER: DO YOU NEED ANY PRESCRIPTIONS? YES . IF YES, PLEASE LIST: ZOHYDRO, LACTULOSE . ANY NEW PROBLEMS WITH YOUR MEDICATIONS? NO . WHEN DID YOU LAST EAT? ____ . WHEN DID YOU LAST DRINK? ____ . WHAT DID YOU LAST DRINK? ____ . NAME OF PERSON DRIVING YOU HOME? ____ . DO YOU HAVE ANY OTHER QUESTIONS OR CONCERNS NO . EXAMINATION GENERAL EXAMINATION: GENERALNO ACUTE DISTRESS, WELL NOURISHED AND HYDRATED. PSYCHAPPROPRIATE MOOD AND AFFECT , ORIENTED X 3. ASSESSMENTS INTERVERTEBRAL DISC DISORDER WITH RADICULOPATHY OF LUMBOSACRAL REGION - M51.17 (PRIMARY) TREATMENT INTERVERTEBRAL DISC DISORDER WITH RADICULOPATHY OF LUMBOSACRAL REGION REFILL ZOHYDRO ER CAPSULE ER 12 HOUR ABUSE-DETERRENT, 50 MG, 1 CAPSULE, ORALLY, EVERY 12 HRS MDD2, 30 DAY(S), 60, REFILLS 0 REFILL LACTULOSE SOLUTION, 10 GM/15ML, 15 ML, ORALLY, ONCE A DAY, 450 ML, REFILLS 2 CLINICAL NOTES: 43-YEAR-OLD FEMALE IN FOR CHRONIC PAIN FOLLOW-UP. GIVEN PRESENTING SYMPTOMS RECOMMEND CONTINUATION OF CURRENT MEDICATION REGIMEN WITH FOLLOW-UP IN 3 MONTHS. PATIENT HAS EXPRESSED UNDERSTANDING OF AND WAS IN AGREEMENT WITH TREATMENT PLAN. GIVEN TIME TO ASK QUESTIONS AND EXPRESS CONCERNS. , ISTOP REGISTRY REVIEWED AND DEMONSTRATES COMPLLIANCE. (REF # [id number] ) BRINGS IN MEDICATIONS WHICH IS APPROPRIATE FOR WHAT WAS DISPENSED. RECENT URINE TOXICOLOGY REVIEWED. NO UNAUTHORIZED MEDICATIONS. NO ILLICIT SUBSTANCES AND PRESCRIBED MEDICATIONS WERE PRESENT. TELEHEALTH VISIT PERFORMED VIA ZOOM. TIME SPENT WITH PATIENT 7 MINUTES. DISPOSITION & COMMUNICATION FOLLOW UP 3 MONTHS (REASON: BACK PAIN) ELECTRONICALLY SIGNED BY ALCON PATTON ON 07/13/2019 AT 01:00 PM EDT DISCLAIMER : THIS IS A VISIT SUMMARY EXTRACTED FROM THE [employer] CHART. IT IS NOT A COPY OF THE [employer] PROGRESS NOTE. SARA
== END ==
LOC: M PAIN 13:00 → M TMPAIN 13:00
PROVIDERS: ATTEND Family Medicine
DX: M51.17 Intervertebral disc disorders with radiculopathy, lumbosacral region (principal); I10 Essential (primary) hypertension; Z79.899 Other long term (current) drug therapy; Z88.8 Allergy status to other drugs, medicaments and biological substances; Z87.891 Personal history of nicotine dependence

== ENCOUNTER → 2019-10-31 | Outpatient (CLI) | payer OTHER ==
[~2019-10-31] MED LIST changes: -AMLO10TA5; +AMLO1TAB25; -CIPR0.3S AS; +CIPR0.3S6 AS; -MOVA1TAB2 PO; +NALO25TA PO
== END ==
LOC: M PAIN 13:00
PROVIDERS: ATTEND Family Medicine
DX: M51.17 Intervertebral disc disorders with radiculopathy, lumbosacral region (principal)

== ENCOUNTER → 2020-04-10 | Outpatient (CLI) | payer OTHER ==
--- NOTE | 2020-04-12 01:45 | ECWPNPC ---
PATIENT NAME: DENISE ABAD : 1975 GENDER: FEMALE VISIT DATE: 04/10/2020 DISCHARGE DATE: 04/10/20916 VISIT LOCKED DATE TIME: PHYSICIAN: DELONTE MARQUEZ RESOURCE: DELONTE MARQUEZ REASON FOR APPOINTMENT 1. BACK PAIN HISTORY OF PRESENT ILLNESS DEPRESSION SCREENING: PHQ-9 LITTLE INTEREST OR PLEASURE IN DOING THINGSSEVERAL DAYS FEELING DOWN, DEPRESSED, OR HOPELESSSEVERAL DAYS TROUBLE FALLING OR STAYING ASLEEP, OR SLEEPING TOO MUCHNOT AT ALL FEELING TIRED OR HAVING LITTLE ENERGYSEVERAL DAYS POOR APPETITE OR OVEREATING NOT AT ALL FEELING BAD ABOUT YOURSELF-OR THAT YOU ARE A FAILURE OR HAVE LET YOURSELF OR YOUR FAMILY DOWN NOT AT ALL TROUBLE CONCENTRATING ON THINGS, SUCH READING THE NEWSPAPER OR WATCHING TELEVISION NOT AT ALL MOVING OR SPEAKING SO SLOWLY THAT OTHER PEOPLE COULD HAVE NOTICED. OR THE OPPOSITE- BEING SO FIDGETY OR RESTLESS THAT YOU HAVE BEEN MOVING AROUND A LOT MORE THAN USUALNOT AT ALL THOUGHTS THAT YOU WOULD BE BETTER OFF , OR OF HURTING YOURSELF IN SOME WAY?NOT AT ALL TOTAL SCORE:3 INTERPRETATIONMINIMAL DEPRESSION PHQ-2 (2015 EDITION) LITTLE INTEREST OR PLEASURE IN DOING THINGS?SEVERAL DAYS FEELING DOWN, DEPRESSED, OR HOPELESS?SEVERAL DAYS TOTAL SCORE2 44-YEAR-OLD FEMALE IN FOR CHRONIC PAIN FOLLOW-UP. SHE RATES HER PAIN CURRENTLY AT A 7 OUT OF 10 AND DESCRIBES IT ACHING, THROBBING, AND SORE. PATIENT STATES HER MEDICATIONS ARE WORKING WELL AND DENIES MED SIDE EFFECTS AT THIS TIME. GENERAL: -. FALL RISK SCREENING: SCREENING :NO FALLS REPORTED IN THE LAST YEAR PAIN SCREENING: PATIENT HAS A COMPLAINT OF ACUTE OR CHRONIC PAIN :YES LOCATION OF PAIN:LOW BACK INTENSITY OF PAIN (SCALE OF 1 TO 10):7 WHAT DOES YOUR PAIN FEEL LIKE:ACHING, THROBBING, SORE DURATION:INTERMITTENT PAIN IS INCREASED BY:ACTIVITIES PAIN IS DECREASED BY:USE OF PAIN MEDICATIONS TREATMENT/MEDICATIONS USED TO MANAGE PAIN:OPIOIDS LEVEL OF RELIEF FROM PAIN TREATMENTS IN THE PAST:50% PAIN HAS INTERFERED WITH THE FOLLOWING:BATHING/DRESSING, WALKING ABILITY, SLEEP NURSING NOTE: -. PAIN CENTER INTAKE QUESTIONS: DO YOU HAVE A HISTORY OF MRSA? :NO DO YOU TAKE A BLOOD THINNERS? :NO DO YOU HAVE ANY BLEEDING DISORDERS? :NO ANY NEW NUMBNESS OR WEAKNESS IN YOUR LEGS OR ARMS? :YES RIGHT LEG ANY PACEMAKER,DEFIBRILLATOR, OR DORSAL COLUMN STIMULATOR? :NO DO YOU HAVE ANY RASHES OR OPEN SORES? :NO ARE YOU ALLERGIC TO IV DYE? :NO ARE YOU DIABETIC? :NO ANY NEW PROBLEMS WITH YOUR MEDICATIONS? :NO HAVE YOU RECEIVED A VACCINE IN THE PAST 30 DAYS? :NO DO YOU PLAN TO RECEIVE A VACCINE IN THE NEXT 21 DAYS? :NO DO YOU NEED ANY PRESCRIPTION? :NO DO YOU TAKE ANY IMMUNOSUPPRESSIVE MEDICATIONS? :NO IS THERE A CHANCE YOU COULD BE ? :NO ARE YOU BREAST FEEDING? :NO CURRENT MEDICATIONS TAKING LOSARTAN POTASSIUM 25 MG TABLET 1 TABLET ORALLY ONCE A DAY TAKING VITAMIN D (CHOLECALCIFEROL) 1000 UNIT CAPSULE 1 CAPSULE ORALLY ONCE A DAY TAKING AIMOVIG 70 MG/ML SOLUTION AUTO-INJECTOR 1 ML SUBCUTANEOUS ONCE A MONTH TAKING CYMBALTA 60 MG CAPSULE DELAYED RELEASE PARTICLES 1 CAPSULE ORALLY DAILY TAKING ATORVASTATIN CALCIUM 10 MG TABLET 1 TABLET ORALLY ONCE A DAY TAKING MOVANTIK 25 MG TABLET 1 TABLET IN THE MORNING ORALLY ONCE A DAY TAKING LACTULOSE 10 GM/15ML SOLUTION 15 ML ORALLY ONCE A DAY TAKING ZOHYDRO ER 50 MG CAPSULE ER 12 HOUR ABUSE-DETERRENT 1 CAPSULE ORALLY EVERY 12 HRS MDD2 TAKING ADDERALL 30 MG TABLET 1 TABLET ORALLY TWICE A DAY NOT-TAKING CARAFATE 1 GM TABLET 1 TABLET ORALLY FOUR TIMES DAILY PRN NOT-TAKING HYDROCODONE BITARTRATE ER 50 MG CAPSULE EXTENDED RELEASE 12 HOUR 1 CAPSULE ORALLY EVERY 12 HRS NOT-TAKING PERCOCET 10-325 MG TABLET 1 TABLET NEEDED ORALLY TO COVER UNTIL ZOHYDOR AVAILABLE EVERY 8 HRS NEEDED MEDICATION LIST REVIEWED AND RECONCILED WITH THE PATIENT ALLERGIES NO[ALLERGIES VERIFIED] SOCIAL HISTORY GENERAL: TOBACCO USE ARE YOU A:FORMER SMOKER LATEX QUESTIONNAIRE LATEX ALLERGY : HAVE YOU EVER DEVELOPED ANY TYPE OF REACTION AFTER HANDLING LATEX PRODUCTS SUCH RUBBER GLOVES, CONDOMS, DIAPHRAGMS, BALLOONS, SOCKS, OR UNDERWEAR?NO LATEX ALLERGY : HAVE YOU EVER DEVELOPED ANY TYPE OF REACTION DURING OR AFTER DENTAL APPOINTMENT, VAGINAL/RECTAL EXAMINATION, SURGICAL PROCEDURE, OR ANY OTHER EXPOSURE?NO LATEX RISK : HAVE YOU EVER HAD ANY DIFFICULTY BREATHING OR HIVES AFTER EATING OR HANDLING ANY FRUITS, OR VEGETABLES; SUCH KIWI, BANANAS, STONE FRUITS, OR CHESTNUTSNO LATEX RISK : DO YOU HAVE A PREVIOUS PERSONAL HISTORY OF MORE THAN NINE SURGERIES, SPINA BIFIDA, OR REPEATED CATHERIZATIONS? NO LATEX RISK : ARE YOU FREQUENTLY EXPOSED TO LATEX PRODUCTS IN YOUR OCCUPATION?NO DATE ASKED : 04/10/2020 BMI CARE GOAL FOLLOW-UP ABOVE NORMAL BMI FOLLOW-UPDIETARY MANAGEMENT EDUCATION, GUIDANCE, AND COUNSELING ALCOHOL SCREENING DID YOU HAVE A DRINK CONTAINING ALCOHOL IN THE PAST YEAR?NO POINTS0 INTERPRETATIONNEGATIVE RECREATIONAL DRUG USE DRUG USE?NO CAFFEINE 3-4/D NON-DIET. HIV / HEP-C SCREENING HIV TEST OFFERED TO PATIENT:YES DATE OFFERED:02/28/2017 TEST ACCEPTED:NO HEP-C TEST OFFERED TO PATIENT:NO REASON:PATIENT DECLINED AMISH [id number] NONE LANGUAGE LANGUAGES SPOKEN:PORTUGUESE LEARNING BARRIERS / SPECIAL NEEDS BARRIERS TO LEARNING?NO HEARING IMPAIRED?NO VISION IMPAIRED?YES :CORRECTIVE LENSES COGNITIVELY IMPAIRED?NO READINESS TO LEARN?YES LEARNING PREFERENCES?NO LEARNING CAPABILITIES PRESENT?YES EMOTIONAL BARRIERS?NO SPECIAL DEVICES?NO ENERGY SALES BROKER NEEDED?NO DOMESTIC VIOLENCE DO YOU FEEL SAFE IN YOUR ENVIRONMENT?YES OCCUPATION: UNEMPLOYED. DIET: NORMAL. EXERCISE: NO REGULAR EXERCISE. MARITAL STATUS: . OTHERS AT HOME: SPOUSE, CHILDREN. TODAY'S VISIT 07/12/19 PATIENT DESCRIBES PAIN :ACHING, HAVE IT ALL THE TIME, SHARP, STABBING, TENDER, THROBBING, SORE, SHOOTING FROM 0-10, WHAT LEVEL IS YOUR PAIN TODAY?7 6-7 PRECIPITATING FACTORS NOTHING IN PARTICULAR -IT IS JUST THERE. SOMETIMES WEATHER OR OVER DOING IT MAKES IT WORSE ALLEVIATING FACTORS NOTHING , MEDS TAKE THE EDGE OFF, RESTING OR LAYING DOWN, HOT SHOWER MAY DECREASE IT IMPACT ON FUNCTION LIMITS HER ON WHAT SHE IS ABLE TO DO, SHE REQUIRES HELP IN DOING MANY THINGS - HAS THE PATIENT BEEN EDUCATED REGARDING HIS/HER PLAN OF CARE?YES HAS THE PATIENT BEEN EDUCATED REGARDING PAIN, THE RISK FOR PAIN, THE IMPORTANCE OF EFFECTIVE PAIN MANAGEMENT, AND THE PAIN ASSESSMENT PROCESS?YES HOUSING: RENT A DUPLEX. ADVANCE DIRECTIVE ADVANCE DIRECTIVE DISCUSSED WITH PATIENT:YES 07/12/19 PT DOES NOT HAVE ANY ADVANCED DIRECTIVES AND SHE DECLINES INFORMATION ON HCP AT THIS TIME. AD REVIEW OF SYSTEMS CONSTITUTIONAL: ANY RECENT FEVER NO . CHILLS NO . WEIGHT CHANGE OF UNKNOWN REASONS NO . GASTROENTEROLOGY: NEW UNEXPLAINABLE CHANGES IN BOWEL CONTROL NO . CONSTIPATION NO . GENITOURINARY: ANY NEW CHANGE IN BLADDER CONTROL? NO . NEUROLOGY: NEW ONSET DIZZINESS OR NEUROLOGICAL CHANGES NOT MENTIONED NO . NEW NUMBNESS OR PAIN PATTERNS NOT MENTIONED AND PERTINENT TO TODAY'S VISIT NO . CARDIOLOGY: NEW CHEST PRESSURE NO . NEW CHEST PAIN NO . RESPIRATORY: UNEXPLAINABLE COUGH NO . NEW SHORTNESS OF BREATH NO . VITAL SIGNS WT 182 LBS, HT 63 IN, BMI 32.24 INDEX, BP 123/74 MM HG, HR 114 /MIN, RR 18 /MIN, TEMP 98 F, OXYGEN SAT % 100, SAFE IN ENV? (Y/N) YEST.KRISTEN LUX. EXAMINATION GENERAL EXAMINATION: GENERALNO ACUTE DISTRESS, WELL NOURISHED AND HYDRATED. PSYCHAPPROPRIATE MOOD AND AFFECT . LUNGS:CLEAR TO AUSCULTATION BILATERALLY, NO WHEEZES, RHONCHI, RALES. HEART:NO MURMURS, REGULAR RATE AND RHYTHM. ASSESSMENTS INTERVERTEBRAL DISC DISORDER WITH RADICULOPATHY OF LUMBOSACRAL REGION - M51.17 (PRIMARY), RISK: (NULL) TREATMENT INTERVERTEBRAL DISC DISORDER WITH RADICULOPATHY OF LUMBOSACRAL REGION NOTES: 44-YEAR-OLD FEMALE IN FOR CHRONIC PAIN FOLLOW-UP. GIVEN PRESENTING SYMPTOMS RECOMMENDED CONTINUATION CURRENT MEDICATION REGIMEN WITH FOLLOW-UP IN 3 MONTHS. PATIENT HAS EXPRESSED UNDERSTANDING OF AND WAS IN AGREEMENT WITH TREATMENT PLAN. GIVEN TIME TO ASK QUESTIONS AND EXPRESS CONCERNS. , ISTOP REGISTRY REVIEWED AND DEMONSTRATES COMPLLIANCE. (REF # [id number] ) BRINGS IN MEDICATIONS WHICH IS APPROPRIATE FOR WHAT WAS DISPENSED. RECENT URINE TOXICOLOGY REVIEWED. NO UNAUTHORIZED MEDICATIONS. NO ILLICIT SUBSTANCES AND PRESCRIBED MEDICATIONS WERE PRESENT. OTHERS CONTINUE MOVANTIK TABLET, 25 MG, 1 TABLET IN THE MORNING, ORALLY, ONCE A DAY, 30 DAYS, 30 TABLET, REFILLS 1 CONTINUE LACTULOSE SOLUTION, 10 GM/15ML, 15 ML, ORALLY, ONCE A DAY, 450 ML, REFILLS 2 REFILL ZOHYDRO ER CAPSULE ER 12 HOUR ABUSE-DETERRENT, 50 MG, 1 CAPSULE, ORALLY, EVERY 12 HRS MDD2, 30 DAY(S), 60, REFILLS 0 PROCEDURE CODES FA211 ESTABILISHED PATIENT [facility] CHARGE DISPOSITION & COMMUNICATION FOLLOW UP 3 MONTHS (REASON: BACK PAIN ) ELECTRONICALLY SIGNED BY ALCON PATTON ON 04/11/2020 AT 09:15 AM EST DISCLAIMER : THIS IS A VISIT SUMMARY EXTRACTED FROM THE [employer] CHART. IT IS NOT A COPY OF THE [employer] PROGRESS NOTE. SARA
== END ==
LOC: M PAIN 09:00
PROVIDERS: ATTEND Family Medicine
DX: M51.17 Intervertebral disc disorders with radiculopathy, lumbosacral region (principal); G89.29 Other chronic pain; Z87.891 Personal history of nicotine dependence; Z79.891 Long term (current) use of opiate analgesic; Z79.899 Other long term (current) drug therapy

== ENCOUNTER → 2020-05-23 | Outpatient (CLI) | payer OTHER ==
--- NOTE | 2020-05-23 12:54 | REP ---
INDICATION: SPRAIN COMPARISON: None. TECHNIQUE: AP, lateral, bilateral oblique views right foot. FINDINGS: The osseous structures and joint spaces are intact and normal. There is no evidence for acute fracture or dislocation. Surrounding soft tissues are unremarkable. No subcutaneous emphysema or radiodense foreign body. IMPRESSION: Normal right foot radiographs. No acute fracture or dislocation. <Electronically signed by Keaton oCrey > 05/23/20 [id number]
--- NOTE | 2020-05-23 12:54 | REP ---
INDICATION: SPRAIN COMPARISON: None. TECHNIQUE: AP, lateral, bilateral oblique views. FINDINGS: No acute fracture or dislocation. Skeletal structures and joint spaces are intact and normal. Ankle mortise appears stable. No subcutaneous emphysema or radiodense foreign body. IMPRESSION: Normal right ankle radiograph series. <Electronically signed by Keaton Corye > 05/23/20 [id number]
== END ==
LOC: M WUC 12:26
PROVIDERS: ATTEND Physician Assistant
DX: S93.401A Sprain of unspecified ligament of right ankle, initial encounter (principal); S93.601A Unspecified sprain of right foot, initial encounter; X58.XXXA Exposure to other specified factors, initial encounter; Y92.89 Other specified places as the place of occurrence of the external cause; Y93.89 Activity, other specified; Y99.8 Other external cause status

== ENCOUNTER → 2020-06-16 | Outpatient (CLI) | payer OTHER | LOC: M LABSMTC 14:08 | PROVIDERS: ATTEND Pediatrics | DX: Z11.52 Encounter for screening for COVID-19 (principal) | CPT/HCPCS: C9803; U0003 ==

== ENCOUNTER → 2020-06-24 | Outpatient (CLI) | payer SELFPAY | LOC: M LABSMTC 12:19 | PROVIDERS: ATTEND Pediatrics | DX: Z20.822 Contact with and (suspected) exposure to COVID-19 (principal) ==

== ENCOUNTER → 2020-07-02 | Outpatient (CLI) | payer OTHER ==
--- NOTE | 2020-07-09 04:11 | ECWPNPC ---
PATIENT NAME: DENISE ABAD : 1975 GENDER: FEMALE VISIT DATE: 07/02/2020 DISCHARGE DATE: 07/02/20 1125 VISIT LOCKED DATE TIME: PHYSICIAN: DELONTE MARQUEZ RESOURCE: DELONTE MARQUEZ REASON FOR APPOINTMENT 1. BACK PAIN HISTORY OF PRESENT ILLNESS GENERAL: PERMISSION REQUESTED AND RECEIVED FOR PATIENT TO PERFORM TELEPHONE VISIT. 44-YEAR-OLD FEMALE IN FOR CHRONIC PAIN FOLLOW-UP. PATIENT'S ZOHYDRO HAS BEEN DIFFICULT TO OBTAIN SUCH SHE WAS SWITCHED TO HYDROCODONE ACETAMINOPHEN 10/325 MG 4 TIMES A DAY DOSING AND PATIENT ADMITS THAT THIS HAS BEEN BENEFICIAL. FALL RISK SCREENING: SCREENING : NO FALLS REPORTED IN THE LAST YEAR. PAIN SCREENING: PATIENT HAS A COMPLAINT OF ACUTE OR CHRONIC PAIN :YES LOCATION OF PAIN:LOW BACK INTENSITY OF PAIN (SCALE OF 1 TO 10):8 WHAT DOES YOUR PAIN FEEL LIKE:ACHING, CONTINOUS, SORE DURATION:CONTINOUS, CONSTANT, STEADY, AWAKENS FROM SLEEP PAIN IS INCREASED BY:ACTIVITIES, PROLONGED STANDING PAIN IS DECREASED BY:USE OF PAIN MEDICATIONS, SITTING LAYING DOWN AND REGULAR MEDICATION REGIMEN NURSING NOTE: -. PAIN CENTER INTAKE QUESTIONS: DO YOU HAVE A HISTORY OF MRSA? :NO DO YOU TAKE A BLOOD THINNERS? :NO DO YOU HAVE ANY BLEEDING DISORDERS? :NO ANY NEW NUMBNESS OR WEAKNESS IN YOUR LEGS OR ARMS? :NO ANY PACEMAKER,DEFIBRILLATOR, OR DORSAL COLUMN STIMULATOR? :NO DO YOU HAVE ANY RASHES OR OPEN SORES? :NO ARE YOU ALLERGIC TO IV DYE? :NO ARE YOU DIABETIC? :NO ANY NEW PROBLEMS WITH YOUR MEDICATIONS? :YES WILL DISCUSS WITH PROVIDER HAVE YOU RECEIVED A VACCINE IN THE PAST 30 DAYS? :NO DO YOU PLAN TO RECEIVE A VACCINE IN THE NEXT 21 DAYS? :YES IF SO WHAT VACCINE AND WHEN? WOULD LIKE THE COVID VACCINATION IF IT BECOMES AVAILABLE. DO YOU NEED ANY PRESCRIPTION? :YES MOVANTIK AND LACTULOSE DO YOU TAKE ANY IMMUNOSUPPRESSIVE MEDICATIONS? :NO DO YOU HAVE ANY KIDNEY OR LIVER DISEASE? :NO IS THERE A CHANCE YOU COULD BE ? :NO ARE YOU BREAST FEEDING? :NO CURRENT MEDICATIONS TAKING LOSARTAN POTASSIUM 25 MG TABLET 1 TABLET ORALLY ONCE A DAY TAKING VITAMIN D (CHOLECALCIFEROL) 1000 UNIT CAPSULE 1 CAPSULE ORALLY ONCE A DAY TAKING AIMOVIG 70 MG/ML SOLUTION AUTO-INJECTOR 1 ML SUBCUTANEOUS ONCE A MONTH TAKING CYMBALTA 60 MG CAPSULE DELAYED RELEASE PARTICLES 1 CAPSULE ORALLY DAILY TAKING ATORVASTATIN CALCIUM 10 MG TABLET 1 TABLET ORALLY ONCE A DAY TAKING ADDERALL 30 MG TABLET 1 TABLET ORALLY TWICE A DAY TAKING MOVANTIK 25 MG TABLET 1 TABLET IN THE MORNING ORALLY ONCE A DAY TAKING LACTULOSE 10 GM/15ML SOLUTION 15 ML ORALLY ONCE A DAY TAKING HYSINGLA ER 40 MG TABLET ER 24 HOUR ABUSE-DETERRENT 1 TABLET ORALLY ONCE A DAY ALISHA NOT-TAKING HYSINGLA ER 40 MG TABLET ER 24 HOUR ABUSE-DETERRENT 1 TABLET ORALLY TWICE DAILY NOT-TAKING PERCOCET 10-325 MG TABLET 1 TABLET NEEDED ORALLY TO COVER UNTIL ZOHYDOR AVAILABLE EVERY 8 HRS NEEDED UNKNOWN CARAFATE 1 GM TABLET 1 TABLET ORALLY FOUR TIMES DAILY PRN MEDICATION LIST REVIEWED AND RECONCILED WITH THE PATIENT PAST MEDICAL HISTORY L5-S1 CENTRAL DISC HERNIATION (BEING COVERED UNDER WORKMAN COMP) SCOLOSIS ANXIETY FIBROMYALGIA HYPOTHYROIDISM THYROID NODULE X7 HYPERTENSION PTSD 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 ALLERGIES BENADRYL: RESTLESS LEG - SIDE EFFECTS SOCIAL HISTORY GENERAL: TOBACCO USE ARE YOU A:FORMER SMOKER LATEX QUESTIONNAIRE LATEX ALLERGY : HAVE YOU EVER DEVELOPED ANY TYPE OF REACTION AFTER HANDLING LATEX PRODUCTS SUCH RUBBER GLOVES, CONDOMS, DIAPHRAGMS, BALLOONS, SOCKS, OR UNDERWEAR?NO LATEX ALLERGY : HAVE YOU EVER DEVELOPED ANY TYPE OF REACTION DURING OR AFTER DENTAL APPOINTMENT, VAGINAL/RECTAL EXAMINATION, SURGICAL PROCEDURE, OR ANY OTHER EXPOSURE?NO LATEX RISK : HAVE YOU EVER HAD ANY DIFFICULTY BREATHING OR HIVES AFTER EATING OR HANDLING ANY FRUITS, OR VEGETABLES; SUCH KIWI, BANANAS, STONE FRUITS, OR CHESTNUTSNO LATEX RISK : DO YOU HAVE A PREVIOUS PERSONAL HISTORY OF MORE THAN NINE SURGERIES, SPINA BIFIDA, OR REPEATED CATHERIZATIONS? NO LATEX RISK : ARE YOU FREQUENTLY EXPOSED TO LATEX PRODUCTS IN YOUR OCCUPATION?NO DATE ASKED : 07/02/2020 ALCOHOL USE: NO. BMI CARE GOAL FOLLOW-UP ABOVE NORMAL BMI FOLLOW-UPDIETARY MANAGEMENT EDUCATION, GUIDANCE, AND COUNSELING ALCOHOL SCREENING DID YOU HAVE A DRINK CONTAINING ALCOHOL IN THE PAST YEAR?NO POINTS0 INTERPRETATIONNEGATIVE RECREATIONAL DRUG USE DRUG USE?NO CAFFEINE 3-4/D NON-DIET. 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 DIET: NORMAL. EXERCISE: NO REGULAR EXERCISE. MARITAL STATUS: . OTHERS AT HOME: SPOUSE, CHILDREN. TODAY'S VISIT 07/12/19 PATIENT DESCRIBES PAIN :ACHING, HAVE IT ALL THE TIME, SHARP, STABBING, TENDER, THROBBING, SORE, SHOOTING FROM 0-10, WHAT LEVEL IS YOUR PAIN TODAY?7 6-7 PRECIPITATING FACTORS NOTHING IN PARTICULAR -IT IS JUST THERE. SOMETIMES WEATHER OR OVER DOING IT MAKES IT WORSE ALLEVIATING FACTORS NOTHING , MEDS TAKE THE EDGE OFF, RESTING OR LAYING DOWN, HOT SHOWER MAY DECREASE IT IMPACT ON FUNCTION LIMITS HER ON WHAT SHE IS ABLE TO DO, SHE REQUIRES HELP IN DOING MANY THINGS - HAS THE PATIENT BEEN EDUCATED REGARDING HIS/HER PLAN OF CARE?YES HAS THE PATIENT BEEN EDUCATED REGARDING PAIN, THE RISK FOR PAIN, THE IMPORTANCE OF EFFECTIVE PAIN MANAGEMENT, AND THE PAIN ASSESSMENT PROCESS?YES HOUSING: RENT A [place]. ADVANCE DIRECTIVE ADVANCE DIRECTIVE DISCUSSED WITH PATIENT:YES 07/12/19 PT DOES NOT HAVE ANY ADVANCED DIRECTIVES AND SHE DECLINES INFORMATION ON HCP AT THIS TIME. AD REVIEW OF SYSTEMS CONSTITUTIONAL: ANY RECENT FEVER NO . CHILLS NO . WEIGHT CHANGE OF UNKNOWN REASONS NO . GASTROENTEROLOGY: NEW UNEXPLAINABLE CHANGES IN BOWEL CONTROL NO . CONSTIPATION NO . GENITOURINARY: ANY NEW CHANGE IN BLADDER CONTROL? NO . NEUROLOGY: NEW ONSET DIZZINESS OR NEUROLOGICAL CHANGES NOT MENTIONED NO . NEW NUMBNESS OR PAIN PATTERNS NOT MENTIONED AND PERTINENT TO TODAY'S VISIT NO . CARDIOLOGY: NEW CHEST PRESSURE NO . PATIENT DENIES NO . RESPIRATORY: UNEXPLAINABLE COUGH NO . NEW SHORTNESS OF BREATH NO . VITAL SIGNS WT 182 LBS, HT 63 IN, BMI 32.24 INDEX, SAFE IN ENV? (Y/N) YES, REVIEWED BY: CASSY TO OBTAIN VITALS DUE TO VIRTUAL VISIT. JACKSON BADILLO MA. EXAMINATION GENERAL EXAMINATION: PSYCHAPPROPRIATE MOOD AND AFFECT , ORIENTED X 3. ASSESSMENTS INTERVERTEBRAL DISC DISORDER WITH RADICULOPATHY OF LUMBOSACRAL REGION - M51.17 (PRIMARY) TREATMENT INTERVERTEBRAL DISC DISORDER WITH RADICULOPATHY OF LUMBOSACRAL REGION REFILL HYDROCODONE-ACETAMINOPHEN TABLET, 10-325 MG, 1 TABLET NEEDED, ORALLY, EVERY 6 HRS PRN PAIN MDD4, 14 DAYS, 56 NOTES: 44-YEAR-OLD FEMALE IN FOR CHRONIC PAIN FOLLOW-UP. GIVEN PRESENTING SYMPTOMS RECOMMENDED CONTINUATION OF CURRENT MEDICATION REGIMEN WITH FOLLOW-UP IN 2 MONTHS. WE WILL ATTEMPT TO GET PATIENT ON HYSINGLA SHOULD HER INSURANCE COVER IT. PATIENT HAS EXPRESSED UNDERSTANDING OF AND WAS IN AGREEMENT WITH TREATMENT PLAN. GIVEN TIME TO ASK QUESTIONS AND EXPRESS CONCERNS. , [employer]STOP REGISTRY REVIEWED AND DEMONSTRATES COMPLLIANCE. (REF # [id number] ) BRINGS IN MEDICATIONS WHICH IS APPROPRIATE FOR WHAT WAS DISPENSED. RECENT URINE TOXICOLOGY REVIEWED. NO UNAUTHORIZED MEDICATIONS. NO ILLICIT SUBSTANCES AND PRESCRIBED MEDICATIONS WERE PRESENT. VISIT PERFORMED VIA TELEPHONE. TIME SPENT WITH PATIENT 11 MINUTES. DISPOSITION & COMMUNICATION FOLLOW UP 2 MONTHS (REASON: CHRONIC PAIN) ELECTRONICALLY SIGNED BY ALCON PATTON ON 07/08/2020 AT 08:53 AM EDT DISCLAIMER : THIS IS A VISIT SUMMARY EXTRACTED FROM THE [employer] CHART. IT IS NOT A COPY OF THE [employer] PROGRESS NOTE. JAMIED
== END ==
LOC: M PAIN 11:00
PROVIDERS: ATTEND Family Medicine
DX: M51.17 Intervertebral disc disorders with radiculopathy, lumbosacral region (principal); G89.29 Other chronic pain; M79.7 Fibromyalgia; Z86.59 Personal history of other mental and behavioral disorders; Z87.891 Personal history of nicotine dependence; Z88.8 Allergy status to other drugs, medicaments and biological substances; Z79.891 Long term (current) use of opiate analgesic; Z79.899 Other long term (current) drug therapy

== ENCOUNTER 2020-08-09 01:22 | Emergency (ER) | payer OTHER ==
[~2020-08-09] VITALS: Ht 160 cm; Wt 92.8 kg
[2020-08-09 01:23] VITALS: BP 141/98
[2020-08-09] MEDS ORDERED: BUPR1FIL (01:36)
[2020-08-09] MEDS ORDERED: ONDA-83 (01:36)
[2020-08-09] MEDS ORDERED: IBUPROFEN 800 MG TAB PO ONE (04:15)
[2020-08-09] MEDS ORDERED: AUGM875T28 PO (15:24)
== END 2020-08-09 04:24 | disposition left against medical advice (07) ==
LOC: M ED 01:22 → CANBEDREQ 04:00 → M ED 04:24
DX: Z53.21 Procedure and treatment not carried out due to patient leaving prior to being seen by health care provider (principal)

== ENCOUNTER 2020-08-09 12:47 | Emergency (ER) | payer OTHER ==
[~2020-08-09] VITALS: Ht 160 cm; Wt 98.2 kg
[~2020-08-09 12:47] MED LIST changes: +BUPR1FIL; +ONDA-83
[2020-08-09 12:48] VITALS: BP 154/98
[2020-08-09] MEDS ORDERED: LIDOCAINE 1% MDV 20ML VIAL As Ordered ONE (15:00)
[2020-08-09] MEDS ORDERED: LIDOCAINE 1% MDV 20ML VIAL SC ONE (15:10)
[2020-08-09] MEDS ORDERED: AUGM875T28 PO (15:24)
== END 2020-08-09 15:45 | disposition home or self-care (01) ==
LOC: M ED 12:47
DX: N76.4 Abscess of vulva (principal); I10 Essential (primary) hypertension; E78.5 Hyperlipidemia, unspecified; J45.909 Unspecified asthma, uncomplicated; G43.909 Migraine, unspecified, not intractable, without status migrainosus; M51.9 Unspecified thoracic, thoracolumbar and lumbosacral intervertebral disc disorder; M79.7 Fibromyalgia; F32.9 Major depressive disorder, single episode, unspecified; F41.9 Anxiety disorder, unspecified; Z79.899 Other long term (current) drug therapy; Z88.8 Allergy status to other drugs, medicaments and biological substances

== ENCOUNTER → 2021-01-05 | Outpatient (REF) | payer OTHER | LOC: M LAB REF 21:54 | PROVIDERS: ATTEND Physician Assistant Medical | DX: R50.9 Fever, unspecified (principal) ==

== ENCOUNTER → 2021-03-03 | Outpatient (REF) | payer OTHER | LOC: M WUC 09:55 | PROVIDERS: ATTEND Physician Assistant | DX: R30.0 Dysuria (principal) ==

== ENCOUNTER 2022-01-21 09:00 | Emergency (ER) | payer OTHER ==
[~2022-01-21] VITALS: Ht 160 cm; Wt 82.6 kg
[~2022-01-21 09:00] MED LIST changes: +LOSA100T45 PO; -LOSA100T50 PO; -ZONI100C17 PO; +ZONI100C67 PO
[2022-01-21] MEDS ORDERED: OMEP-173 (09:24)
[2022-01-21] MEDS ORDERED: DEXTROAMP-AMPHETAMIN (09:24)
[2022-01-21] MEDS ORDERED: ONDA4TAB6 PO (12:55)
[2022-01-21] MEDS ORDERED: IBUP-1022 PO (12:55)
[2022-01-21 13:18] VITALS: BP 142/90
== END 2022-01-21 13:21 | disposition home or self-care (01) ==
LOC: M ED 09:00
DX: S06.0X1A Concussion with loss of consciousness of 30 minutes or less, initial encounter (principal); V49.40XA Driver injured in collision with unspecified motor vehicles in traffic accident, initial encounter; Y99.0 Civilian activity done for income or pay; M25.78 Osteophyte, vertebrae; G43.909 Migraine, unspecified, not intractable, without status migrainosus; E04.9 Nontoxic goiter, unspecified; J45.909 Unspecified asthma, uncomplicated; I10 Essential (primary) hypertension; F41.9 Anxiety disorder, unspecified; F32.A Depression, unspecified; Z88.8 Allergy status to other drugs, medicaments and biological substances; Z79.899 Other long term (current) drug therapy

== ENCOUNTER 2022-02-02 12:03 | Emergency (ER) | payer OTHER ==
[~2022-02-02] VITALS: Ht 160 cm; Wt 81.8 kg
[~2022-02-02 12:03] MED LIST changes: +DEXTROAMP-AMPHETAMIN; +IBUP-1022 PO; +OMEP-173; +ONDA4TAB6 PO
[2022-02-02] MEDS ORDERED: DEXTROAMP-AMPHETAMIN (12:22)
[2022-02-02] MEDS ORDERED: BUPR8SUB (12:22)
[2022-02-02 16:40] VITALS: BP 155/95
== END 2022-02-02 16:41 | disposition home or self-care (01) ==
LOC: M ED 12:03
DX: S06.0X0A Concussion without loss of consciousness, initial encounter (principal); I10 Essential (primary) hypertension; G43.909 Migraine, unspecified, not intractable, without status migrainosus; Z87.442 Personal history of urinary calculi; Z79.899 Other long term (current) drug therapy; Z88.8 Allergy status to other drugs, medicaments and biological substances

== ENCOUNTER 2022-02-02 22:43 | Emergency (ER) | payer OTHER ==
[~2022-02-02] VITALS: Ht 160 cm; Wt 81.8 kg
[~2022-02-02 22:43] MED LIST changes: +BUPR8SUB
[2022-02-02 22:45] VITALS: BP 168/98
== END 2022-02-03 00:23 | disposition left against medical advice (07) ==
LOC: M ED 22:43
DX: Z53.21 Procedure and treatment not carried out due to patient leaving prior to being seen by health care provider (principal)

== ENCOUNTER 2022-08-16 22:43 | Emergency (ER) | payer OTHER ==
[~2022-08-16 22:43] MED LIST changes: +CIPR0.3S37 AS; -CIPR0.3S6 AS; +LIDO15SO MT; -LIDO2SOL17 MT; -LOSA100T45 PO; +LOSA100T46 PO
[2022-08-16 22:44] VITALS: BP 165/107
== END 2022-08-17 01:31 | disposition left against medical advice (07) ==
LOC: M ED 22:43
DX: Z53.21 Procedure and treatment not carried out due to patient leaving prior to being seen by health care provider (principal)

== ENCOUNTER → 2023-09-01 | Outpatient (CLI) | payer BC ==
[~2023-09-01] MED LIST changes: -EFFE150C2 PO; +EFFE150C3 PO; +GASTROGRAFIN SOLUTION 30ML As Ordered ONE; -LIDO15SO MT; +LIDO15SO8 MT; +ONDA-282 PO; -ONDA4TAB6 PO
== END ==
LOC: M RAD 09:28
PROVIDERS: ATTEND Psychiatry & Neurology Neurology
DX: C76.1 Malignant neoplasm of thorax (principal); C76.2 Malignant neoplasm of abdomen; M46.07 Spinal enthesopathy, lumbosacral region
CPT/HCPCS: 71250; 74176; Q9963

== ENCOUNTER → 2023-11-10 | Outpatient (REF) | payer BC ==
[~2023-11-10] MED LIST changes: -GASTROGRAFIN SOLUTION 30ML As Ordered ONE
[2023-11-10 23:09] LABS: RSV AMPLIFICATION NEGATIVE (NEGATIVE)
== END ==
LOC: M LAB REF 22:01
PROVIDERS: ATTEND Physician Assistant
DX: B34.9 Viral infection, unspecified (principal)

== ENCOUNTER 2023-11-30 13:13 | Emergency (ER) | payer BC ==
[~2023-11-30] VITALS: Ht 160 cm; Wt 83.3 kg
[2023-11-30 13:14] VITALS: TEMP 98.4
[2023-11-30] MEDS: ACETAMINOPHEN TAB 650MG DOSE (2X325MG) PO ONE (14:50)
[2023-11-30 15:19] LABS: BASO % 0.6 % (0.0-1.0); EOS % 0.6 % (0.0-3.0); HEMATOCRIT 34.7 % (36.0-47.0); HEMOGLOBIN 12.1 g/dl (12.0-15.5); LYMPH # 1.4 10^3/uL (1.5-5.0); LYMPH % 20.3 % (24.0-44.0); MEAN CORPUSCULAR HEMOGLOBIN 28.3 pg (27.0-33.0); MEAN CORPUSCULAR HGB CONC 34.9 g/dl (32.0-36.5); MEAN CORPUSCULAR VOLUME 81.3 fl (80.0-96.0); MONO # 0.5 10^3/uL (0.0-0.8); MONO % 6.9 % (2.0-8.0); NEUTROPHILS # 4.8 10^3/uL (1.5-8.5); NEUTROPHILS % 71.5 % (36.0-66.0); PLATELET COUNT, AUTOMATED 278 10^3/uL (150-450); RED BLOOD COUNT 4.27 10^6/uL (4.00-5.40); WHITE BLOOD COUNT 6.7 10^3/uL (4.0-10.0)
[2023-11-30 15:47] LABS: BLOOD UREA NITROGEN 11 MG/DL (9-23); CALCIUM LEVEL 9.7 MG/DL (8.5-10.1); CARBON DIOXIDE LEVEL 27 MMOL/L (20-31); CHLORIDE LEVEL 104 MMOL/L (98-107); CREATININE FOR GFR 0.76 MG/DL (0.55-1.30); GLOMERULAR FILTRATION RATE > 60.0 (>58); GLUCOSE, FASTING 96 MG/DL (60-100); POTASSIUM SERUM 4.2 MMOL/L (3.5-5.1); SODIUM LEVEL 135 MMOL/L (136-145)
[2023-11-30 16:43] LABS: CK-MB VALUE MASS < 1.0 NG/ML (<3.6)
[2023-11-30 16:45] LABS: CPK CREATINE PHOSPHOKINASE 57 U/L (34-145); MB/CK RELATIVE INDEX 1.75 (< OR =4)
[2023-11-30] MEDS: lisinopriL 5 MG TAB PO ONE (16:46)
[2023-11-30 17:53] VITALS: BP 154/89
[2023-11-30 18:00] VITALS: O2SAT 97
[2023-11-30] MEDS ORDERED: CEPH500C PO (18:45)
[2023-11-30] MEDS ORDERED: IBUP-1022 PO (18:46)
[2023-11-30] MEDS ORDERED: LISI5TAB11 PO (18:51)
== END 2023-11-30 19:17 | disposition home or self-care (01) ==
LOC: M ED 13:13
DX: I10 Essential (primary) hypertension (principal); G43.909 Migraine, unspecified, not intractable, without status migrainosus; J45.909 Unspecified asthma, uncomplicated; Z87.442 Personal history of urinary calculi; M54.9 Dorsalgia, unspecified; F41.9 Anxiety disorder, unspecified; F32.A Depression, unspecified; Z79.899 Other long term (current) drug therapy; Z88.8 Allergy status to other drugs, medicaments and biological substances

== ENCOUNTER 2024-01-23 01:35 | Emergency (ER) | payer BC ==
[~2024-01-23] VITALS: Ht 160 cm; Wt 81.1 kg
[~2024-01-23 01:35] MED LIST changes: +CEPH500C PO; +LISI5TAB11 PO
[2024-01-23 01:40] VITALS: TEMP 97
[2024-01-23] MEDS: KETOROLAC 30 MG/ML 1ML VIAL IV ONE (02:09)
[2024-01-23] MEDS: ONDANSETRON 4MG 2ML VIAL IV ONE (02:09)
[2024-01-23 02:12] LABS: BASO # 0.1 10^3/uL (0.0-0.2); BASO % 0.4 % (0.0-1.0); EOS # 0.1 10^3/uL (0.0-0.5); EOS % 0.7 % (0.0-3.0); HEMATOCRIT 35.4 % (36.0-47.0); HEMOGLOBIN 12.4 g/dl (12.0-15.5); LYMPH # 2.4 10^3/uL (1.5-5.0); LYMPH % 18.4 % (24.0-44.0); MEAN CORPUSCULAR HEMOGLOBIN 28.9 pg (27.0-33.0); MEAN CORPUSCULAR VOLUME 82.5 fl (80.0-96.0); MONO % 7.6 % (2.0-8.0); NEUTROPHILS # 9.6 10^3/uL (1.5-8.5); NEUTROPHILS % 72.6 % (36.0-66.0); PLATELET COUNT, AUTOMATED 322 10^3/uL (150-450); RED BLOOD COUNT 4.29 10^6/uL (4.00-5.40); WHITE BLOOD COUNT 13.2 10^3/uL (4.0-10.0)
[2024-01-23 02:32] LABS: LIPASE 32 U/L (12-53)
[2024-01-23 02:35] LABS: ALBUMIN 3.3 G/DL (3.2-5.2); ALKALINE PHOSPHATASE 68 U/L (35-104); ALT/SGPT < 9 U/L (7.0-40); AST/SGOT < 8 U/L (<34); BILIRUBIN,DIRECT < 0.1 MG/DL (<0.4); BILIRUBIN,TOTAL 0.3 MG/DL (0.3-1.2); BLOOD UREA NITROGEN 13 MG/DL (9-23); CALCIUM LEVEL 9.2 MG/DL (8.5-10.1); CARBON DIOXIDE LEVEL 23 MMOL/L (20-31); CHLORIDE LEVEL 107 MMOL/L (98-107); CREATININE FOR GFR 0.99 MG/DL (0.55-1.30); GLOMERULAR FILTRATION RATE > 60.0 (>58); GLUCOSE, FASTING 147 MG/DL (60-100); POTASSIUM SERUM 3.6 MMOL/L (3.5-5.1); SODIUM LEVEL 138 MMOL/L (136-145); TOTAL PROTEIN 7.3 G/DL (5.7-8.2)
[2024-01-23] MEDS: HYDROMORPHONE HCL 0.5 MG/ 0.5 ML SYRINGE IV PRN (02:39)
[2024-01-23] MEDS: diazePAM 10MG/2ML SYRINGE IV ONE (03:28)
[2024-01-23] MEDS ORDERED: VALI5TAB PO (04:09)
[2024-01-23 05:00] VITALS: BP 114/60; O2SAT 97
[2024-01-23] MEDS: diazePAM 5MG TABLET PO ONE (05:02)
== END 2024-01-23 05:06 | disposition home or self-care (01) ==
LOC: M ED 01:35
DX: D25.9 Leiomyoma of uterus, unspecified (principal); Z87.442 Personal history of urinary calculi; G43.909 Migraine, unspecified, not intractable, without status migrainosus; Z79.899 Other long term (current) drug therapy; Z88.8 Allergy status to other drugs, medicaments and biological substances
CPT/HCPCS: 74176; 80048; 80076; 83690; 85025; 96374; 96375; 99284; J1171; J1885; J2405; J3360

== ENCOUNTER → 2024-03-19 | Outpatient (CLI) | payer BC ==
[~2024-03-19] MED LIST changes: -LACT10SO3 PO; +LACT10SO94 PO
[2024-03-19 09:50] LABS: FOLLICLE STIMULATING HORMONE 0.9 mIU/ML; FREE T4 1.21 NG/DL (0.89-1.76); LUTEINIZING HORMONE < 0.1 mIU/ML
[2024-03-20 07:07] LABS: THYROID STIMULATING HORMONE 2.529 uIU/ML (0.55-4.78)
== END ==
LOC: M LAB 08:45
PROVIDERS: ATTEND Obstetrics & Gynecology
DX: N92.1 Excessive and frequent menstruation with irregular cycle (principal)

== ENCOUNTER → 2024-03-19 | Outpatient (CLI) | payer BC | LOC: M WHC 07:45 | PROVIDERS: ATTEND Obstetrics & Gynecology | DX: D25.1 Intramural leiomyoma of uterus (principal); N92.1 Excessive and frequent menstruation with irregular cycle; N88.8 Other specified noninflammatory disorders of cervix uteri ==

== ENCOUNTER → 2024-04-26 | Outpatient (CLI) | payer BC ==
[~2024-04-26] MED LIST changes: +BUPR1SUB4 SL; +LISI10TA24 PO; +VIEN1TAB PO
[2024-04-26 08:36] LABS: BASO % 0.7 % (0.0-1.0); EOS # 0.1 10^3/uL (0.0-0.5); EOS % 1.1 % (0.0-3.0); HEMATOCRIT 37.6 % (36.0-47.0); HEMOGLOBIN 12.5 g/dl (12.0-15.5); LYMPH % 21.6 % (24.0-44.0); MEAN CORPUSCULAR HEMOGLOBIN 27.5 pg (27.0-33.0); MEAN CORPUSCULAR HGB CONC 33.2 g/dl (32.0-36.5); MEAN CORPUSCULAR VOLUME 82.6 fl (80.0-96.0); MONO # 0.3 10^3/uL (0.0-0.8); MONO % 6.8 % (2.0-8.0); NEUTROPHILS # 3.1 10^3/uL (1.5-8.5); NEUTROPHILS % 69.8 % (36.0-66.0); PLATELET COUNT, AUTOMATED 295 10^3/uL (150-450); RED BLOOD COUNT 4.55 10^6/uL (4.00-5.40); WHITE BLOOD COUNT 4.4 10^3/uL (4.0-10.0)
[2024-04-26 08:47] LABS: INR 0.93; PROTHROMBIN TIME 12.8 SECONDS (12.5-14.5)
[2024-04-26 09:02] LABS: ALBUMIN 3.6 G/DL (3.2-5.2); ALKALINE PHOSPHATASE 59 U/L (35-104); ALT/SGPT 41 U/L (7.0-40); AST/SGOT 24 U/L (<34); BILIRUBIN,TOTAL 0.6 MG/DL (0.3-1.2); BLOOD UREA NITROGEN 15 MG/DL (9-23); CALCIUM LEVEL 9.4 MG/DL (8.5-10.1); CARBON DIOXIDE LEVEL 23 MMOL/L (20-31); CHLORIDE LEVEL 107 MMOL/L (98-107); CREATININE FOR GFR 0.95 MG/DL (0.55-1.30); GLOMERULAR FILTRATION RATE > 60.0 (>58); GLUCOSE, FASTING 147 MG/DL (60-100); POTASSIUM SERUM 3.9 MMOL/L (3.5-5.1); SODIUM LEVEL 141 MMOL/L (136-145); TOTAL PROTEIN 7.3 G/DL (5.7-8.2)
== END ==
LOC: M LAB 07:19
PROVIDERS: ATTEND Physical Therapist
DX: Z01.818 Encounter for other preprocedural examination (principal); N80.9 Endometriosis, unspecified

== ENCOUNTER 2024-05-02 06:55 | Day surgery (SDC) | payer BC ==
[~2024-05-02] VITALS: Ht 160 cm; Wt 80.5 kg
[2024-05-02] MEDS ORDERED: NS (Normal Saline) 0.9% 1,000 ML IV SCH ×2 (07:15→10:25)
[2024-05-02 07:38] LABS: HEMATOCRIT 35.5 % (36.0-47.0); HEMOGLOBIN 12.1 g/dl (12.0-15.5); MEAN CORPUSCULAR HEMOGLOBIN 27.9 pg (27.0-33.0); MEAN CORPUSCULAR HGB CONC 34.1 g/dl (32.0-36.5); MEAN CORPUSCULAR VOLUME 81.8 fl (80.0-96.0); PLATELET COUNT, AUTOMATED 285 10^3/uL (150-450); RED BLOOD COUNT 4.34 10^6/uL (4.00-5.40); WHITE BLOOD COUNT 4.5 10^3/uL (4.0-10.0)
[2024-05-02] MEDS: SCOPOLAMINE 1MG TRANSDERMAL PATCH TOP ONE (08:29)
[2024-05-02] MEDS ORDERED: dexmedeTOMIDine (4MCG/ML)200MCG/50ML BTL (PRECEDEX) As Ordered ONE (08:38)
[2024-05-02] MEDS ORDERED: LIDOCAINE 2% 100MG/5ML SDV (FOR ANES.) As Ordered ONE (08:38)
[2024-05-02] MEDS ORDERED: KETOROLAC 60MG 2ML VIAL As Ordered ONE (08:38)
[2024-05-02] MEDS ORDERED: ONDANSETRON 4MG 2ML VIAL As Ordered ONE (08:38)
[2024-05-02] MEDS ORDERED: propofoL 200 MG/20 ML VIAL As Ordered ONE (08:38)
[2024-05-02] MEDS ORDERED: MIDAZOLAM INJ 2MG/2ML VIAL As Ordered ONE (08:38)
[2024-05-02] MEDS ORDERED: fentaNYL 100 MCG/2 ML INJECTION As Ordered ONE (08:38)
[2024-05-02] MEDS ORDERED: ACETAMINOPHEN 1000MG/100ML IV BAG As Ordered ONE (09:21)
[2024-05-02] MEDS: ceFAZolin SOD 2 GM in IV 1 EA IV ONE (09:49)
[2024-05-02] MEDS ORDERED: KETAMINE HCL 200MG/20ML VIAL As Ordered ONE (09:58)
[2024-05-02] MEDS ORDERED: ePHEDrine SULFATE 25 MG/5 ML(5MG/ML) SYRINGE As Ordered ONE (10:11)
[2024-05-02] MEDS ORDERED: fentaNYL 100 MCG/2 ML INJECTION IV PRN (10:25)
[2024-05-02] MEDS: oxyCODONE 5MG TAB PO PRN (10:43)
[2024-05-02] MEDS: ONDANSETRON 4MG 2ML VIAL IV PRN (10:43)
[2024-05-02] MEDS: HYDROMORPHONE HCL 0.5 MG/ 0.5 ML SYRINGE IV PRN (10:44)
[2024-05-02 11:36] VITALS: BP 168/85; TEMP 97.3; O2SAT 96
[2024-05-02] MEDS ORDERED: PERCOCET 5MG/325MG TAB PO PRN (12:00)
[2024-05-02] MEDS ORDERED: IBUPROFEN 800 MG TAB PO SCH (18:00)
== END 2024-05-02 12:25 | disposition home or self-care (01) ==
LOC: M SDC 06:55
PROVIDERS: ATTEND Obstetrics & Gynecology
DX: D25.9 Leiomyoma of uterus, unspecified (principal); N93.9 Abnormal uterine and vaginal bleeding, unspecified; I10 Essential (primary) hypertension; E04.1 Nontoxic single thyroid nodule; M79.7 Fibromyalgia; Z88.8 Allergy status to other drugs, medicaments and biological substances; Z79.899 Other long term (current) drug therapy; F41.9 Anxiety disorder, unspecified; F32.A Depression, unspecified; F43.10 Post-traumatic stress disorder, unspecified
CPT/HCPCS: 36415; 58558; 81025; 85027; 86850; 86900; 86901; 88305; J0131; J0690; J1100; J1171; J1885; J2250; J2405; J3010

== ENCOUNTER → 2024-06-11 | Outpatient (REF) | payer BC ==
[2024-06-11 17:59] LABS: BASO % 0.6 % (0.0-1.0); EOS % 0.6 % (0.0-3.0); HEMATOCRIT 37.6 % (36.0-47.0); HEMOGLOBIN 13.1 g/dl (12.0-15.5); LYMPH # 1.7 10^3/uL (1.5-5.0); MEAN CORPUSCULAR HEMOGLOBIN 29.2 pg (27.0-33.0); MEAN CORPUSCULAR HGB CONC 34.8 g/dl (32.0-36.5); MEAN CORPUSCULAR VOLUME 83.9 fl (80.0-96.0); MONO # 0.4 10^3/uL (0.0-0.8); MONO % 6.7 % (2.0-8.0); NEUTROPHILS # 4.1 10^3/uL (1.5-8.5); NEUTROPHILS % 64.8 % (36.0-66.0); PLATELET COUNT, AUTOMATED 307 10^3/uL (150-450); RED BLOOD COUNT 4.48 10^6/uL (4.00-5.40); WHITE BLOOD COUNT 6.4 10^3/uL (4.0-10.0)
[2024-06-11 18:06] LABS: PERCENT SATURATION 20.2 % (13.2-45.0)
[2024-06-11 18:09] LABS: FERRITIN 7.8 NG/ML (7.3-270.7)
== END ==
LOC: M LAB REF 16:47
PROVIDERS: ATTEND Advanced Practice Midwife
DX: N92.1 Excessive and frequent menstruation with irregular cycle (principal); D25.9 Leiomyoma of uterus, unspecified; R10.2 Pelvic and perineal pain

== ENCOUNTER → 2024-07-13 | Outpatient (CLI) | payer BC ==
[~2024-07-13] MED LIST changes: -AMBI10TA PO; +AMPH1TAB2 PO; +ONDA-284 PO; +ZOLP-533 PO
[2024-07-13 07:40] LABS: BASO % 0.7 % (0.0-1.0); EOS # 0.1 10^3/uL (0.0-0.5); EOS % 1.4 % (0.0-3.0); HEMATOCRIT 36.5 % (36.0-47.0); HEMOGLOBIN 12.8 g/dl (12.0-15.5); LYMPH # 1.1 10^3/uL (1.5-5.0); LYMPH % 24.8 % (24.0-44.0); MEAN CORPUSCULAR HEMOGLOBIN 29.5 pg (27.0-33.0); MEAN CORPUSCULAR HGB CONC 35.1 g/dl (32.0-36.5); MEAN CORPUSCULAR VOLUME 84.1 fl (80.0-96.0); MONO # 0.4 10^3/uL (0.0-0.8); MONO % 9.5 % (2.0-8.0); NEUTROPHILS # 2.8 10^3/uL (1.5-8.5); NEUTROPHILS % 63.4 % (36.0-66.0); PLATELET COUNT, AUTOMATED 265 10^3/uL (150-450); RED BLOOD COUNT 4.34 10^6/uL (4.00-5.40); WHITE BLOOD COUNT 4.4 10^3/uL (4.0-10.0)
[2024-07-13 07:54] LABS: INR 0.89; PARTIAL THROMBOPLASTIN TIME 26.2 SECONDS (24.8-34.2); PROTHROMBIN TIME 12.4 SECONDS (12.5-14.5)
[2024-07-13 08:11] LABS: ALBUMIN 3.5 G/DL (3.2-5.2); ALKALINE PHOSPHATASE 60 U/L (35-104); ALT/SGPT 18 U/L (7.0-40); AST/SGOT 11 U/L (<34); BILIRUBIN,TOTAL 0.4 MG/DL (0.3-1.2); BLOOD UREA NITROGEN 14 MG/DL (9-23); CALCIUM LEVEL 8.5 MG/DL (8.5-10.1); CARBON DIOXIDE LEVEL 28 MMOL/L (20-31); CHLORIDE LEVEL 104 MMOL/L (98-107); CREATININE FOR GFR 0.79 MG/DL (0.55-1.30); GLOMERULAR FILTRATION RATE > 90.0 (>58); GLUCOSE, FASTING 128 MG/DL (60-100); POTASSIUM SERUM 4.3 MMOL/L (3.5-5.1); SODIUM LEVEL 139 MMOL/L (136-145); TOTAL PROTEIN 6.8 G/DL (5.7-8.2)
== END ==
LOC: M LAB 06:57
PROVIDERS: ATTEND Physical Therapist
DX: Z01.818 Encounter for other preprocedural examination (principal); N80.9 Endometriosis, unspecified

== ENCOUNTER 2024-07-25 06:55 | Day surgery (SDC) | payer BC ==
[~2024-07-25] VITALS: Ht 160 cm; Wt 75.5 kg
[2024-07-25] MEDS ORDERED: LR 1,000 ML IV SCH (07:05)
[2024-07-25 07:27] LABS: HEMATOCRIT 38.9 % (36.0-47.0); HEMOGLOBIN 13.7 g/dl (12.0-15.5); MEAN CORPUSCULAR HEMOGLOBIN 29.7 pg (27.0-33.0); MEAN CORPUSCULAR HGB CONC 35.2 g/dl (32.0-36.5); MEAN CORPUSCULAR VOLUME 84.2 fl (80.0-96.0); PLATELET COUNT, AUTOMATED 351 10^3/uL (150-450); RED BLOOD COUNT 4.62 10^6/uL (4.00-5.40); WHITE BLOOD COUNT 5.5 10^3/uL (4.0-10.0)
[2024-07-25 08:15] LABS: CALCIUM LEVEL 9.2 MG/DL (8.5-10.1); CREATININE FOR GFR 1.06 MG/DL (0.55-1.30); GLOMERULAR FILTRATION RATE 65.6 (>58); POTASSIUM SERUM 3.9 MMOL/L (3.5-5.1)
[2024-07-25] MEDS: ONDANSETRON 4MG 2ML VIAL IV ONE (08:47)
[2024-07-25] MEDS: SCOPOLAMINE 1MG TRANSDERMAL PATCH TOP ONE (08:47)
[2024-07-25] MEDS ORDERED: propofoL 200 MG/20 ML VIAL As Ordered ONE (08:57)
[2024-07-25] MEDS ORDERED: LIDOCAINE 2% 100MG/5ML SDV (FOR ANES.) As Ordered ONE (08:57)
[2024-07-25] MEDS ORDERED: MIDAZOLAM INJ 2MG/2ML VIAL As Ordered ONE (08:57)
[2024-07-25] MEDS ORDERED: SUGAMMADEX SODIUM 500 MG/5 ML VIAL (BRIDION) As Ordered ONE (08:57)
[2024-07-25] MEDS ORDERED: ROCURONIUM BROMIDE 50MG/5ML VIAL As Ordered ONE (08:57)
[2024-07-25] MEDS ORDERED: fentaNYL 250 MCG/5 ML INJECTION As Ordered ONE (08:57)
[2024-07-25] MEDS ORDERED: KETOROLAC 30 MG/ML 1ML VIAL As Ordered ONE (08:57)
[2024-07-25] MEDS ORDERED: ONDANSETRON 4MG 2ML VIAL As Ordered ONE (08:57)
[2024-07-25] MEDS: ceFAZolin SOD 2 GM IV ONCE IV ONE (10:45)
[2024-07-25] MEDS ORDERED: PROMETHAZINE 25MG/ML 1ML VIAL ONE (11:20)
[2024-07-25] MEDS ORDERED: ACETAMINOPHEN 1000MG/100ML IV BAG As Ordered ONE (11:42)
[2024-07-25] MEDS ORDERED: HYDROmorphone HCL 2MG/ML 1ML VIAL As Ordered ONE (12:10)
[2024-07-25] MEDS ORDERED: KETAMINE HCL 200MG/20ML VIAL As Ordered ONE (12:13)
[2024-07-25] MEDS: FLUORESCEIN 10% (100MG/ML) 5ML VIAL As Ordered ONE (12:36)
[2024-07-25] MEDS ORDERED: oxyCODONE 5MG TAB PO PRN (13:00)
[2024-07-25] MEDS ORDERED: ONDANSETRON 4MG 2ML VIAL IV PRN (13:00)
[2024-07-25] MEDS: fentaNYL 100 MCG/2 ML INJECTION IV PRN (13:29)
[2024-07-25] MEDS ORDERED: KETO-204 PO (13:37)
[2024-07-25] MEDS: HYDROMORPHONE HCL 0.5 MG/ 0.5 ML SYRINGE IV PRN (13:56)
[2024-07-25 15:00] VITALS: BP 136/75; TEMP 96.3; O2SAT 98
[2024-07-25] MEDS: LR 1,000 ML IV SCH (15:12)
[2024-07-25 15:30] VITALS: BP 135/73; TEMP 98.1; O2SAT 98
[2024-07-25 16:00] VITALS: BP 128/77; TEMP 98; O2SAT 96
[2024-07-25] MEDS: PERCOCET 5MG/325MG TAB PO PRN (16:03)
[2024-07-25 17:00] VITALS: BP 135/71; TEMP 99.1; O2SAT 98
[2024-07-25] MEDS: IBUPROFEN 800 MG TAB PO SCH (17:06)
[2024-07-25] MEDS: SIMETHICONE 80MG CHEW TAB PO SCH (17:06)
== END 2024-07-25 17:50 | disposition home or self-care (01) ==
LOC: M SDC 06:55 → M PED 15:00 → M SDC 17:50
PROVIDERS: ATTEND Obstetrics & Gynecology
DX: N92.0 Excessive and frequent menstruation with regular cycle (principal); R10.2 Pelvic and perineal pain; N73.6 Female pelvic peritoneal adhesions (postinfective); D25.9 Leiomyoma of uterus, unspecified; N80.03 Adenomyosis of the uterus; Z88.8 Allergy status to other drugs, medicaments and biological substances; I10 Essential (primary) hypertension; M79.7 Fibromyalgia; F90.9 Attention-deficit hyperactivity disorder, unspecified type; F43.10 Post-traumatic stress disorder, unspecified; Z79.899 Other long term (current) drug therapy
CPT/HCPCS: 36415; 58571; 80048; 81025; 85027; 86850; 86900; 86901; 88307; J0131; J0665; J0690; J1100; J1171; J1885; J2250; J2405; J2550; J3010; S2900

== ENCOUNTER 2024-07-26 11:32 | Emergency (ER) | payer BC ==
[~2024-07-26] VITALS: Ht 160 cm; Wt 77.2 kg
[~2024-07-26 11:32] MED LIST changes: +KETO-204 PO
[2024-07-26 14:29] VITALS: BP 132/79; TEMP 98.3; O2SAT 98
== END 2024-07-26 16:03 | disposition home or self-care (01) ==
LOC: M ED 11:32
DX: I80.8 Phlebitis and thrombophlebitis of other sites (principal); I10 Essential (primary) hypertension; G43.909 Migraine, unspecified, not intractable, without status migrainosus; J45.909 Unspecified asthma, uncomplicated; Z88.8 Allergy status to other drugs, medicaments and biological substances; Z90.710 Acquired absence of both cervix and uterus; Z79.899 Other long term (current) drug therapy

== ENCOUNTER 2024-07-27 14:46 | Emergency (ER) | payer BC | END 2024-07-27 15:20 | disposition left against medical advice (07) | LOC: M ED 14:46 | DX: Z53.21 Procedure and treatment not carried out due to patient leaving prior to being seen by health care provider (principal) ==

== ENCOUNTER → 2024-08-02 | Outpatient (CLI) | payer BC | LOC: M RAD 13:00 | PROVIDERS: ATTEND Radiology Diagnostic Radiology | DX: I82.612 Acute embolism and thrombosis of superficial veins of left upper extremity (principal) ==

== ENCOUNTER → 2024-10-31 | Outpatient (CLI) | payer BC | LOC: M RAD 13:23 | PROVIDERS: ATTEND Physical Therapist | DX: I82.712 Chronic embolism and thrombosis of superficial veins of left upper extremity (principal) ==